=== PATIENT | male | born 1970 | race Caucasian/White ===

== ENCOUNTER 2020-10-26 06:16 | Inpatient (IN) ==
[2020-10-26] MEDS ORDERED: KETOROLAC TROMETHAMINE 15 MG/ML VIAL IV STA (06:50)
[2020-10-26] MEDS ORDERED: SODIUM CHLORIDE 0.9% 1000ML 1,000 ML IV ONE (07:10)
[2020-10-26] MEDS ORDERED: ACETAMINOPHEN 1,000 MG/100 ML VIAL IV STA (07:27)
[2020-10-26 07:29] LABS: INR 1.3 (0.9-1.1); Partial Thromboplastin Ratio 1.1; Partial Thromboplastin Time 27.9 Seconds (21.0-31.0); Prothrombin Time 13.1 Seconds (9.0-12.0)
[2020-10-26 07:31] LABS: Alanine Aminotransferase 28 U/L (12-78); Albumin Level 2.7 gm/dl (3.4-5.0); Aspartate Aminotransferase 78 U/L (15-37); BUN Creatinine Ratio 15.9 (10-20); Blood Urea Nitrogen 13 mg/dl (7-18); Carbon Dioxide 20 mmol/L (21-32); Chloride 101 mmol/L (98-107); Est GFR (African American) 119.3; Est GFR (Non-African American) 102.9; Glucose 103 mg/dl (70-99); Magnesium 2.2 mg/dl (1.8-2.4); Potassium 3.2 mmol/L (3.5-5.1); Sodium 131 mmol/L (136-145)
[2020-10-26 07:33] LABS: Albumin Globulin Ratio 0.6 (0.9-2); Alkaline Phosphatase 67 U/L (45-117); Bilirubin,Total 3.9 mg/dl (0.2-1); Globulin 4.4 gm/dl (2.5-4.0); Total Protein 7.1 gm/dl (6.4-8.2)
[2020-10-26 07:42] LABS: Procalcitonin 0.45 ng/ml (0-0.5)
--- NOTE | 2020-10-26 07:43 | Emergency Department Note ---
History of Present Illness General Chief complaint: Rash Stated complaint: KNEES AND ANKLES HURT,HANDS HURT,RASH ALL OVER Time Seen by Provider: 10/26/20 06:58 Source: patient and family (Spouse who is at the bedside) Mode of arrival: ambulatory Limitations: no limitations History of Present Illness Maximum Pain Intensity: 8 This patient comes in as described above. He is felt sick for about 4 days. He said he had a fever and just felt wiped out. He has had diffuse body aches particularly in his hands and feet. He had a rash starting yesterday morning. He was seen at the urgent care center and he said they ran some labs but they are all pending. He said initially his rash did itch but it just feels like it is burning now. Temperature up to 101.3 at 5 in the morning. No nausea or vomiting. Denies headache neck pain or stiffness. He has had severe joint aches started in the hips. No known tick bites. He does not feel weak. No abdominal pain or chest pain or shortness of breath no sore throat. His urine has been dark but he said no dysuria. No back pain. No diarrhea or blood or melena stool. No sick contacts. He did have Covid about a month and a half ago. Home Medications Medication Instructions Recorded Confirmed Type No Known Home Medications 08/27/19 10/26/20 History Allergies Allergy/AdvReac Type Severity Reaction Status Date / Time No Known Allergies Allergy Unverified 10/26/20 06:48 Past Med/Surg History Medical History (Updated 10/26/20 @ 15:04 by Oren Trujillo MD) Hypertension Family History Father Myocardial infarction Hypertension Grandfather Diabetes Social History Smoking Status: Former smoker Years Smoked: 41; Second Hand Exposure: Yes; Do You Dip or Chew Tobacco: Yes; Tobacco Cessation Education Requested by Patient: Yes Hx Alcohol Use: Yes (pt quit using alcohol in past 90 days) Alcohol type: hard liquor Preferred Language: Occitan Communication Ability: Effective Grinder Set Up Operator Required: No Beliefs That Will Affect Care: None Current Living Situation: Spouse Other Information That Helps Us Care for You: No Feels Safe at Home: Yes Assistive Devices: None Review of Systems A total of 10 systems reviewed and were otherwise negative Physical Exam Vital Signs Vital Signs - 24 hr 10/26/20 06:20 10/26/20 07:19 10/26/20 07:24 Temperature 37.3 C Temperature Source Temporal Artery Scan Pulse Rate 111 H 101 H Pulse Rate from SpO2 Sensor 101 H Respiratory Rate 20 20 Respiratory Effort / Characteristics Non-Labored Spontaneous Non-Labored Respiratory Depth Normal Respiratory Pattern Regular Blood Pressure 167/80 H 126/72 Blood Pressure Mean 109 90 Blood Pressure Position Sitting Pulse Oximetry 97 96 95 Oxygen Delivery Method Room Air Room Air Sepsis Recent Fever Within 48 Hours No Sepsis New/Unexplained Change in Mental Status No Sepsis Action Taken by Nursing No Action Required 10/26/20 07:30 10/26/20 08:00 Temperature Temperature Source Pulse Rate 106 H 101 H Pulse Rate from SpO2 Sensor 106 H 102 H Respiratory Rate 17 21 Respiratory Effort / Characteristics Respiratory Depth Respiratory Pattern Blood Pressure 117/78 124/65 Blood Pressure Mean 91 84 Blood Pressure Position Pulse Oximetry 97 96 Oxygen Delivery Method Sepsis Recent Fever Within 48 Hours Sepsis New/Unexplained Change in Mental Status Sepsis Action Taken by Nursing General: Well developed well nourished in no acute distress, breathing comfortably on room air. Normal speech HEENT: Normal cephalic atraumatic. Pupils are equal round and reactive to light. Extraocular movements are intact. Oropharynx is pink with moist mucous membranes. No swelling of the mouth lips or tongue. Neck: Supple with a midline trachea. No meningeal signs or stiffness, no JVD or bruits. No Stridor. Chest: Clear to auscultation bilaterally. No wheezes or rhonchi. No increased work of breathing. Heart: Regular rate and rhythm without murmurs or gallops. Abdomen: Soft nontender, nondistended without rebound guarding or rigidity. Extremities: No cyanosis clubbing or edema. No calf tenderness or assymetry Spine/Back. Non tender to palpation. No CVA tenderness Skin: Good turgor without rashes. Neurologic exam: Cranial nerves two through 12 are intact. Motor and sensation are intact and symmetrical throughout. Course Administered Medications Acetaminophen (Acetaminophen 325 Mg Tab) 650 mg PO Q4H PRN PRN Reason: Pain or Fever Stop: 11/25/20 10:15 Last Admin: 10/26/20 13:30 Dose: 650 mg Documented by: [id number] Sodium Chloride (Nss 1000ml) 1,000 mls @ 100 mls/hr IV .Q10H BLANCHE Stop: 11/25/20 10:15 Last Admin: 10/26/20 10:49 Dose: 100 mls/hr Documented by: [id number] Doxycycline Hyclate 100 mg/ (Dextrose) 110 mls @ 50 mls/hr IV Q12 BLANCHE Stop: 10/28/20 10:29 Last Infusion: 10/26/20 13:45 Dose: 0 mls/hr Documented by: [id number] Admin: 10/26/20 11:33 Dose: 50 mls/hr Documented by: [id number] Discontinued Medications Sodium Chloride (Nss 1000ml) 1,000 mls @ 999 mls/hr IV .Q1H1M ONE Stop: 10/26/20 08:10 Last Infusion: 10/26/20 08:20 Dose: 0 mls/hr Documented by: [id number] Admin: 10/26/20 07:19 Dose: 999 mls/hr Documented by: [id number] Acetaminophen (Ofirmev) 1,000 mg in 100 mls @ 400 mls/hr IV NOW STA Stop: 10/26/20 07:41 Last Admin: 10/26/20 07:31 Dose: Not Given Documented by: [id number] Ceftriaxone Sodium (Rocephin) 2,000 mg in 70 mls @ 140 mls/hr IV NOW STA Stop: 10/26/20 08:32 Last Infusion: 10/26/20 08:42 Dose: 0 mls/hr Documented by: [id number] Admin: 10/26/20 08:12 Dose: 140 mls/hr Documented by: [id number] Ketorolac Tromethamine (Ketorolac Tromethamine 15 Mg/Ml Vial) 10 mg IV NOW STA Stop: 10/26/20 06:51 Last Admin: 10/26/20 06:53 Dose: 10 mg Documented by: [id number] Medical Decision Making Differential Diagnosis Sepsis, tickborne illness, viral illness, Covid, thrombocytopenia, bone marrow process, liver disease, kidney disease, electrolyte or metabolic abnormality Laboratory Data Result diagrams: 10/26/20 06:54 10/26/20 06:54 Lab Results 10/26/20 10/26/20 10/26/20 Range/Units 06:54 06:54 06:54 WBC 5.52 (4.8-10.8) K/uL RBC 3.61 L (4.7-6.1) M/uL Hgb 11.8 L (14.0-18.0) g/dL Hct 34.0 L (42-52) % MCV 94.2 (80-100) fL MCH 32.7 (25-34) pg MCHC 34.7 (32-36) g/dL RDW Std Deviation 51.8 H (36.4-46.3) fL RDW Coeff of Mina 15.2 H (11.5-14.5) % Plt Count 77 L (130-400) K/uL MPV 10.5 H (7.4-10.4) fL Immature Gran % (Auto) 0.2 % Neut % (Auto) 73.6 % Lymph % (Auto) 17.0 % [place] % (Auto) 7.4 % Eos % (Auto) 1.1 % Baso % (Auto) 0.7 % Neut # (Auto) 4.06 (1.4-6.5) K/uL Lymph # (Auto) 0.94 L (1.2-3.4) K/uL [place] # (Auto) 0.41 (0.11-0.59) K/uL Eos # (Auto) 0.06 (0-0.5) K/uL Baso # (Auto) 0.04 (0-0.2) K/uL Immature Gran # (Auto) 0.01 (0.00-0.02) K/uL Platelet Estimate Decreased L (Normal) PT 13.1 H (9.0-12.0) Seconds INR 1.3 H (0.9-1.1) APTT 27.9 (21.0-31.0) Seconds PTT Ratio 1.1 Sodium 131 L (136-145) mmol/L Potassium 3.2 L (3.5-5.1) mmol/L Chloride 101 (98-107) mmol/L Carbon Dioxide 20 L (21-32) mmol/L Anion Gap 10.0 (3-11) BUN 13 (7-18) mg/dl Creatinine 0.81 (0.6-1.4) mg/dl Est Cr Clr Drug Dosing Not Reportable Est GFR ( Amer) 119.3 Est GFR (Non-Af Amer) 102.9 BUN/Creatinine Ratio 15.9 (10-20) Glucose 103 H (70-99) mg/dl Lactate (0.4-2.0) mmol/L Calcium 8.0 L (8.5-10.1) mg/dl Magnesium 2.2 (1.8-2.4) mg/dl Total Bilirubin 3.9 H (0.2-1) mg/dl AST 78 H (15-37) U/L ALT 28 (12-78) U/L Alkaline Phosphatase 67 (45-117) U/L Total Protein 7.1 (6.4-8.2) gm/dl Albumin 2.7 L (3.4-5.0) gm/dl Globulin 4.4 H (2.5-4.0) gm/dl Albumin/Globulin Ratio 0.6 L (0.9-2) Procalcitonin (0-0.5) ng/ml Anaplasma Smear See Comment Lyme Disease IgG Ab (Negative) Lyme Disease IgM Ab (Negative) COVID-19 Eval Order SARS-CoV-2, RNA, NAAT (NEGATIVE) 10/26/20 10/26/20 10/26/20 Range/Units 06:54 07:22 08:30 WBC (4.8-10.8) K/uL RBC (4.7-6.1) M/uL Hgb (14.0-18.0) g/dL Hct (42-52) % MCV (80-100) fL MCH (25-34) pg MCHC (32-36) g/dL RDW Std Deviation (36.4-46.3) fL RDW Coeff of Mina (11.5-14.5) % Plt Count (130-400) K/uL MPV (7.4-10.4) fL Immature Gran % (Auto) % Neut % (Auto) % Lymph % (Auto) % [place] % (Auto) % Eos % (Auto) % Baso % (Auto) % Neut # (Auto) (1.4-6.5) K/uL Lymph # (Auto) (1.2-3.4) K/uL [place] # (Auto) (0.11-0.59) K/uL Eos # (Auto) (0-0.5) K/uL Baso # (Auto) (0-0.2) K/uL Immature Gran # (Auto) (0.00-0.02) K/uL Platelet Estimate (Normal) PT (9.0-12.0) Seconds INR (0.9-1.1) APTT (21.0-31.0) Seconds PTT Ratio Sodium (136-145) mmol/L Potassium (3.5-5.1) mmol/L Chloride (98-107) mmol/L Carbon Dioxide (21-32) mmol/L Anion Gap (3-11) BUN (7-18) mg/dl Creatinine (0.6-1.4) mg/dl Est Cr Clr Drug Dosing Est GFR ( Amer) Est GFR (Non-Af Amer) BUN/Creatinine Ratio (10-20) Glucose (70-99) mg/dl Lactate 2.7 H* (0.4-2.0) mmol/L Calcium (8.5-10.1) mg/dl Magnesium (1.8-2.4) mg/dl Total Bilirubin (0.2-1) mg/dl AST (15-37) U/L ALT (12-78) U/L Alkaline Phosphatase (45-117) U/L Total Protein (6.4-8.2) gm/dl Albumin (3.4-5.0) gm/dl Globulin (2.5-4.0) gm/dl Albumin/Globulin Ratio (0.9-2) Procalcitonin 0.45 (0-0.5) ng/ml Anaplasma Smear Lyme Disease IgG Ab Negative (Negative) Lyme Disease IgM Ab Negative (Negative) COVID-19 Eval Order Covid19 IDNow atMWIC SARS-CoV-2, RNA, NAAT (NEGATIVE) 10/26/20 Range/Units 08:30 WBC (4.8-10.8) K/uL RBC (4.7-6.1) M/uL Hgb (14.0-18.0) g/dL Hct (42-52) % MCV (80-100) fL MCH (25-34) pg MCHC (32-36) g/dL RDW Std Deviation (36.4-46.3) fL RDW Coeff of Mina (11.5-14.5) % Plt Count (130-400) K/uL MPV (7.4-10.4) fL Immature Gran % (Auto) % Neut % (Auto) % Lymph % (Auto) % [place] % (Auto) % Eos % (Auto) % Baso % (Auto) % Neut # (Auto) (1.4-6.5) K/uL Lymph # (Auto) (1.2-3.4) K/uL [place] # (Auto) (0.11-0.59) K/uL Eos # (Auto) (0-0.5) K/uL Baso # (Auto) (0-0.2) K/uL Immature Gran # (Auto) (0.00-0.02) K/uL Platelet Estimate (Normal) PT (9.0-12.0) Seconds INR (0.9-1.1) APTT (21.0-31.0) Seconds PTT Ratio Sodium (136-145) mmol/L Potassium (3.5-5.1) mmol/L Chloride (98-107) mmol/L Carbon Dioxide (21-32) mmol/L Anion Gap (3-11) BUN (7-18) mg/dl Creatinine (0.6-1.4) mg/dl Est Cr Clr Drug Dosing Est GFR ( Amer) Est GFR (Non-Af Amer) BUN/Creatinine Ratio (10-20) Glucose (70-99) mg/dl Lactate (0.4-2.0) mmol/L Calcium (8.5-10.1) mg/dl Magnesium (1.8-2.4) mg/dl Total Bilirubin (0.2-1) mg/dl AST (15-37) U/L ALT (12-78) U/L Alkaline Phosphatase (45-117) U/L Total Protein (6.4-8.2) gm/dl Albumin (3.4-5.0) gm/dl Globulin (2.5-4.0) gm/dl Albumin/Globulin Ratio (0.9-2) Procalcitonin (0-0.5) ng/ml Anaplasma Smear Lyme Disease IgG Ab (Negative) Lyme Disease IgM Ab (Negative) COVID-19 Eval Order SARS-CoV-2, RNA, NAAT NEGATIVE (NEGATIVE) Imaging Data My Impression: Chest x-rayno acute infiltrate, failure, pneumothorax Radiologist's Impression: XR chest 1V portable HISTORY: SEPSIS COMPARISON: Chest 08/27/2019. FINDINGS: No pneumothorax. No pleural effusions. The cardiac silhouette remains borderline enlarged. No evidence for pulmonary edema. No new focal lung consolidations to suggest pneumonia. IMPRESSION: No significant change compared to the prior study. No acute process. ECG Data Attestation: I personally reviewed and interpreted this ECG as follows: Indication: + weakness Rate (beats per minute): 100 Rhythm: + normal sinus ECG Intervals/blocks: + Normal QRS, + Prolonged QT and + Normal KS ECG Eagle: + Normal ECG ST segments: + Normal ST segments ECG Findings: no PACs and no PVCs Comparison ECG Date: from (08/27/19) Change: no significant change MDM Narrative This patient comes in with body aches and a fever and rash. He looks well on exam is nontoxic he has no headache neck pain or stiffness. No known bug bites. His rash in the torso is more diffuse and does emily in the shins it does not emily although there is some chronic vascular insufficiency changes. IV asked established hydrated with normal saline boluses. His white count is not elevated. His platelets are low at 77. I did give him Rocephin 2 g IV to cover the possibility of a tickborne illness or bacterial illness. Cultures have been sent as well as lactic acid is mildly elevated in the 2 range. Chest x-ray is unremarkable. Lyme and anaplasmosis testing so far are negative but it could still be a tickborne illness. Additionally, it could be a viral illness. Covid testing was negative. His bilirubin is moderately elevated. I do think he needs to be admitted for further treatment and evaluation he has been covered with IV antibiotics and cultures are pending. I have consulted Dr. Maldonado who saw the patient for these measures. Continuous cardiac monitoring: Order was placed in the EMR for continuous cardiac monitoring. The patient was noted to be in normal sinus rhythm with a rate of 95 Impression & Plan Sepsis, Rash, Thrombocytopenia, Ache in joint, Lab test negative for COVID-19 virus Discharge Plan Visit Data Chief Complaint: Rash Stated Complaint: KNEES AND ANKLES HURT,HANDS HURT,RASH ALL OVER ED Provider: Oren Trujillo Discharge Problem: Sepsis, Rash, Thrombocytopenia, Ache in joint, Lab test negative for COVID-19 virus Patient Disposition: Admitted As Inpatient Discharge Instructions Interventions: ED Discharge Assessment Last Done: 10/26/20 09:41 Discharge Problem: Sepsis Qualifiers: Sepsis type: sepsis due to unspecified organism Sepsis acute organ dysfunction status: unspecified Qualified Code(s): A41.9 - Sepsis, unspecified organism Ache in joint Qualifiers: Joint pain location: unspecified Qualified Code(s): M25.50 - Pain in unspecified joint
--- NOTE | 2020-10-26 07:45 | XRay Report ---
XR chest 1V portable HISTORY: SEPSIS COMPARISON: Chest 08/27/2019. FINDINGS: No pneumothorax. No pleural effusions. The cardiac silhouette remains borderline enlarged. No evidence for pulmonary edema. No new focal lung consolidations to suggest pneumonia. IMPRESSION: No significant change compared to the prior study. No acute process. ACT 112: Negative or not required by law. Electronically signed by: Blair Willis M.D. 10/26/2020 7:43 AM
[2020-10-26 07:46] LABS: Hemoglobin 11.8 g/dL (14.0-18.0); Mean Corpuscular Hemoglobin 32.7 pg (25-34); Mean Corpuscular Hgb Conc 34.7 g/dL (32-36); Mean Corpuscular Volume 94.2 fL (80-100); Mean Platelet Volume 10.5 fL (7.4-10.4); Platelet Count 77 K/uL (130-400); RDW Coefficient of Variation 15.2 % (11.5-14.5); RDW Standard Deviation 51.8 fL (36.4-46.3); Red Blood Count 3.61 M/uL (4.7-6.1); White Blood Count 5.52 K/uL (4.8-10.8)
[2020-10-26 07:48] LABS: Basophils # (auto) 0.04 K/uL (0-0.2); Basophils % (auto) 0.7 %; Eosinophils # (auto) 0.06 K/uL (0-0.5); Eosinophils % (auto) 1.1 %; Immature Granulocytes # (auto) 0.01 K/uL (0.00-0.02); Immature Granulocytes % (auto) 0.2 %; Lyme Ab IgG w/WB Rflx Negative (Negative); Lyme Ab IgM w/WB Rflx Negative (Negative); Lymphocytes # (auto) 0.94 K/uL (1.2-3.4); Monocytes # (auto) 0.41 K/uL (0.11-0.59); Monocytes % (auto) 7.4 %; Neutrophils # (auto) 4.06 K/uL (1.4-6.5); Neutrophils % (auto) 73.6 %; Platelet Estimate Decreased (Normal)
[2020-10-26] MEDS ORDERED: cefTRIAXone SODIUM 2,000 MG/70 ML BAG IV STA (08:03)
[2020-10-26 10:04] LABS: Appearance Urine Clear (Clear); Bacteria Urine Automated Negative (Negative); Blood Urine Negative (Negative); Color Urine Orange; Glucose Urine UA Negative (Negative); Ketones Urine Trace (Negative); Leukocyte Esterase Urine 1+ (Negative); Nitrite Urine Positive (Negative); Protein Urine Trace (Negative); RBC Urine Automated 0-4 /hpf (0-4); Specific Gravity Urine 1.024 (1.000-1.030); Urobilinogen Urine Negative (Negative); pH Urine 5.5 (4.5-7.5)
[2020-10-26 10:10] LABS: Bilirubin Urine 1+ (Negative)
[2020-10-26] MEDS ORDERED: ONDANSETRON INJ 2 MG/ML 2 ML VIAL IV PRN (10:16)
[2020-10-26] MEDS: SODIUM CHLORIDE 0.9% 1000ML 1,000 ML IV SCH ×2 (10:49→20:43)
[2020-10-26] MEDS: DOXYCYCLINE HYCLATE 100 MG in DEXTROSE 5% 100 ML IV SCH ×2 (11:33→20:43)
--- NOTE | 2020-10-26 12:00 | Ultrasound Report ---
ULTRASOUND ABDOMEN COMPLETE CLINICAL HISTORY: Sepsis. Elevated bilirubin. COMPARISON STUDY: No priors. TECHNIQUE: Real-time, grayscale, and color flow sonography of the abdomen was performed. Images are r eviewed in the transverse and longitudinal planes. FINDINGS: Liver: The liver is enlarged, cirrhotic in morphology, and heterogeneous in echotexture. There is nod ularity of the hepatic surface contour. There is no intrahepatic biliary ductal dilatation. The main portal vein is patent. Gallbladder: The gallbladder is normal in appearance. No gallstones are identified. There is no gallb ladder wall thickening or pericholecystic fluid. A sonographic Baires's sign is reportedly absent. Th e common bile duct measures up to 0.7 cm in diameter. Pancreas: Not well visualized due to overlying bowel gas. Spleen: The spleen is enlarged and heterogeneous, measuring 20.3 cm in length. Kidneys: The kidneys are normal in size and echotexture. There is no hydronephrosis. The right kidney measures 15.3 cm in length and the left kidney measures 12.8 cm in length. No shadowing calculi are identified. Abdominal vasculature: Visualized portions of the abdominal aorta and IVC are normal as imaged. Ascites: None. IMPRESSION: 1. The liver is enlarged, cirrhotic in morphology, and heterogeneous in echotexture. 2. Marked splenomegaly. 3. No gallstones are identified. ACT 112: Negative or not required by law. Electronically signed by: Demetrius Whitman M.D. 10/26/2020 11:58 AM
[2020-10-26] MEDS: ACETAMINOPHEN 325 MG TAB PO PRN ×2 (13:30→19:38)
--- NOTE | 2020-10-26 15:08 | History & Physical Report ---
Date of Service October 26, 2020 Assessment & Plan (1) Sepsis: fever at home of 101.3, tachycardia unclear etiology, could be viral infection vs tick born illness no evidence of pneumonia, UTI or intra-abdominal infection continue NSS 100cc/hr for today Tylenol PRN, Toradol IV PRN for joint pain (2) Rash: suspect virus vs Lyme or anaplasmosis monitor for improvement (3) Thrombocytopenia: low at 77k, confirmed that there is no clumping could be multifactorial with splenomegaly suspected from hepatomegaly also, acute reaction to viral or bacterial infection monitor platelets closely hold on DVT prophylaxis (4) Arthralgia: severe joint pain, given clinical picture would fit with a reactive arthritis check ESR and CRP this afternoon his pain is already a lot better with just Tylenol (5) Cirrhosis: abdominal US with evidence of cirrhosis, suspect this is due to heavy alcohol abuse for 30 years bilirubin is 3.9, platelets 77k, INR 1.3 check hepatitis panel this afternoon discussed importance of continued abstinence from alcohol recommend follow up with gastroenterology in clinic, will need to follow LFT, platelets etc. (6) History of alcohol abuse: heavy abuse for 30 years, could drink up to a bottle a day sober for 90 days now encouraged him to remain sober as he cannot damage his liver further (7) Elevated bilirubin: 3.9, he says his urine has been dark for several weeks so might not be an acute rise in bilirubin no obstruction on abdominal US repeat this afternoon and tomorrow morning (8) Elevated INR: due to cirrhosis could be DIC? PTT is normal which argues against this will repeat INR, PTT, fibrin, degradation products, CBC (9) Hypokalemia: give 20mEq BID (10) Anemia: normocytic, 11.8, it was normal at the beginning of the year, large drop in a few months also has thrombocytopenia, rash that appears like purpura check peripheral smear to look for MAHA Admission and Anticipated Discharge Date Admission Date: October 26, 2020 History of Present Illness Chief Complaint: I hurt all over, could not walk Primary Care Provider: NO PCP 49 yo male with a history of alcohol abuse but no other history, presents to the ED this morning with complaint of diffuse rash and severe joint aches. He says that the rash started yesterday around noon, diffuse on feet, legs, arms, hands, chest and back but most intense on his legs and feet. He also noted some swelling in his legs bilaterally. As time went on he developed joint pains in his wrists, elbows, knees, ankles. The pain became very severe last night to the point that he could not even walk, he needed his sons to help him walk to the car. He has never experienced symptoms like this in the past. Two days ago he reports some mild flu like symptoms of malaise, low grade temperature, fatigue but these resolved after 24 hours. He says he normally does not get sick, never goes to the doctor. No one else around him is ill. He did not take Tylenol or ibuprofen because he did not want to harm his kidneys. He presented to the ED with tachycardia but BP preserved, RR normal, no fever and no hypoxia. WBC normal, Hb low at 11, platelets low at 77k. INR up slightly at 1.3, PTT normal. Na low at 131, K 3.2, Cr 0.8 and BUN 13. Lactic acid 2.0, total bili 3.9, AST 78, ALT and Alk phos normal. Urine very dark with no signs of UTI. CXR normal. Blood cultures obtained. COVID negative, Lyme screen negative, anaplasmosis smear normal. He was given NSS bolus and Rocephin IV and Tylenol. Currently he feels a lot better, the joint pains are significantly improved, still has the rash but more prominent in his legs. He is eating and drinking well, looking forward to dinner. He admits to heavy drinking for 30 years, says he stopped drinking 90 days ago. He said it was possible for him to drink a fifth of hard liquor a day. He has never been told he has cirrhosis. His is at the bedside, she confirms that he stopped drinking 90 days ago but was a very heavy drinker prior to that. Allergies Allergy/AdvReac Type Severity Reaction Status Date / Time No Known Allergies Allergy Unverified 10/26/20 06:48 Home Medications Medication Instructions Recorded Confirmed Type No Known Home Medications 08/27/19 10/26/20 History Past Med/Surg History Medical History (Updated 10/26/20 @ 15:19 by Lance Maldonado DO) Hypertension Family History Father Myocardial infarction Hypertension Grandfather Diabetes Social History Smoking Status: Former smoker Years Smoked: 41; Smoking End Date: Smoked for 41 years; Second Hand Exposure: Yes; Do You Dip or Chew Tobacco: Yes; Tobacco Cessation Education Requested by Patient: Yes Hx Alcohol Use: Yes (pt quit using alcohol in past 90 days) Alcohol type: hard liquor Preferred Language: Welsh Communication Ability: Effective Banquet Prep Cook Required: No Beliefs That Will Affect Care: None Current Living Situation: Spouse Other Information That Helps Us Care for You: No Feels Safe at Home: Yes Safety Concerns: Feels Safe At This Time Assistive Devices: None Review of Systems Review of Systems: All systems reviewed & are unremarkable except as noted in HPI & below Physical Exam Constitutional: WD/WN, vitals as above comfortable and + overweight; no acute distress Eyes: normal visual hamlin by confrontation, PERRL and EOM intact bilaterally; sclerae not anicteric ENMT: external ear and nose normal, oropharynx normal Neck: trachea midline, no thyromegaly Respiratory: normal respiratory effort, lungs clear to auscultation Cardiovascular: RRR, no murmur, no edema Gastrointestinal (Abdomen): normal bowel sounds, soft, nontender, no hepatosplenomegaly Musculoskeletal: no cyanosis or clubbing, extremities motor strength 5/5 Skin: + rash (diffuse, red, worst on legs/feet) Neurologic: patellar DTR's 2+ bilat, sensation intact and PERRL, EOMI, accommodation nl, no face palsy, no dysarthria Psychiatric: A+Ox3, euthymic affect Lymphatic: no cervical or axillary lymphadenopathy Results & Data Results & Data ([facility]) Vital Signs (Past 12 Hours) Vital Signs Temp Pulse Pulse Resp BP BP Pulse Ox 10/26/20 11:32 98 H 10/26/20 10:22 36.8 C 100 H 20 132/74 93 10/26/20 10:17 36.8 C 100 H 20 132/74 93 10/26/20 09:07 112 H 24 115/51 L 95 10/26/20 08:00 101 H 21 124/65 96 10/26/20 07:30 106 H 17 117/78 97 10/26/20 07:24 95 10/26/20 07:19 101 H 20 126/72 96 10/26/20 06:20 37.3 C 111 H 20 167/80 H 97 Laboratory Results Laboratory Results - last 24 hr 10/26/20 10/26/20 10/26/20 06:54 06:54 06:54 WBC 5.52 RBC 3.61 L Hgb 11.8 L Hct 34.0 L MCV 94.2 MCH 32.7 MCHC 34.7 RDW Std Deviation 51.8 H RDW Coeff of Mina 15.2 H Plt Count 77 L MPV 10.5 H Immature Gran % (Auto) 0.2 Neut % (Auto) 73.6 Lymph % (Auto) 17.0 Jay % (Auto) 7.4 Eos % (Auto) 1.1 Baso % (Auto) 0.7 Neut # (Auto) 4.06 Lymph # (Auto) 0.94 L Jay # (Auto) 0.41 Eos # (Auto) 0.06 Baso # (Auto) 0.04 Immature Gran # (Auto) 0.01 Platelet Estimate Decreased L PT 13.1 H INR 1.3 H APTT 27.9 PTT Ratio 1.1 Sodium 131 L Potassium 3.2 L Chloride 101 Carbon Dioxide 20 L Anion Gap 10.0 BUN 13 Creatinine 0.81 Est Cr Clr Drug Dosing Not Reportable Est GFR ( Amer) 119.3 Est GFR (Non-Af Amer) 102.9 BUN/Creatinine Ratio 15.9 Glucose 103 H Lactate Calcium 8.0 L Magnesium 2.2 Total Bilirubin 3.9 H AST 78 H ALT 28 Alkaline Phosphatase 67 Total Protein 7.1 Albumin 2.7 L Globulin 4.4 H Albumin/Globulin Ratio 0.6 L Procalcitonin Urine Color Urine Appearance Urine pH Ur Specific [place] Urine Protein Urine Glucose (UA) Urine Ketones Urine Blood Urine Nitrite Urine Bilirubin Urine Urobilinogen Ur Leukocyte Esterase Urine WBC (Auto) Urine RBC (Auto) U Hyaline Cast (Auto) U Epithel Cells (Auto) Urine Bacteria (Auto) Anaplasma Smear See Comment A. phagocytophilum DNA Lyme Disease IgG Ab Lyme Disease IgM Ab COVID-19 Eval Order SARS-CoV-2, RNA, NAAT 10/26/20 10/26/20 10/26/20 06:54 06:54 07:22 WBC RBC Hgb Hct MCV MCH MCHC RDW Std Deviation RDW Coeff of Mina Plt Count MPV Immature Gran % (Auto) Neut % (Auto) Lymph % (Auto) Jay % (Auto) Eos % (Auto) Baso % (Auto) Neut # (Auto) Lymph # (Auto) Jay # (Auto) Eos # (Auto) Baso # (Auto) Immature Gran # (Auto) Platelet Estimate PT INR APTT PTT Ratio Sodium Potassium Chloride Carbon Dioxide Anion Gap BUN Creatinine Est Cr Clr Drug Dosing Est GFR ( Amer) Est GFR (Non-Af Amer) BUN/Creatinine Ratio Glucose Lactate 2.7 H* Calcium Magnesium Total Bilirubin AST ALT Alkaline Phosphatase Total Protein Albumin Globulin Albumin/Globulin Ratio Procalcitonin 0.45 Urine Color Urine Appearance Urine pH Ur Specific [place] Urine Protein Urine Glucose (UA) Urine Ketones Urine Blood Urine Nitrite Urine Bilirubin Urine Urobilinogen Ur Leukocyte Esterase Urine WBC (Auto) Urine RBC (Auto) U Hyaline Cast (Auto) U Epithel Cells (Auto) Urine Bacteria (Auto) Anaplasma Smear A. phagocytophilum DNA Pending Lyme Disease IgG Ab Negative Lyme Disease IgM Ab Negative COVID-19 Eval Order SARS-CoV-2, RNA, NAAT 10/26/20 10/26/20 10/26/20 08:30 08:30 09:12 WBC RBC Hgb Hct MCV MCH MCHC RDW Std Deviation RDW Coeff of Mina Plt Count MPV Immature Gran % (Auto) Neut % (Auto) Lymph % (Auto) Jay % (Auto) Eos % (Auto) Baso % (Auto) Neut # (Auto) Lymph # (Auto) Jay # (Auto) Eos # (Auto) Baso # (Auto) Immature Gran # (Auto) Platelet Estimate PT INR APTT PTT Ratio Sodium Potassium Chloride Carbon Dioxide Anion Gap BUN Creatinine Est Cr Clr Drug Dosing Est GFR ( Amer) Est GFR (Non-Af Amer) BUN/Creatinine Ratio Glucose Lactate 2.0 Calcium Magnesium Total Bilirubin AST ALT Alkaline Phosphatase Total Protein Albumin Globulin Albumin/Globulin Ratio Procalcitonin Urine Color Urine Appearance Urine pH Ur Specific [place] Urine Protein Urine Glucose (UA) Urine Ketones Urine Blood Urine Nitrite Urine Bilirubin Urine Urobilinogen Ur Leukocyte Esterase Urine WBC (Auto) Urine RBC (Auto) U Hyaline Cast (Auto) U Epithel Cells (Auto) Urine Bacteria (Auto) Anaplasma Smear A. phagocytophilum DNA Lyme Disease IgG Ab Lyme Disease IgM Ab COVID-19 Eval [facility] SARS-CoV-2, RNA, NAAT NEGATIVE 10/26/20 09:40 WBC RBC Hgb Hct MCV MCH MCHC RDW Std Deviation RDW Coeff of Mina Plt Count MPV Immature Gran % (Auto) Neut % (Auto) Lymph % (Auto) Jay % (Auto) Eos % (Auto) Baso % (Auto) Neut # (Auto) Lymph # (Auto) Jay # (Auto) Eos # (Auto) Baso # (Auto) Immature Gran # (Auto) Platelet Estimate PT INR APTT PTT Ratio Sodium Potassium Chloride Carbon Dioxide Anion Gap BUN Creatinine Est Cr Clr Drug Dosing Est GFR ( Amer) Est GFR (Non-Af Amer) BUN/Creatinine Ratio Glucose Lactate Calcium Magnesium Total Bilirubin AST ALT Alkaline Phosphatase Total Protein Albumin Globulin Albumin/Globulin Ratio Procalcitonin Urine Color [place] Urine Appearance Clear Urine pH 5.5 Ur Specific [place] 1.024 Urine Protein Trace H Urine Glucose (UA) Negative Urine Ketones Trace H Urine Blood Negative Urine Nitrite Positive A Urine Bilirubin 1+ H Urine Urobilinogen Negative Ur Leukocyte Esterase 1+ H Urine WBC (Auto) 1-5 Urine RBC (Auto) 0-4 U Hyaline Cast (Auto) 5-10 H U Epithel Cells (Auto) 10-20 H Urine Bacteria (Auto) Negative Anaplasma Smear A. phagocytophilum DNA Lyme Disease IgG Ab Lyme Disease IgM Ab COVID-19 Eval Order SARS-CoV-2, RNA, NAAT Diagnostic Findings Abdominal ultrasound IMPRESSION: 1. The liver is enlarged, cirrhotic in morphology, and heterogeneous in ech otexture. 2. Marked splenomegaly. 3. No gallstones are identified. XR chest 1V portable FINDINGS: No pneumothorax. No pleural effusions. The cardiac silhouette remains borderline enlarged. No evidence for pulmonary edema. No new focal lung consolidations to suggest pneumonia. IMPRESSION: No significant change compared to the prior study. No acute process. Code Status & VTE Plan VTE Prophylaxis Plan VTE Prophylaxis will be ordered: Yes PG Care Time/CCT Total # of Minutes Spent Total Time Spent with Patient: Total time spent is greater than 50% in coordination of care (as documented) at patient's floor/unit and/or counseling patient: Coding Level of Care Code 75381 Initial Inpt Care Lvl 3 Diagnoses Sepsis A41.9 Sepsis acute organ dysfunction status: unspecified Sepsis type: sepsis due to unspecified organism Rash R21 Thrombocytopenia D69.6 Arthralgia M25.50 Cirrhosis K74.60 History of alcohol abuse F10.11 Elevated bilirubin R17 Elevated INR R79.1 Hypokalemia E87.6 Anemia D64.9 (1) Sepsis Sepsis acute organ dysfunction status: unspecified Sepsis type: sepsis due to unspecified organism Qualified Code(s): A41.9 - Sepsis, unspecified organism
[2020-10-26 16:28] LABS: Hematocrit (blood only) 32.8 % (42-52); Hemoglobin 11.4 g/dL (14.0-18.0); Mean Corpuscular Hemoglobin 32.8 pg (25-34); Mean Corpuscular Hgb Conc 34.8 g/dL (32-36); Mean Corpuscular Volume 94.3 fL (80-100); RDW Coefficient of Variation 15.4 % (11.5-14.5); RDW Standard Deviation 53.3 fL (36.4-46.3); Red Blood Count 3.48 M/uL (4.7-6.1); White Blood Count 3.92 K/uL (4.8-10.8)
[2020-10-26 16:48] LABS: Albumin Level 2.5 gm/dl (3.4-5.0); BUN Creatinine Ratio 18.5 (10-20); Calcium 7.5 mg/dl (8.5-10.1); Creatinine Clr Calc Pharmacy 198.8 ml/min; Est GFR (African American) 122.4; Est GFR (Non-African American) 105.6; Potassium 3.2 mmol/L (3.5-5.1)
[2020-10-26 16:54] LABS: Albumin Globulin Ratio 0.6 (0.9-2); Bilirubin,Total 2.8 mg/dl (0.2-1); C Reactive Protein 9.53 mg/dl (0-0.29); Ferritin 356.7 ng/ml (8-388); Globulin 4.3 gm/dl (2.5-4.0); Total Protein 6.8 gm/dl (6.4-8.2)
[2020-10-26 17:03] LABS: Fibrinogen 312 mg/dl (184-400); INR 1.3 (0.9-1.1); Partial Thromboplastin Ratio 1.1; Partial Thromboplastin Time 29.4 Seconds (21.0-31.0); Prothrombin Time 12.7 Seconds (9.0-12.0)
[2020-10-26 17:04] LABS: Mean Platelet Volume 10.3 fL (7.4-10.4); Platelet Count 67 K/uL (130-400)
[2020-10-26 17:10] LABS: Hepatitis B Surf Ag Rflx Conf Neg (Neg)
[2020-10-26 17:13] LABS: Folate (Folic Acid) 11.9 ng/ml (>5.38)
[2020-10-26 17:19] LABS: Basophils # (auto) 0.04 K/uL (0-0.2); Eosinophils # (auto) 0.09 K/uL (0-0.5); Eosinophils % (auto) 2.3 %; Immature Granulocytes # (auto) 0.01 K/uL (0.00-0.02); Immature Granulocytes % (auto) 0.3 %; Lymphocytes # (auto) 0.78 K/uL (1.2-3.4); Lymphocytes % (auto) 19.9 %; Monocytes % (auto) 7.7 %; Neutrophils % (auto) 68.8 %
[2020-10-26 17:39] LABS: Hepatitis C IgG 13Yrs+Old_Rflx Neg (Neg)
[2020-10-26] MEDS: POTASSIUM CHLORIDE CRTAB 20 MEQ TABCR PO SCH (20:48)
[2020-10-26] MEDS: KETOROLAC TROMETHAMINE 15 MG/ML VIAL IV PRN (22:56)
[2020-10-27] MEDS ORDERED: SODIUM CHLORIDE 0.9% 1000ML 1,000 ML IV ONE (03:01)
--- NOTE | 2020-10-27 05:59 | Electrocardiogram Report ---
Test Reason : Blood Pressure : / mmHG Vent. Rate : 100 BPM Atrial Rate : 100 BPM P-R Int : 174 ms QRS Dur : 100 ms QT Int : 388 ms P-R-T Axes : 027 006 000 degrees QTc Int : 500 ms Normal sinus rhythm Prolonged QT Abnormal ECG When compared with ECG of 27-AUG-2019 11:29, No significant change was found Confirmed by Collins Solano ([id number]) on 10/27/2020 5:59:26 AM Referred By: REFERRED SELF Confirmed By:Collins Solano
[2020-10-27 07:22] LABS: Hematocrit (blood only) 34.2 % (42-52); Hemoglobin 11.9 g/dL (14.0-18.0); Mean Corpuscular Hemoglobin 32.7 pg (25-34); Mean Corpuscular Hgb Conc 34.8 g/dL (32-36); RDW Coefficient of Variation 15.6 % (11.5-14.5); Red Blood Count 3.64 M/uL (4.7-6.1); White Blood Count 4.42 K/uL (4.8-10.8)
[2020-10-27 07:26] LABS: Mean Platelet Volume 10.6 fL (7.4-10.4); Platelet Count 80 K/uL (130-400)
[2020-10-27 07:42] LABS: ALC (manual) 0.39 K/uL (1.2-3.4); ANC (manual) 3.83 K/uL (1.4-6.5); Basophils # (manual) 0.04 K/uL (0-0.2); Basophils % (manual) 0.9 %; Eosinophils # (manual) 0.04 K/uL (0-0.5); Eosinophils % (manual) 0.9 %; Lymphocytes # (manual) 0.19 K/uL (1.2-3.4); Lymphocytes % (manual) 4.4 %; Monocytes # (manual) 0.08 K/uL (0.11-0.59); Monocytes % (manual) 1.8 %; Myelocytes # (manual) 0.04 K/uL (0-0); Myelocytes % (manual) 0.9 %; Neutrophils # (manual) 3.83 K/uL (1.4-6.5); Neutrophils % (manual) 86.7 %; Plasma Cells # (manual) 0.19 K/uL (0-0); Plasma Cells % (manual) 4.4 %; RBC Morphology Unremarkable
[2020-10-27 07:52] LABS: Albumin Level 2.4 gm/dl (3.4-5.0); BUN Creatinine Ratio 19.1 (10-20); Calcium 7.9 mg/dl (8.5-10.1); Creatinine Clr Calc Pharmacy 182.7 ml/min; Est GFR (African American) 118.7; Est GFR (Non-African American) 102.4; Potassium 3.5 mmol/L (3.5-5.1)
[2020-10-27 07:58] LABS: Albumin Globulin Ratio 0.6 (0.9-2); Bilirubin,Total 3.4 mg/dl (0.2-1); Globulin 4.3 gm/dl (2.5-4.0); Total Protein 6.7 gm/dl (6.4-8.2)
[2020-10-27] MEDS: CEFEPIME 2,000 MG in SYRINGE 0 ML IV SCH ×2 (08:41→21:11)
[2020-10-27] MEDS: DOXYCYCLINE HYCLATE 100 MG in DEXTROSE 5% 100 ML IV SCH ×2 (08:41→21:11)
[2020-10-27] MEDS: POTASSIUM CHLORIDE CRTAB 20 MEQ TABCR PO SCH (08:42)
[2020-10-27] MEDS: ACETAMINOPHEN 325 MG TAB PO PRN ×2 (08:50→19:34)
[2020-10-27] MEDS ORDERED: cefTRIAXone SODIUM 2,000 MG in DEXTROSE 5% 50 ML IV SCH (09:00)
[2020-10-27] MEDS ORDERED: OPTIRAY 320 100ml IV ONE (10:23)
--- NOTE | 2020-10-27 10:26 | Hospitalist Progress Note ---
Date of Service October 27, 2020 Assessment & Plan (1) Anaplasmosis: suspected, the peripheral smear did not show this but PCR testing is pending he has seen ticks recently, cannot remember getting a bite sudden onset of fever, arthralgias, weakness maculopapular rash with some petechiae leukopenia with left shift, new anemia, new thrombocytopenia mild transaminitis continue Doxycycline 100mg BID await confirmatory PCR testing plan for 10 days total treatment (2) Sepsis: fever at home of 101.3, tachycardia now with fever here of 38.9 most likely etiology seems to be anaplasmosis, see above CT chest shows no pneumonia CT abdomen/pelvis shows no infectious or inflammatory changes bland urinalysis Lyme screen negative COVID, influenza negative EBV, CMV, hepatitis panel ordered stop IV fluids, eating and drinking well Tylenol PRN, Toradol IV PRN for joint pain (3) Rash: suspect anaplasmosis as it is maculopapular, some petechiae, predominantly over extremities sudden onset day prior to admission (4) Thrombocytopenia: low at 77k, confirmed that there is no clumping could be multifactorial with splenomegaly suspected from hepatomegaly also, acute reaction to anaplasmosis platelets stable at 80k will start on Lovenox for DVT prophylaxis (5) Arthralgia: severe joint pain, given clinical picture would fit with a reactive arthritis ESR is 28, CRP is elevated could be anaplasmosis his pain is already a lot better with just Tylenol (6) Cirrhosis: abdominal US with evidence of cirrhosis, suspect this is due to heavy alcohol abuse for 30 years bilirubin is 3.9, platelets 77k, INR 1.3 on admission hepatitis C negative, hepatitis B Ab pending, hepatitis A Ab pending discussed importance of continued abstinence from alcohol recommend follow up with gastroenterology in clinic, will need to follow LFT, platelets etc. (7) History of alcohol abuse: heavy abuse for 30 years, could drink up to a bottle a day sober for 90 days now encouraged him to remain sober as he cannot damage his liver further (8) Elevated bilirubin: 3.9, he says his urine has been dark for several weeks so might not be an acute rise in bilirubin no obstruction on abdominal US no obstruction on CT abd/pelvis bili is still elevated at 3.4, not going up (9) Elevated INR: due to cirrhosis? could be DIC? PTT is normal which argues against this INR is 1.3, but PTT on repeat is normal, fibrin degradation products slightly high at 10-40 suspect this is due to acute infection (10) Hypokalemia: give 20mEq BID resolved today (11) Anemia: normocytic, 11.8, it was normal at the beginning of the year, large drop in a few months also has thrombocytopenia, rash that appears like purpura check peripheral smear to look for MAHA - no evidence of such of note, anaplasmosis can cause an acute anemia folate and B12 normal, normal ferritin (12) Tachycardia: sinus tachycardia, 110-130's no chest pain correlates with fever spikes reviewed CT chest, main pulmonary arteries are clear discussed checking CTA chest with patient, not interested in further scans right now start on Lovenox 60 q12 due to large body habitus and inflammation consider CTA chest tomorrow if still tachycardic Admission and Anticipated Discharge Date Admission Date: October 26, 2020 Subjective patient spiking fevers last night, HR up to 130-140's labs this morning show leukopenia, anemia, thrombocytopenia fibrin degradation products were up at 10-40 yesterday Cr 0.8, K 3.5, bili 3.4, AST 50, Alk phos normal appreciate peripheral smear review from pathology, plasma cells seen, sent for cytometry still has the rash, c/p some mild chest congestion, no chest pain no GI symptoms but appetite is worse than yesterday will send for CT chest and abd/pelvis -- no pneumonia on CT chest, no acute inflammatory or infectious changes on CT abdomen some hepatomegaly and splenomegaly that was already found on US mild adenopathy, non-specific patient with tachycardia all day today, 110-130's on monitor, no chest pain at all had some acute dyspnea in the afternoon but he said it happened when he drank some chocolate milk, coughed a lot discussed possible PE, reviewed CT chest with radiology, although not the test of choice (CTA) it was clear that he did not have any clot in large vessels discussed repeating CTA chest with the patient, he said no more scans still feel that he has low likelihood of PE, tachycardia is more likely due to fever and infectious process platelets stable at 80k, will start on Lovenox 60mg q12 given his large size Review of Systems Review of Systems: All systems reviewed & are unremarkable except as noted in Subjective Constitutional: + fever, + body aches, + fatigue and + weakness; no chills and no sweats Respiratory: + cough and + dyspnea (momentarily); no chest congestion, no pain with cough and no sputum production Cardiovascular: no chest pain, no palpitations, no syncope and no edema Gastrointestinal: no abdominal pain, no nausea, no vomiting, no constipation and no diarrhea/loose stools Integumentary: + rash (petechial, maculopapular rash over lower legs) Physical Exam Constitutional: WD/WN, vitals as above comfortable and + overweight; no acute distress Neck: trachea midline, no thyromegaly Respiratory: normal respiratory effort, lungs clear to auscultation Cardiovascular: Rate/Rhythm: regular rhythm and + tachycardic Heart Sounds: normal S1 and normal S2; no murmur Vessels: no JVD Extremities: normal capillary refill; no edema Gastrointestinal (Abdomen): normal bowel sounds, soft, nontender, no hepatosplenomegaly Musculoskeletal: no cyanosis or clubbing, extremities motor strength 5/5 Skin: + rash (maculopapular rash over legs/feet, not raised, some petechiae) Neurologic: patellar DTR's 2+ bilat, sensation intact and PERRL, EOMI, accommodation nl, no face palsy, no dysarthria Psychiatric: A+Ox3, euthymic affect Lymphatic: no cervical or axillary lymphadenopathy Results & Data Results & Data ([facility]) Vital Signs (Past 12 Hours) Vital Signs Temp Pulse Pulse Resp BP Pulse Ox 10/27/20 07:34 37.4 C 118 H 18 105/64 95 10/27/20 07:19 120 H 10/27/20 04:00 37.3 C 122 H 20 152/85 H 97 10/27/20 02:20 37.7 C H 117 H 18 10/26/20 23:59 120 H 10/26/20 23:25 38.1 C H 121 H 20 124/67 94 Laboratory Results Laboratory Results - last 24 hr 10/26/20 10/26/20 10/26/20 16:01 16:01 16:01 WBC 3.92 L RBC 3.48 L Hgb 11.4 L Hct 32.8 L MCV 94.3 MCH 32.8 MCHC 34.8 RDW Std Deviation 53.3 H RDW Coeff of Mina 15.4 H Plt Count 67 L MPV 10.3 Immature Gran % (Auto) 0.3 Neut % (Auto) 68.8 Lymph % (Auto) 19.9 [place] % (Auto) 7.7 Eos % (Auto) 2.3 Baso % (Auto) 1.0 Neut # (Auto) 2.70 Lymph # (Auto) 0.78 L [place] # (Auto) 0.30 Eos # (Auto) 0.09 Baso # (Auto) 0.04 Immature Gran # (Auto) 0.01 Neutrophils % (Manual) Lymphocytes % (Manual) Monocytes % (Manual) Eosinophils % (Manual) Basophils % (Manual) Myelocytes % (Man) Plasma Cell % (Manual) Neutrophils # (Manual) Total Absolute Neuts Lymphocytes # (Manual) Total Abs Lymphocytes Monocytes # (Manual) Eosinophils # (Manual) Basophils # (Manual) Myelocytes # (Manual) Plasma Cell # (Manual) RBC Morphology Peripher Smr Path Cons ESR 28 H PT 12.7 H INR 1.3 H APTT 29.4 PTT Ratio 1.1 Fibrinogen 312 Fibrin Degrad Products Sodium Potassium Chloride Carbon Dioxide Anion Gap BUN Creatinine Est Cr Clr Drug Dosing Est GFR ( Amer) Est GFR (Non-Af Amer) BUN/Creatinine Ratio Glucose Calcium Iron TIBC Ferritin Total Bilirubin AST ALT Alkaline Phosphatase C-Reactive Protein Total Protein Albumin Globulin Albumin/Globulin Ratio Vitamin B12 Folate Procalcitonin CMV IgM Ab CMV IgG Ab/TORCH EBV Capsid Ag IgG Ab EBV Capsid Ag IgM Ab EBV Nuclear Antigen Ab EBV Antibody Interp Hepatitis A IgM Ab Hep Bs Antigen Hep B Core IgM Ab Hepatitis C Antibody Flow Cytometry Comment Misc Genetic Test 10/26/20 10/26/20 10/26/20 16:01 16:01 16:01 WBC RBC Hgb Hct MCV MCH MCHC RDW Std Deviation RDW Coeff of Mina Plt Count MPV Immature Gran % (Auto) Neut % (Auto) Lymph % (Auto) [place] % (Auto) Eos % (Auto) Baso % (Auto) Neut # (Auto) Lymph # (Auto) [place] # (Auto) Eos # (Auto) Baso # (Auto) Immature Gran # (Auto) Neutrophils % (Manual) Lymphocytes % (Manual) Monocytes % (Manual) Eosinophils % (Manual) Basophils % (Manual) Myelocytes % (Man) Plasma Cell % (Manual) Neutrophils # (Manual) Total Absolute Neuts Lymphocytes # (Manual) Total Abs Lymphocytes Monocytes # (Manual) Eosinophils # (Manual) Basophils # (Manual) Myelocytes # (Manual) Plasma Cell # (Manual) RBC Morphology Peripher Smr Path Cons ESR PT INR APTT PTT Ratio Fibrinogen Fibrin Degrad Products Sodium 133 L Potassium 3.2 L Chloride 103 Carbon Dioxide 21 Anion Gap 9.0 BUN 14 Creatinine 0.76 Est Cr Clr Drug Dosing 198.8 Est GFR ( Amer) 122.4 Est GFR (Non-Af Amer) 105.6 BUN/Creatinine Ratio 18.5 Glucose 108 H Calcium 7.5 L Iron 62 TIBC 215 L Ferritin 356.7 Total Bilirubin 2.8 H AST 62 H ALT 25 Alkaline Phosphatase 66 C-Reactive Protein 9.53 H Total Protein 6.8 Albumin 2.5 L Globulin 4.3 H Albumin/Globulin Ratio 0.6 L Vitamin B12 Folate Procalcitonin 0.63 H CMV IgM Ab Pending CMV IgG Ab/TORCH Pending EBV Capsid Ag IgG Ab EBV Capsid Ag IgM Ab EBV Nuclear Antigen Ab EBV Antibody Interp Hepatitis A IgM Ab Hep Bs Antigen Hep B Core IgM Ab Hepatitis C Antibody Flow Cytometry Comment Misc Genetic Test 10/26/20 10/26/20 10/26/20 16:01 16:01 16:01 WBC RBC Hgb Hct MCV MCH MCHC RDW Std Deviation RDW Coeff of Mina Plt Count MPV Immature Gran % (Auto) Neut % (Auto) Lymph % (Auto) [place] % (Auto) Eos % (Auto) Baso % (Auto) Neut # (Auto) Lymph # (Auto) [place] # (Auto) Eos # (Auto) Baso # (Auto) Immature Gran # (Auto) Neutrophils % (Manual) Lymphocytes % (Manual) Monocytes % (Manual) Eosinophils % (Manual) Basophils % (Manual) Myelocytes % (Man) Plasma Cell % (Manual) Neutrophils # (Manual) Total Absolute Neuts Lymphocytes # (Manual) Total Abs Lymphocytes Monocytes # (Manual) Eosinophils # (Manual) Basophils # (Manual) Myelocytes # (Manual) Plasma Cell # (Manual) RBC Morphology Peripher Smr Path Cons ESR PT INR APTT PTT Ratio Fibrinogen Fibrin Degrad Products Sodium Potassium Chloride Carbon Dioxide Anion Gap BUN Creatinine Est Cr Clr Drug Dosing Est GFR ( Amer) Est GFR (Non-Af Amer) BUN/Creatinine Ratio Glucose Calcium Iron TIBC Ferritin Total Bilirubin AST ALT Alkaline Phosphatase C-Reactive Protein Total Protein Albumin Globulin Albumin/Globulin Ratio Vitamin B12 Folate Procalcitonin CMV IgM Ab CMV IgG Ab/TORCH EBV Capsid Ag IgG Ab Pending EBV Capsid Ag IgM Ab Pending EBV Nuclear Antigen Ab Pending EBV Antibody Interp Pending Hepatitis A IgM Ab Pending Hep Bs Antigen Neg Hep B Core IgM Ab Pending Hepatitis C Antibody Neg Flow Cytometry Comment [facility] Genetic Test 10/26/20 10/26/20 10/26/20 16:01 16:01 16:01 WBC RBC Hgb Hct MCV MCH MCHC RDW Std Deviation RDW Coeff of Mina Plt Count MPV Immature Gran % (Auto) Neut % (Auto) Lymph % (Auto) [place] % (Auto) Eos % (Auto) Baso % (Auto) Neut # (Auto) Lymph # (Auto) [place] # (Auto) Eos # (Auto) Baso # (Auto) Immature Gran # (Auto) Neutrophils % (Manual) Lymphocytes % (Manual) Monocytes % (Manual) Eosinophils % (Manual) Basophils % (Manual) Myelocytes % (Man) Plasma Cell % (Manual) Neutrophils # (Manual) Total Absolute Neuts Lymphocytes # (Manual) Total Abs Lymphocytes Monocytes # (Manual) Eosinophils # (Manual) Basophils # (Manual) Myelocytes # (Manual) Plasma Cell # (Manual) RBC Morphology Peripher Smr Path Cons ESR PT INR APTT PTT Ratio Fibrinogen Fibrin Degrad Products 10-40 H Sodium Potassium Chloride Carbon Dioxide Anion Gap BUN Creatinine Est Cr Clr Drug Dosing Est GFR ( Amer) Est GFR (Non-Af Amer) BUN/Creatinine Ratio Glucose Calcium Iron TIBC Ferritin Total Bilirubin AST ALT Alkaline Phosphatase C-Reactive Protein Total Protein Albumin Globulin Albumin/Globulin Ratio Vitamin B12 595 Folate 11.90 Procalcitonin CMV IgM Ab CMV IgG Ab/TORCH EBV Capsid Ag IgG Ab EBV Capsid Ag IgM Ab EBV Nuclear Antigen Ab EBV Antibody Interp Hepatitis A IgM Ab Hep Bs Antigen Hep B Core IgM Ab Hepatitis C Antibody Flow Cytometry Comment [facility] Genetic Test 10/27/20 10/27/20 10/27/20 07:00 07:00 07:00 WBC 4.42 L RBC 3.64 L Hgb 11.9 L Hct 34.2 L MCV 94.0 MCH 32.7 MCHC 34.8 RDW Std Deviation 54.0 H RDW Coeff of Mina 15.6 H Plt Count 80 L MPV 10.6 H Immature Gran % (Auto) Neut % (Auto) Lymph % (Auto) [place] % (Auto) Eos % (Auto) Baso % (Auto) Neut # (Auto) Lymph # (Auto) [place] # (Auto) Eos # (Auto) Baso # (Auto) Immature Gran # (Auto) Neutrophils % (Manual) 86.7 Lymphocytes % (Manual) 4.4 Monocytes % (Manual) 1.8 Eosinophils % (Manual) 0.9 Basophils % (Manual) 0.9 Myelocytes % (Man) 0.9 Plasma Cell % (Manual) 4.4 Neutrophils # (Manual) 3.83 Total Absolute Neuts 3.83 Lymphocytes # (Manual) 0.19 L Total Abs Lymphocytes 0.39 L Monocytes # (Manual) 0.08 L Eosinophils # (Manual) 0.04 Basophils # (Manual) 0.04 Myelocytes # (Manual) 0.04 H Plasma Cell # (Manual) 0.19 H RBC Morphology Unremarkable Peripher Smr Path Cons ESR PT INR APTT PTT Ratio Fibrinogen Fibrin Degrad Products Sodium 132 L Potassium 3.5 Chloride 103 Carbon Dioxide 20 L Anion Gap 9.0 BUN 16 Creatinine 0.82 Est Cr Clr Drug Dosing 182.7 Est GFR ( Amer) 118.7 Est GFR (Non-Af Amer) 102.4 BUN/Creatinine Ratio 19.1 Glucose 100 H Calcium 7.9 L Iron TIBC Ferritin Total Bilirubin 3.4 H AST 50 H ALT 21 Alkaline Phosphatase 61 C-Reactive Protein Total Protein 6.7 Albumin 2.4 L Globulin 4.3 H Albumin/Globulin Ratio 0.6 L Vitamin B12 Folate Procalcitonin CMV IgM Ab CMV IgG Ab/TORCH EBV Capsid Ag IgG Ab EBV Capsid Ag IgM Ab EBV Nuclear Antigen Ab EBV Antibody Interp Hepatitis A IgM Ab Hep Bs Antigen Hep B Core IgM Ab Hepatitis C Antibody Flow Cytometry Comment Pending [facility] Genetic Test Pending Diagnostic Findings CHEST CT WITH CONTRAST FINDINGS: The central airways are patent. No pneumothorax. No pleural effusions. Mild respiratory motion artifact. No focal lung consolidations to suggest pneumonia. A few bibasilar linear densities suggesting subsegmental atelectasis are scarring. No suspicious lytic or blastic osseous lesions. Please refer the same day abdomen and pelvis CT for further evaluation of the abdominal structures. The spleen appears enlarged and there is an enlarged gastrohepatic lymph node. The heart is borderline enlarged. No pericardial effusion. Normal esophagus. Multiple subcentimeter mediastinal and bilateral hilar lymph nodes do not meet CT criteria for pathologic involvement. There is normal caliber thoracic aorta with no evidence for dissection. The main pulmonary arteries are patent. IMPRESSION: 1. No acute process within the chest. Specifically, no focal lung consolidations to suggest pneumonia. CT abd pelvis IV con only FINDINGS: Lower chest: There are mild basilar atelectatic changes. Liver: The liver appears nodular suggesting underlying cirrhosis. There is rec annulization of the umbilical vein. There are perisplenic varices. Gallbladder: Cholelithiasis Spleen: The spleen is enlarged measuring 20 cm. Pancreas: Unremarkable. Adrenal glands: Unremarkable. Kidneys: There is a 2 mm nonobstructing upper pole right renal calculus. No solid renal masses are visualized. There is a 19 mm left renal cyst. There is no hydronephrosis Bowel: There are no transition zones indicate bowel obstruction. There is no evidence of acute diverticulitis. There are no findings to indicate acute appendicitis. Peritoneum: There is no significant ascites. There is mild thickening of the perirenal fascia. There is minimal mesenteric stranding.. There are small fat- containing umbilical hernias Vasculature: The abdominal aorta is normal in course and caliber. Adenopathy: There are borderline enlarged iliac and common femoral lymph nodes. There are mildly enlarged peripancreatic/portal lymph nodes possibly secondary to underlying hepatocellular disease. Pelvic viscera: The bladder, and pelvic viscera are unremarkable. Skeletal structures: No destructive osseous lesions are seen. IMPRESSION: 1. Hepatic cirrhosis with splenomegaly and varices 2. No evidence of bowel obstruction. No evidence of free air 3. No evidence of acute appendicitis. No evidence of acute diverticulitis 4. Cholelithiasis 5. Nonobstructing right renal calculus 6. Mild adenopathy, a nonspecific finding which could be secondary to hepatocellular disease Medications Administered Current Inpatient Medications Acetaminophen (Acetaminophen 325 Mg Tab) 650 mg PO Q4H PRN PRN Reason: Pain or Fever Stop: 11/25/20 10:15 Last Admin: 10/27/20 08:50 Dose: 650 mg Documented by: Sodium Chloride (Nss 1000ml) 1,000 mls @ 100 mls/hr IV .Q10H BLANCHE Stop: 11/25/20 10:15 Last Infusion: 10/27/20 05:18 Dose: 100 mls/hr Documented by: Doxycycline Hyclate 100 mg/ (Dextrose) 110 mls @ 50 mls/hr IV Q12 BLANCHE Stop: 10/28/20 10:29 Last Admin: 10/27/20 08:41 Dose: 100 mls/hr Documented by: Cefepime HCl 2,000 mg/ Syringe 20 mls @ 5 mls/min IV Q12 BLANCHE; Protocol Stop: 10/29/20 08:59 Last Admin: 10/27/20 08:41 Dose: 5 mls/min Documented by: Ketorolac Tromethamine (Ketorolac Tromethamine 15 Mg/Ml Vial) 15 mg IV Q6H PRN PRN Reason: Pain Stop: 10/31/20 21:06 Last Admin: 10/26/20 22:56 Dose: 15 mg Documented by: Ondansetron HCl (Ondansetron Inj 2 Mg/Ml 2 Ml Vial) 4 mg IV Q6H PRN PRN Reason: Nausea Stop: 11/25/20 10:15 Potassium Chloride (Potassium Chloride Crtab 20 Meq Tabcr) 20 meq PO BID BLANCHE Stop: 11/25/20 20:59 Last Admin: 10/27/20 08:42 Dose: 20 meq Documented by: PG Care Time/CCT Total # of Minutes Spent Total Time Spent: 66 Total Time Spent with Patient: Total time spent is greater than 50% in coordination of care (as documented) at patient's floor/unit and/or counseling patient: two visits with patient, first visit 15 minutes in the morning then 15 minutes with his present reviewed literature on anaplasmosis reviewed labs, imaging, discussed images with radiologist documentation, discussions with nurses Prolonged Care Time Prolonged Care Time: Yes Total Prolonged Care Time: 36 Coding Level of Care Code 99381 Subseq Hosp Care Lvl 3 Diagnoses Anaplasmosis A77.49 Sepsis A41.9 Sepsis acute organ dysfunction status: unspecified Sepsis type: sepsis due to unspecified organism Rash R21 Thrombocytopenia D69.6 Arthralgia M25.50 Cirrhosis K74.60 History of alcohol abuse F10.11 Elevated bilirubin R17 Elevated INR R79.1 Hypokalemia E87.6 Anemia D64.9 Tachycardia R00.0 Additional Codes Prolonged Care Time - Prolonged Care Time: Yes ([id number]) (1) Sepsis Sepsis acute organ dysfunction status: unspecified Sepsis type: sepsis due to unspecified organism Qualified Code(s): A41.9 - Sepsis, unspecified organism
--- NOTE | 2020-10-27 10:45 | CT Scan Report ---
CHEST CT WITH CONTRAST CT DOSE: 3013.33 mGy.cm HISTORY: Fever, sepsis, unclear etiology TECHNIQUE: Multiaxial CT images of the chest were performed following the intravenous administration of contrast. A dose lowering technique was utilized adhering to the principles of ALARA. COMPARISON: None. FINDINGS: The central airways are patent. No pneumothorax. No pleural effusions. Mild respiratory mot ion artifact. No focal lung consolidations to suggest pneumonia. A few bibasilar linear densities sug gesting subsegmental atelectasis are scarring. No suspicious lytic or blastic osseous lesions. Please refer the same day abdomen and pelvis CT for further evaluation of the abdominal structures. The spl een appears enlarged and there is an enlarged gastrohepatic lymph node. The heart is borderline enlar ged. No pericardial effusion. Normal esophagus. Multiple subcentimeter mediastinal and bilateral germán r lymph nodes do not meet CT criteria for pathologic involvement. There is normal caliber thoracic ao rta with no evidence for dissection. The main pulmonary arteries are patent. IMPRESSION: 1. No acute process within the chest. Specifically, no focal lung consolidations to suggest pneumonia . 2. Please refer to the same day abdomen and pelvis CT for further evaluation of the splenomegaly and gastrohepatic lymphadenopathy. ACT 112: Negative or not required by law. Electronically signed by: Blair Willis M.D. 10/27/2020 10:44 AM
--- NOTE | 2020-10-27 10:45 | CT Scan Report ---
CT abd pelvis IV con only CLINICAL HISTORY: Fever, sepsis, unclear etiology COMPARISON STUDY: None. TECHNIQUE: The patient was scanned in a dynamic helical fashion during intravenous administration of 94 cc of Optiray 320 A dose lowering technique was utilized adhering to the principles of ALARA. CT DOSE: FINDINGS: Lower chest: There are mild basilar atelectatic changes. Liver: The liver appears nodular suggesting underlying cirrhosis. There is recannulization of the umb ilical vein. There are perisplenic varices. Gallbladder: Cholelithiasis Spleen: The spleen is enlarged measuring 20 cm. Pancreas: Unremarkable. Adrenal glands: Unremarkable. Kidneys: There is a 2 mm nonobstructing upper pole right renal calculus. No solid renal masses are vi sualized. There is a 19 mm left renal cyst. There is no hydronephrosis Bowel: There are no transition zones indicate bowel obstruction. There is no evidence of acute divert iculitis. There are no findings to indicate acute appendicitis. Peritoneum: There is no significant ascites. There is mild thickening of the perirenal fascia. There is minimal mesenteric stranding.. There are small fat-containing umbilical hernias Vasculature: The abdominal aorta is normal in course and caliber. Adenopathy: There are borderline enlarged iliac and common femoral lymph nodes. There are mildly enla rged peripancreatic/portal lymph nodes possibly secondary to underlying hepatocellular disease. Pelvic viscera: The bladder, and pelvic viscera are unremarkable. Skeletal structures: No destructive osseous lesions are seen. IMPRESSION: 1. Hepatic cirrhosis with splenomegaly and varices 2. No evidence of bowel obstruction. No evidence of free air 3. No evidence of acute appendicitis. No evidence of acute diverticulitis 4. Cholelithiasis 5. Nonobstructing right renal calculus 6. Mild adenopathy, a nonspecific finding which could be secondary to hepatocellular disease ACT 112: Negative or not required by law. Electronically signed by: Claudio Turk M.D. 10/27/2020 10:43 AM
[2020-10-27] MEDS: SODIUM CHLORIDE 0.9% 1000ML 1,000 ML IV SCH ×2 (12:43→17:37)
[2020-10-27] MEDS: ENOXAPARIN INJ 60 MG/0.6 ML SYR SQ SCH (18:25)
[2020-10-27] MEDS: KETOROLAC TROMETHAMINE 15 MG/ML VIAL IV PRN (19:34)
[2020-10-28] MEDS: ENOXAPARIN INJ 60 MG/0.6 ML SYR SQ SCH (05:36)
[2020-10-28 06:28] LABS: Hematocrit (blood only) 33.6 % (42-52); Hemoglobin 11.8 g/dL (14.0-18.0); Mean Corpuscular Hgb Conc 35.1 g/dL (32-36); Mean Corpuscular Volume 93.9 fL (80-100); Mean Platelet Volume 10.3 fL (7.4-10.4); Platelet Count 104 K/uL (130-400); RDW Coefficient of Variation 16.1 % (11.5-14.5); RDW Standard Deviation 55.7 fL (36.4-46.3); Red Blood Count 3.58 M/uL (4.7-6.1); White Blood Count 3.51 K/uL (4.8-10.8)
[2020-10-28 06:58] LABS: Albumin Level 2.2 gm/dl (3.4-5.0); BUN Creatinine Ratio 27.7 (10-20); Calcium 7.7 mg/dl (8.5-10.1); Creatinine Clr Calc Pharmacy 150.6 ml/min; Est GFR (African American) 100.6; Est GFR (Non-African American) 86.8; Potassium 3.8 mmol/L (3.5-5.1)
[2020-10-28 07:01] LABS: Basophils # (auto) 0.02 K/uL (0-0.2); Basophils % (auto) 0.6 %; Dohle Bodies 3+; Eosinophils # (auto) 0.22 K/uL (0-0.5); Eosinophils % (auto) 6.3 %; Giant Platelets 1+; Immature Granulocytes # (auto) 0.01 K/uL (0.00-0.02); Immature Granulocytes % (auto) 0.3 %; Lymphocytes # (auto) 0.79 K/uL (1.2-3.4); Lymphocytes % (auto) 22.5 %; Monocytes # (auto) 0.24 K/uL (0.11-0.59); Monocytes % (auto) 6.8 %; Neutrophils # (auto) 2.23 K/uL (1.4-6.5); Neutrophils % (auto) 63.5 %
[2020-10-28 07:03] LABS: Albumin Globulin Ratio 0.5 (0.9-2); Globulin 4.6 gm/dl (2.5-4.0); Phosphorus 2.6 mg/dl (2.5-4.9); Total Protein 6.8 gm/dl (6.4-8.2)
[2020-10-28 07:04] LABS: INR 1.4 (0.9-1.1); Partial Thromboplastin Ratio 1.4; Partial Thromboplastin Time 35.9 Seconds (21.0-31.0); Prothrombin Time 13.6 Seconds (9.0-12.0)
[2020-10-28 07:19] LABS: D Dimer 23660 ug/L FEU (0-500)
[2020-10-28] MEDS ORDERED: HEPARIN SODIUM/DEXTROSE 25,000 UNITS/500 ML BAG IV SCH (07:30)
[2020-10-28] MEDS ORDERED: OPTIRAY 320 125ml IV ONE (08:15)
[2020-10-28 08:41] LABS: Hepatitis A Antibody IgM NON-REACTIVE (NON-REACTIVE); Hepatitis B Core Antibody IgM NON-REACTIVE (NON-REACTIVE)
--- NOTE | 2020-10-28 08:45 | CT Scan Report ---
CT ANGIOGRAM OF THE CHEST CLINICAL HISTORY: Atypical chest pain and shortness of breath COMPARISON STUDY: Chest CT dated 10/27/2020 TECHNIQUE: Following the IV administration of 120 mL of Optiray-320, CT angiogram of the thorax was p erformed from the thoracic inlet to the lung bases utilizing the pulmonary embolus protocol. Images a re reviewed in the axial, sagittal, and coronal planes. IV contrast was administered without complica tion. MIP imaging was performed. A dose lowering technique was utilized adhering to the principles o f ALARA. CT DOSE: 1148.52 mGy.cm FINDINGS: No pathologically enlarged axillary mediastinal or hilar lymph nodes were visualized. There was no evidence of thoracic aortic dilatation. There is suboptimal pulmonary to opacification and significant respiratory motion artifact. No centra l emboli are visualized. Evaluation of peripheral pulmonary artery branches is nondiagnostic. If ther e is a strong clinical concern over the presence of acute pulmonary embolism, correlation with serial leg ultrasonography would be recommended in follow-up No pleural effusions are visualized. There is marked respiratory motion artifact. There are areas of subsegmental atelectasis. There is no lobar consolidation. There is no pneumothorax. There is a cirrhotic morphology the liver. The spleen appears enlarged. IMPRESSION: 1. Significantly limited study from a technical standpoint 2. No central pulmonary emboli identified. Evaluation of peripheral pulmonary artery branches is nond iagnostic. If there is a strong clinical concern over the presence of acute pulmonary embolism, then correlation with serial leg ultrasonography would be recommended in follow-up 3. Cirrhotic liver morphology with splenomegaly. Mild gastric hepatic ligament lymph node enlargement ACT 112: Negative or not required by law. Electronically signed by: Claudio Turk M.D. 10/28/2020 8:43 AM
[2020-10-28] MEDS: CEFEPIME 2,000 MG in SYRINGE 0 ML IV SCH (08:47)
[2020-10-28] MEDS: DOXYCYCLINE HYCLATE 100 MG in DEXTROSE 5% 100 ML IV SCH (08:47)
[2020-10-28] MEDS: KETOROLAC TROMETHAMINE 15 MG/ML VIAL IV PRN ×2 (09:01→17:08)
--- NOTE | 2020-10-28 09:51 | Hospitalist Progress Note ---
Date of Service October 28, 2020 Assessment & Plan (1) Rash: initially thought it was maculopapular rash from anaplasmosis infection however, rash is getting worse, appears vasculitic, palpable purpura on legs, much worse on hands associated with generalized joint swelling and pain CT chest with no changes in lung parenchyma, no hemoptysis urinalysis on admission negative for blood and RBC, no hematuria will consult dermatology for their opinion on the rash, does he need biopsy? appears to be confined to skin with no other clinical manifestations order LAURA with 12 reference labs, ANCA etc. will repeat UA to check for blood and RBC again INR and PTT elevated, plts 100k, D dimer 19592 discussed with Dr. Carmichael, check UPEP, SPEP, Ig quantitative levels (2) Anaplasmosis: suspected, the peripheral smear did not show this but PCR testing is pen ding he has seen ticks recently, cannot remember getting a bite sudden onset of fever, arthralgias, weakness maculopapular rash with some petechiae leukopenia with left shift, new anemia, new thrombocytopenia mild transaminitis continue Doxycycline 100mg BID await confirmatory PCR testing stop Cefepime that was added two nights ago as it is not treating anything will consult Infectious Disease [facility] for their opinion starting to doubt that this is Anaplasmosis, getting worse despite Doxycycline (3) Tachycardia: sinus tachycardia, 110-130's no chest pain correlates with fever spikes reviewed CT chest, main pulmonary arteries [place] clear [place] [id number], CTA chest was poor quality, no central filling defects, cannot rule out peripheral PE doubt DVT and PE given how bad his rash appears, likely a lot of small vessel clotting will check echocardiogram given his history of alcohol abuse, rule out cardiomyopathy (4) Sepsis: fever at home of 101.3, tachycardia now with fever here of 38.9 most likely etiology seems to be anaplasmosis however, might be fever associated with vasculitis, autoimmune disease? CT chest shows no pneumonia CT abdomen/pelvis shows no infectious or inflammatory changes bland urinalysis Lyme screen negative COVID, influenza negative EBV, CMV, hepatitis panel ordered stop IV fluids, eating and drinking well Tylenol PRN, Toradol IV PRN for joint pain (5) Thrombocytopenia: low at 77k on admission, confirmed that there is no clumping could be multifactorial with splenomegaly suspected from hepatomegaly also, acute reaction to anaplasmosis or vasculitis picture platelets stable at 100k (6) Arthralgia: severe joint pain, given clinical picture would fit with a reactive arthritis ESR is 28, CRP is elevated at 9 could be anaplasmosis but now starting to consider vasculitis picture his pain is better but joints still swollen (7) Cirrhosis: abdominal US with evidence of cirrhosis, suspect this is due to heavy alcohol abuse for 30 years bilirubin is 4, platelets 100k, INR 1.4 hepatitis C negative, hepatitis B Ag negative, hepatitis B Ab pending, hepatitis A Ab pending discussed importance of continued abstinence from alcohol recommend follow up with gastroenterology in clinic, will need to follow LFT, platelets etc. (8) History of alcohol abuse: heavy abuse for 30 years, could drink up to a bottle a day sober for 90 days now encouraged him to remain sober as he cannot damage his liver further (9) Elevated bilirubin: 3.9, he says his urine has been dark for several weeks so might not be an acute rise in bilirubin no obstruction on abdominal US no obstruction on CT abd/pelvis bili is still elevated at 4.0, not improving, mild jaundice (10) Elevated INR: due to cirrhosis? could be DIC? PTT is up slightly but started Lovenox yesterday INR is 1.4, but PTT on repeat is normal, fibrin degradation products slightly high at 10-40 suspect this is due [place] [address] (11) Hypokalemia: resolved (12) Anemia: normocytic, 11.8, it was normal at the beginning of the year, large drop in a few months also has thrombocytopenia, rash that appears like purpura, vasculitis check peripheral smear to look for MAHA - no evidence of such of note, anaplasmosis can cause an acute anemia folate and B12 normal, normal ferritin Admission and Anticipated Discharge Date Admission Date: October 26, 2020 Subjective patient is feeling worse today, vasculitic rash is worse over hands, more tender joints more palpable purpura over lower extremities still with low grade fever, sinus tachycardia 120's at rest, poor appetite, no nausea no dyspnea, no cough, no chest pain, no GI symptoms such as diarrhea/vomiting reviewed labs, WBC 3.5, Hb 11.8, plts 104k, INR 1.4, PTT 35.9, D dimer [id number] obtained CTA chest, poor film, no clot in main vessels but could not accurately interpret peripheral vessels Cr 1.0, BUN up at 28, K 3.8, bili 4.0, albumin low at 2.2 getting worse on Doxycycline, starting to doubt Anaplasmosis, leaning more towa rd vasculitis, autoimmune, malignancy? discussed with Dr. Carmichael, oncology, will get UPEP, SPEP, quantitative immunoglobulins will consult infectious disease for their opinion on whether or not this is infectious, specifically anaplasmosis will consult dermatology for evaluation of rash, perhaps he needs biopsy? Review of Systems Review of Systems: All systems reviewed & are unremarkable except as noted in Subjective Constitutional: + fever, + chills, + sweats, + fatigue, + weakness and + anorexia Respiratory: no cough, no dyspnea and no hemoptysis Cardiovascular: no chest pain, no palpitations, no syncope and no edema Gastrointestinal: no abdominal pain, no nausea, no vomiting, no constipation and no diarrhea/loose stools Genitourinary: no dysuria and no hematuria Musculoskeletal: + joint pain, + stiffness, + myalgia and + muscle weakness Integumentary: + rash (worse in hands and feet today) Physical Exam Constitutional: WD/WN, vitals as above comfortable and + overweight; no acute distress Neck: trachea midline, no thyromegaly Respiratory: normal respiratory effort, lungs clear to auscultation Cardiovascular: Rate/Rhythm: regular rhythm and + tachycardic Heart Sounds: normal S1 and normal S2; no murmur Vessels: no JVD Extremities: normal capillary refill; no edema Gastrointestinal (Abdomen): normal bowel sounds, soft, nontender, no hepatospl enomegaly Musculoskeletal: no cyanosis or clubbing, extremities motor strength 5/5 Skin: + rash (maculopapular rash over legs/feet, hands, developing palpable purpura) and + jaundice (slight) Neurologic: patellar DTR's 2+ bilat, sensation intact and PERRL, EOMI, accommodation nl, no face palsy, no dysarthria Psychiatric: A+Ox3, euthymic affect Lymphatic: no cervical or axillary lymphadenopathy Results & Data Results & Data ([facility]) Vital Signs (Past 12 Hours) Vital Signs Temp Pulse Pulse Resp BP BP Pulse Ox 10/28/20 07:33 124 H 10/28/20 07:02 37 C 129 H 20 96/54 L 94 10/28/20 04:11 36.9 C 124 H 20 133/75 98 10/28/20 02:00 112 H 10/27/20 23:00 37.1 C 112 H 22 101/49 L 94 Laboratory Results Laboratory Results - last 24 hr 10/26/20 10/28/20 10/28/20 16:01 05:59 05:59 WBC 3.51 L RBC 3.58 L Hgb 11.8 L Hct 33.6 L MCV 93.9 MCH 33.0 MCHC 35.1 RDW Std Deviation 55.7 H RDW Coeff of Mina 16.1 H Plt Count 104 L MPV 10.3 Immature Gran % (Auto) 0.3 Neut % (Auto) 63.5 Lymph % (Auto) 22.5 Garfield % (Auto) 6.8 Eos % (Auto) 6.3 Baso % (Auto) 0.6 Neut # (Auto) 2.23 Lymph # (Auto) 0.79 L Garfield # (Auto) 0.24 Eos # (Auto) 0.22 Baso # (Auto) 0.02 Immature Gran # (Auto) 0.01 Dohle Bodies 3+ Giant Platelets 1+ PT 13.6 H INR 1.4 H APTT 35.9 H PTT Ratio 1.4 D-Dimer 36056 H* Sodium Potassium Chloride Carbon Dioxide Anion Gap BUN Creatinine Est Cr Clr Drug Dosing Est GFR ( Amer) Est GFR (Non-Af Amer) BUN/Creatinine Ratio Glucose Calcium Phosphorus Magnesium Total Bilirubin AST ALT Alkaline Phosphatase Total Protein Albumin Globulin Albumin/Globulin Ratio Hepatitis A IgM Ab NON-REACTIVE Hep B Core IgM Ab NON-REACTIVE 10/28/20 05:59 WBC RBC Hgb Hct MCV MCH MCHC RDW Std Deviation RDW Coeff of Mina Plt Count MPV Immature Gran % (Auto) Neut % (Auto) Lymph % (Auto) Garfield % (Auto) Eos % (Auto) Baso % (Auto) Neut # (Auto) Lymph # (Auto) Garfield # (Auto) Eos # (Auto) Baso # (Auto) Immature Gran # (Auto) Dohle Bodies Giant Platelets PT INR APTT PTT Ratio D-Dimer Sodium 131 L Potassium 3.8 Chloride 102 Carbon Dioxide 19 L Anion Gap 10.0 BUN 28 H D Creatinine 1.00 Est Cr Clr Drug Dosing 150.6 Est GFR ( Amer) 100.6 Est GFR (Non-Af Amer) 86.8 BUN/Creatinine Ratio 27.7 H Glucose 107 H Calcium 7.7 L Phosphorus 2.6 Magnesium 2.0 Total Bilirubin 4.0 H AST 43 H ALT 18 Alkaline Phosphatase 52 Total Protein 6.8 Albumin 2.2 L Globulin 4.6 H Albumin/Globulin Ratio 0.5 L Hepatitis A IgM Ab Hep B Core IgM Ab Diagnostic Findings CTA CHEST PE PROTOCOL IMPRESSION: 1. Significantly limited study from a technical standpoint 2. No central pulmonary emboli identified. Evaluation of peripheral pulmonary artery branches is nondiagnostic. If there is a strong clinical concern over the presence of acute pulmonary embolism, then correlation with serial leg ultrasonography would be recommended in follow-up 3. Cirrhotic liver morphology with splenomegaly. Mild gastric hepatic ligament lymph node enlargement Medications Administered Current Inpatient Medications Acetaminophen (Acetaminophen 325 Mg Tab) 650 mg PO Q4H PRN PRN Reason: Pain or Fever Stop: 11/25/20 10:15 Last Admin: 10/27/20 19:34 Dose: 650 mg Documented by: Doxycycline Hyclate 100 mg/ (Dextrose) 110 mls @ 50 mls/hr IV Q12 BLANCHE Stop: 10/28/20 10:29 Last Admin: 10/28/20 08:47 Dose: 50 mls/hr Documented by: Ketorolac Tromethamine (Ketorolac Tromethamine 15 Mg/Ml Vial) 15 mg IV Q6H PRN PRN Reason: Pain Stop: 10/31/20 21:06 Last Admin: 10/28/20 09:01 Dose: 15 mg Documented by: Ondansetron HCl (Ondansetron Inj 2 Mg/Ml 2 Ml Vial) 4 mg IV Q6H PRN PRN Reason: Nausea Stop: 11/25/20 10:15 PG Care Time/CCT Total # of Minutes Spent Total Time Spent: 62 Total Time Spent with Patient: Total time spent is greater than 50% in coordination of care (as documented) at patient's floor/unit and/or counseling patient: 25 minutes spent speaking with multiple specialists (dermatology, oncology, ID) 37 minutes spent combined with patient (two visits), reviewing chart, reviewing literature, developing plan, documentation, speaking with patient's family Prolonged Care Time Prolonged Care Time: Yes Total Prolonged Care Time: 32 Coding Level of Care Code 98655 Subseq Hosp Care Lvl 3 Diagnoses Rash R21 Anaplasmosis A77.49 Tachycardia R00.0 Sepsis A41.9 Sepsis acute organ dysfunction status: unspecified Sepsis type: sepsis due to unspecified organism Thrombocytopenia D69.6 Arthralgia M25.50 Cirrhosis K74.60 History of alcohol abuse F10.11 Elevated bilirubin R17 Elevated INR R79.1 Hypokalemia E87.6 Anemia D64.9 Additional Codes Prolonged Care Time - Prolonged Care Time: Yes ([id number]) (1) Sepsis Sepsis acute organ dysfunction status: unspecified Sepsis type: sepsis due to unspecified organism Qualified Code(s): A41.9 - Sepsis, unspecified organism
[2020-10-28] MEDS: Heparin IV Adult Wt-Based Standard *NO* Bolus Protocol IV SCH ×4 (10:20→15:32)
[2020-10-28 11:06] LABS: Immunoglobulin M 78.7 mg/dl (40-230)
[2020-10-28 12:11] LABS: EBV Nuclear Ag Antibody >600.00 U/mL
--- NOTE | 2020-10-28 12:51 | Dermatology Consultation ---
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 - s/p punch biopsies from the left mid medial thigh x 2 today for further evaluation. Specimen taken for both DIF and H&E. Patient tolerated well. Wash sites daily with mild soap and water, apply vaseline and a bandaid until appointment for suture removal in 10-14 days. - If his biopsies confirm deposition of IgA around vessels, clinical monitoring for development of renal disease in the future will be important. The fact that he has lesions above the waist, history of fever and an elevated ESR are associated with an increased risk of future renal disease development. - If/when infection has been appropriately ruled out, treatment with a taper of systemic steroids would be recommended. Systemic steroids should help immensely with his arthralgias as well as shortening the duration of his skin lesions. This would best be initiated with IV solumedrol while inpatient (dosing at the discretion of the primary MD). I would recommend transition to prednisone 40mg daily at the time of discharge. This can then be tapered by 10mg every 5 days. - Agree with his serologic workup thus far to rule-out any potential contributing factors. Many labs still pending. - I need to see him in follow-up as an outpatient 7 days post-discharge. - Call with questions/concerns. Thank you for the consult. Present on Admission?: Yes History of Present Illness Reason for Consultation: Rash Requesting Physician: Lance Maldonado DO Attending Physician: Lance Maldonado DO History of Present Illness Patient is a 49 y/o male admitted to [facility] on 10/26/2020 with fever, rash and arthralgias. Patient reports that he noticed some red areas on his arms and legs 4 days ago. They seemed to develop rather abruptly. They gradually spread over the past 2 days to involve more areas on the arms, legs and lower trunk. He denies any significant itching, burning or pain. He reports that around the time of onset he started to feel fatigued and felt like he had a fever at home (he did not take his temperature). He also started to notice significant joint aches involving his wrists, elbows, knees and ankles. He felt like his hands became somewhat swollen, and he did notice swelling in the legs, which he has not had in the past. He denies any recent infection or new medications prior to the onset of his symptoms. He does not take any OTC agents. He denies any history of similar symptoms in the past. No associated GI complaints. He was brought to the ER 2 days ago where he has undergone extensive evaluation and infectious workup. His workup to this point has been unremarkable for an infectious etiology. He had initially been started on empiric antibiotics with Cefepime and Doxycycline. There was initially concern for possible tick-borne related illness as an etiology for his symptoms. He denies noticing any recent tick bite, and testing thus far has not supported this. His antibiotic treatment was recently discontinued, and Infectious Disease consultation is pending. 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 He does have a history of alcohol abuse over the past 20+ years. He reports that he has been sober for about the past 60-90 days. Imaging performed upon admission is suggestive of cirrhotic changes of the liver with splenomegaly. No other complaints. Allergies Allergy/AdvReac Type Severity Reaction Status Date / Time No Known Allergies Allergy Unverified 10/26/20 06:48 Home Medications Medication Instructions Recorded Confirmed Type No Known Home Medications 08/27/19 10/26/20 History Patient History Medical History (Updated 10/28/20 @ 12:49 by Angel Vargas MD) Dermatitis, unspecified Hypertension Family History Father Myocardial infarction Hypertension Grandfather Diabetes Social History Smoking Status: Former smoker Years Smoked: 41; Smoking End Date: Smoked for 41 years; Second Hand Exposure: Yes; Do You Dip or Chew Tobacco: Yes; Tobacco Cessation Education Requested by Patient: Yes Hx Alcohol Use: Yes (pt quit using alcohol in past 90 days) Alcohol type: hard liquor Preferred Language: Japanese Communication Ability: Effective Undertaker Helper Required: No Beliefs That Will Affect Care: None Current Living Situation: Spouse Other Information That Helps Us Care for You: No Feels Safe at Home: Yes Safety Concerns: Feels Safe At This Time Assistive Devices: None Review of Systems Constitutional: + fever, + fatigue and + malaise; no chills Eyes: no eye pain and no worsening vision Ear, Nose, Mouth, Throat: no mouth lesions Respiratory: no cough and no dyspnea Cardiovascular: no chest pain Gastrointestinal: no abdominal pain, no nausea, no vomiting, no diarrhea/loose stools and no blood in stools Genitourinary: no dysuria and no hematuria Musculoskeletal: as per Subjective / HPI Integumentary: as per Subjective / HPI Neurologic: no dizziness and no headache(s) Physical Exam Physical Exam: General Appearance: Ill-appearing but in no acute distress Psych: Alert, Oriented and Appropriate Skin Type: 2 Scalp/Hair: No abnormalities noted. Face: No abnormalities noted. Eyelids/Ocular Mucosa: No abnormalities noted. Lips/Teeth/Gums: No abnormalities noted. Neck: No abnormalities noted. Right Lower Extremity: +scattered palpable purpuric macules coalescing into patches on the dorsal foot, magallanes, anterior/medial thigh; +2+ lower extremity edema Left Lower Extremity: +scattered palpable purpuric macules coalescing into patches on the dorsal foot, magallanes, anterior/medial thigh; +2+ lower extremity edema Back: No abnormalities noted. Buttocks/Groin/Genitalia: +scattered fading purpuric macules in bathing-suit distribution of the lateral buttocks/waist/hips Right Upper Extremity: +scattered palpable purpuric macules coalescing into patches on the dorsal hand, forearm Left Upper Extremity: +scattered palpable purpuric macules coalescing into patches on the dorsal hand, forearm Chest/Breast/Axillae: No abnormalities noted. Abdomen: +few scattered fading purpuric macules on the lower abdomen Nails: No abnormalities noted. Other exam notes: No head/neck/axillary lymphadenopathy. Results & Data ([facility]) Vital Signs (Past 12 Hours) Vital Signs Temp Pulse Pulse Resp BP Pulse Ox 10/28/20 11:57 37.3 C 117 H 20 105/82 96 10/28/20 07:33 124 H 10/28/20 07:02 37 C 129 H 20 96/54 L 94 10/28/20 04:11 36.9 C 124 H 20 133/75 98 10/28/20 02:00 112 H Laboratory Results Lab Results 10/26/20 10/26/20 10/26/20 Range/Units 06:54 06:54 06:54 WBC 5.52 (4.8-10.8) K/uL RBC 3.61 L (4.7-6.1) M/uL Hgb 11.8 L (14.0-18.0) g/dL Hct 34.0 L (42-52) % MCV 94.2 (80-100) fL MCH 32.7 (25-34) pg MCHC 34.7 (32-36) g/dL RDW Std Deviation 51.8 H (36.4-46.3) fL RDW Coeff of Mina 15.2 H (11.5-14.5) % Plt Count 77 L (130-400) K/uL MPV 10.5 H (7.4-10.4) fL Immature Gran % (Auto) 0.2 % Neut % (Auto) 73.6 % Lymph % (Auto) 17.0 % Tripp % (Auto) 7.4 % Eos % (Auto) 1.1 % Baso % (Auto) 0.7 % Neut # (Auto) 4.06 (1.4-6.5) K/uL Lymph # (Auto) 0.94 L (1.2-3.4) K/uL Tripp # (Auto) 0.41 (0.11-0.59) K/uL Eos # (Auto) 0.06 (0-0.5) K/uL Baso # (Auto) 0.04 (0-0.2) K/uL Immature Gran # (Auto) 0.01 (0.00-0.02) K/uL Neutrophils % (Manual) % Lymphocytes % (Manual) % Monocytes % (Manual) % Eosinophils % (Manual) % Basophils % (Manual) % Myelocytes % (Man) % Plasma Cell % (Manual) % Neutrophils # (Manual) (1.4-6.5) K/uL Total Absolute Neuts (1.4-6.5) K/uL Lymphocytes # (Manual) (1.2-3.4) K/uL Total Abs Lymphocytes (1.2-3.4) K/uL Monocytes # (Manual) (0.11-0.59) K/uL Eosinophils # (Manual) (0-0.5) K/uL Basophils # (Manual) (0-0.2) K/uL Myelocytes # (Manual) (0-0) K/uL Plasma Cell # (Manual) (0-0) K/uL Dohle Bodies Platelet Estimate Decreased L (Normal) Giant Platelets RBC Morphology Peripher Smr Path Cons ESR (0-14) mm/hr PT 13.1 H (9.0-12.0) Seconds INR 1.3 H (0.9-1.1) APTT 27.9 (21.0-31.0) Seconds PTT Ratio 1.1 Fibrinogen (184-400) mg/dl Fibrin Degrad Products (<10) mcg/ml D-Dimer (0-500) ug/L FEU Sodium 131 L (136-145) mmol/L Potassium 3.2 L (3.5-5.1) mmol/L Chloride 101 (98-107) mmol/L Carbon Dioxide 20 L (21-32) mmol/L Anion Gap 10.0 (3-11) BUN 13 (7-18) mg/dl Creatinine 0.81 (0.6-1.4) mg/dl Est Cr Clr Drug Dosing Not Reportable Est GFR ( Amer) 119.3 Est GFR (Non-Af Amer) 102.9 BUN/Creatinine Ratio 15.9 (10-20) Glucose 103 H (70-99) mg/dl Lactate (0.4-2.0) mmol/L Calcium 8.0 L (8.5-10.1) mg/dl Phosphorus (2.5-4.9) mg/dl Magnesium 2.2 (1.8-2.4) mg/dl Iron (35-175) mcg/dl TIBC (250-450) mcg/dl Ferritin (8-388) ng/ml Total Bilirubin 3.9 H (0.2-1) mg/dl AST 78 H (15-37) U/L ALT 28 (12-78) U/L Alkaline Phosphatase 67 (45-117) U/L C-Reactive Protein (0-0.29) mg/dl Total Protein 7.1 (6.4-8.2) gm/dl Albumin 2.7 L (3.4-5.0) gm/dl Globulin 4.4 H (2.5-4.0) gm/dl Albumin/Globulin Ratio 0.6 L (0.9-2) Vitamin B12 (193-986) pg/ml Folate (>5.38) ng/ml Procalcitonin (0-0.5) ng/ml Urine Color Urine Appearance (Clear) Urine pH (4.5-7.5) Ur Specific Kennard (1.000-1.030) Urine Protein (Negative) Urine Glucose (UA) (Negative) Urine Ketones (Negative) Urine Blood (Negative) Urine Nitrite (Negative) Urine Bilirubin (Negative) Urine Urobilinogen (Negative) Ur Leukocyte Esterase (Negative) Urine WBC (Auto) (0-5) /hpf Urine RBC (Auto) (0-4) /hpf U Hyaline Cast (Auto) (0-5) /lpf U Epithel Cells (Auto) (0-5) /lpf Urine Bacteria (Auto) (Negative) IgG (700-1600) mg/dl IgA (70-400) mg/dl IgM (40-230) mg/dl Anaplasma Smear See Comment Lyme Disease IgG Ab (Negative) Lyme Disease IgM Ab (Negative) COVID-19 Eval Order EBV Capsid Ag IgG Ab U/mL EBV Capsid Ag IgM Ab U/mL EBV Nuclear Antigen Ab U/mL EBV Antibody Interp Hepatitis A IgM Ab (NON-REACTIVE) Hep Bs Antigen (Neg) Hep B Core IgM Ab (NON-REACTIVE) Hepatitis C Antibody (Neg) SARS-CoV-2, RNA, NAAT (NEGATIVE) 10/26/20 10/26/20 10/26/20 Range/Units 06:54 07:22 08:30 WBC (4.8-10.8) K/uL RBC (4.7-6.1) M/uL Hgb (14.0-18.0) g/dL Hct (42-52) % MCV (80-100) fL MCH (25-34) pg MCHC (32-36) g/dL RDW Std Deviation (36.4-46.3) fL RDW Coeff of Mina (11.5-14.5) % Plt Count (130-400) K/uL MPV (7.4-10.4) fL Immature Gran % (Auto) % Neut % (Auto) % Lymph % (Auto) % Tripp % (Auto) % Eos % (Auto) % Baso % (Auto) % Neut # (Auto) (1.4-6.5) K/uL Lymph # (Auto) (1.2-3.4) K/uL Tripp # (Auto) (0.11-0.59) K/uL Eos # (Auto) (0-0.5) K/uL Baso # (Auto) (0-0.2) K/uL Immature Gran # (Auto) (0.00-0.02) K/uL Neutrophils % (Manual) % Lymphocytes % (Manual) % Monocytes % (Manual) % Eosinophils % (Manual) % Basophils % (Manual) % Myelocytes % (Man) % Plasma Cell % (Manual) % Neutrophils # (Manual) (1.4-6.5) K/uL Total Absolute Neuts (1.4-6.5) K/uL Lymphocytes # (Manual) (1.2-3.4) K/uL Total Abs Lymphocytes (1.2-3.4) K/uL Monocytes # (Manual) (0.11-0.59) K/uL Eosinophils # (Manual) (0-0.5) K/uL Basophils # (Manual) (0-0.2) K/uL Myelocytes # (Manual) (0-0) K/uL Plasma Cell # (Manual) (0-0) K/uL Dohle Bodies Platelet Estimate (Normal) Giant Platelets RBC Morphology Peripher Smr Path Cons ESR (0-14) mm/hr PT (9.0-12.0) Seconds INR (0.9-1.1) APTT (21.0-31.0) Seconds PTT Ratio Fibrinogen (184-400) mg/dl Fibrin Degrad Products (<10) mcg/ml D-Dimer (0-500) ug/L FEU Sodium (136-145) mmol/L Potassium (3.5-5.1) mmol/L Chloride (98-107) mmol/L Carbon Dioxide (21-32) mmol/L Anion Gap (3-11) BUN (7-18) mg/dl Creatinine (0.6-1.4) mg/dl Est Cr Clr Drug Dosing Est GFR ( Amer) Est GFR (Non-Af Amer) BUN/Creatinine Ratio (10-20) Glucose (70-99) mg/dl Lactate 2.7 H* (0.4-2.0) mmol/L Calcium (8.5-10.1) mg/dl Phosphorus (2.5-4.9) mg/dl Magnesium (1.8-2.4) mg/dl Iron (35-175) mcg/dl TIBC (250-450) mcg/dl Ferritin (8-388) ng/ml Total Bilirubin (0.2-1) mg/dl AST (15-37) U/L ALT (12-78) U/L Alkaline Phosphatase (45-117) U/L C-Reactive Protein (0-0.29) mg/dl Total Protein (6.4-8.2) gm/dl Albumin (3.4-5.0) gm/dl Globulin (2.5-4.0) gm/dl Albumin/Globulin Ratio (0.9-2) Vitamin B12 (193-986) pg/ml Folate (>5.38) ng/ml Procalcitonin 0.45 (0-0.5) ng/ml Urine Color Urine Appearance (Clear) Urine pH (4.5-7.5) Ur Specific Kennard (1.000-1.030) Urine Protein (Negative) Urine Glucose (UA) (Negative) Urine Ketones (Negative) Urine Blood (Negative) Urine Nitrite (Negative) Urine Bilirubin (Negative) Urine Urobilinogen (Negative) Ur Leukocyte Esterase (Negative) Urine WBC (Auto) (0-5) /hpf Urine RBC (Auto) (0-4) /hpf U Hyaline Cast (Auto) (0-5) /lpf U Epithel Cells (Auto) (0-5) /lpf Urine Bacteria (Auto) (Negative) IgG (700-1600) mg/dl IgA (70-400) mg/dl IgM (40-230) mg/dl Anaplasma Smear Lyme Disease IgG Ab Negative (Negative) Lyme Disease IgM Ab Negative (Negative) COVID[facility]19 [facility] Capsid Ag IgG Ab U/mL EBV Capsid Ag IgM Ab U/mL EBV Nuclear Antigen Ab U/mL EBV Antibody Interp Hepatitis A IgM Ab (NON-REACTIVE) Hep Bs Antigen (Neg) Hep B Core IgM Ab (NON-REACTIVE) Hepatitis C Antibody (Neg) SARS-CoV-2, RNA, NAAT (NEGATIVE) 10/26/20 10/26/20 10/26/20 Range/Units 08:30 09:12 09:40 WBC (4.8-10.8) K/uL RBC (4.7-6.1) M/uL Hgb (14.0-18.0) g/dL Hct (42-52) % MCV (80-100) fL MCH (25-34) pg MCHC (32-36) g/dL RDW Std Deviation (36.4-46.3) fL RDW Coeff of Mina (11.5-14.5) % Plt Count (130-400) K/uL MPV (7.4-10.4) fL Immature Gran % (Auto) % Neut % (Auto) % Lymph % (Auto) % Tripp % (Auto) % Eos % (Auto) % Baso % (Auto) % Neut # (Auto) (1.4-6.5) K/uL Lymph # (Auto) (1.2-3.4) K/uL Tripp # (Auto) (0.11-0.59) K/uL Eos # (Auto) (0-0.5) K/uL Baso # (Auto) (0-0.2) K/uL Immature Gran # (Auto) (0.00-0.02) K/uL Neutrophils % (Manual) % Lymphocytes % (Manual) % Monocytes % (Manual) % Eosinophils % (Manual) % Basophils % (Manual) % Myelocytes % (Man) % Plasma Cell % (Manual) % Neutrophils # (Manual) (1.4-6.5) K/uL Total Absolute Neuts (1.4-6.5) K/uL Lymphocytes # (Manual) (1.2-3.4) K/uL Total Abs Lymphocytes (1.2-3.4) K/uL Monocytes # (Manual) (0.11-0.59) K/uL Eosinophils # (Manual) (0-0.5) K/uL Basophils # (Manual) (0-0.2) K/uL Myelocytes # (Manual) (0-0) K/uL Plasma Cell # (Manual) (0-0) K/uL Dohle Bodies Platelet Estimate (Normal) Giant Platelets RBC Morphology Peripher Smr Path Cons ESR (0-14) mm/hr PT (9.0-12.0) Seconds INR (0.9-1.1) APTT (21.0-31.0) Seconds PTT Ratio Fibrinogen (184-400) mg/dl Fibrin Degrad Products (<10) mcg/ml D-Dimer (0-500) ug/L FEU Sodium (136-145) mmol/L Potassium (3.5-5.1) mmol/L Chloride (98-107) mmol/L Carbon Dioxide (21-32) mmol/L Anion Gap (3-11) BUN (7-18) mg/dl Creatinine (0.6-1.4) mg/dl Est Cr Clr Drug Dosing Est GFR ( Amer) Est GFR (Non-Af Amer) BUN/Creatinine Ratio (10-20) Glucose (70-99) mg/dl Lactate 2.0 (0.4-2.0) mmol/L Calcium (8.5-10.1) mg/dl Phosphorus (2.5-4.9) mg/dl Magnesium (1.8-2.4) mg/dl Iron (35-175) mcg/dl TIBC (250-450) mcg/dl Ferritin (8-388) ng/ml Total Bilirubin (0.2-1) mg/dl AST (15-37) U/L ALT (12-78) U/L Alkaline Phosphatase (45-117) U/L C-Reactive Protein (0-0.29) mg/dl Total Protein (6.4-8.2) gm/dl Albumin (3.4-5.0) gm/dl Globulin (2.5-4.0) gm/dl Albumin/Globulin Ratio (0.9-2) Vitamin B12 (193-986) pg/ml Folate (>5.38) ng/ml Procalcitonin (0-0.5) ng/ml Urine Color Traill Urine Appearance Clear (Clear) Urine pH 5.5 (4.5-7.5) Ur Specific Kennard 1.024 (1.000-1.030) Urine Protein Trace H (Negative) Urine Glucose (UA) Negative (Negative) Urine Ketones Trace H (Negative) Urine Blood Negative (Negative) Urine Nitrite Positive A (Negative) Urine Bilirubin 1+ H (Negative) Urine Urobilinogen Negative (Negative) Ur Leukocyte Esterase 1+ H (Negative) Urine WBC (Auto) 1-5 (0-5) /hpf Urine RBC (Auto) 0-4 (0-4) /hpf U Hyaline Cast (Auto) 5-10 H (0-5) /lpf U Epithel Cells (Auto) 10-20 H (0-5) /lpf Urine Bacteria (Auto) Negative (Negative) IgG (700-1600) mg/dl IgA (70-400) mg/dl IgM (40-230) mg/dl Anaplasma Smear Lyme Disease IgG Ab (Negative) Lyme Disease IgM Ab (Negative) COVID-19 Eval Order EBV Capsid Ag IgG Ab U/mL EBV Capsid Ag IgM Ab U/mL EBV Nuclear Antigen Ab U/mL EBV Antibody Interp Hepatitis A IgM Ab (NON-REACTIVE) Hep Bs Antigen (Neg) Hep B Core IgM Ab (NON-REACTIVE) Hepatitis C Antibody (Neg) SARS-CoV-2, RNA, NAAT NEGATIVE (NEGATIVE) 10/26/20 10/26/20 10/26/20 Range/Units 16:01 16:01 16:01 WBC 3.92 L (4.8-10.8) K/uL RBC 3.48 L (4.7-6.1) M/uL Hgb 11.4 L (14.0-18.0) g/dL Hct 32.8 L (42-52) % MCV 94.3 (80-100) fL MCH 32.8 (25-34) pg MCHC 34.8 (32-36) g/dL RDW Std Deviation 53.3 H (36.4-46.3) fL RDW Coeff of Mina 15.4 H (11.5-14.5) % Plt Count 67 L (130-400) K/uL MPV 10.3 (7.4-10.4) fL Immature Gran % (Auto) 0.3 % Neut % (Auto) 68.8 % Lymph % (Auto) 19.9 % Tripp % (Auto) 7.7 % Eos % (Auto) 2.3 % Baso % (Auto) 1.0 % Neut # (Auto) 2.70 (1.4-6.5) K/uL Lymph # (Auto) 0.78 L (1.2-3.4) K/uL Tripp # (Auto) 0.30 (0.11-0.59) K/uL Eos # (Auto) 0.09 (0-0.5) K/uL Baso # (Auto) 0.04 (0-0.2) K/uL Immature Gran # (Auto) 0.01 (0.00-0.02) K/uL Neutrophils % (Manual) % Lymphocytes % (Manual) % Monocytes % (Manual) % Eosinophils % (Manual) % Basophils % (Manual) % Myelocytes % (Man) % Plasma Cell % (Manual) % Neutrophils # (Manual) (1.4-6.5) K/uL Total Absolute Neuts (1.4-6.5) K/uL Lymphocytes # (Manual) (1.2-3.4) K/uL Total Abs Lymphocytes (1.2-3.4) K/uL Monocytes # (Manual) (0.11-0.59) K/uL Eosinophils # (Manual) (0-0.5) K/uL Basophils # (Manual) (0-0.2) K/uL Myelocytes # (Manual) (0-0) K/uL Plasma Cell # (Manual) (0-0) K/uL Dohle Bodies Platelet Estimate (Normal) Giant Platelets RBC Morphology Peripher Smr Path Cons ESR 28 H (0-14) mm/hr PT 12.7 H (9.0-12.0) Seconds INR 1.3 H (0.9-1.1) APTT 29.4 (21.0-31.0) Seconds PTT Ratio 1.1 Fibrinogen 312 (184-400) mg/dl Fibrin Degrad Products (<10) mcg/ml D-Dimer (0-500) ug/L FEU Sodium (136-145) mmol/L Potassium (3.5-5.1) mmol/L Chloride (98-107) mmol/L Carbon Dioxide (21-32) mmol/L Anion Gap (3-11) BUN (7-18) mg/dl Creatinine (0.6-1.4) mg/dl Est Cr Clr Drug Dosing Est GFR ( Amer) Est GFR (Non-Af Amer) BUN/Creatinine Ratio (10-20) Glucose (70-99) mg/dl Lactate (0.4-2.0) mmol/L Calcium (8.5-10.1) mg/dl Phosphorus (2.5-4.9) mg/dl Magnesium (1.8-2.4) mg/dl Iron (35-175) mcg/dl TIBC (250-450) mcg/dl Ferritin (8-388) ng/ml Total Bilirubin (0.2-1) mg/dl AST (15-37) U/L ALT (12-78) U/L Alkaline Phosphatase (45-117) U/L C-Reactive Protein (0-0.29) mg/dl Total Protein (6.4-8.2) gm/dl Albumin (3.4-5.0) gm/dl Globulin (2.5-4.0) gm/dl Albumin/Globulin Ratio (0.9-2) Vitamin B12 (193-986) pg/ml Folate (>5.38) ng/ml Procalcitonin (0-0.5) ng/ml Urine Color Urine Appearance (Clear) Urine pH (4.5-7.5) Ur Specific Kennard (1.000-1.030) Urine Protein (Negative) Urine Glucose (UA) (Negative) Urine Ketones (Negative) Urine Blood (Negative) Urine Nitrite (Negative) Urine Bilirubin (Negative) Urine Urobilinogen (Negative) Ur Leukocyte Esterase (Negative) Urine WBC (Auto) (0-5) /hpf Urine RBC (Auto) (0-4) /hpf U Hyaline Cast (Auto) (0-5) /lpf U Epithel Cells (Auto) (0-5) /lpf Urine Bacteria (Auto) (Negative) IgG (700-1600) mg/dl IgA (70-400) mg/dl IgM (40-230) mg/dl Anaplasma Smear Lyme Disease IgG Ab (Negative) Lyme Disease IgM Ab (Negative) COVID-19 Eval Order EBV Capsid Ag IgG Ab U/mL EBV Capsid Ag IgM Ab U/mL EBV Nuclear Antigen Ab U/mL EBV Antibody Interp Hepatitis A IgM Ab (NON-REACTIVE) Hep Bs Antigen (Neg) Hep B Core IgM Ab (NON-REACTIVE) Hepatitis C Antibody (Neg) SARS-CoV-2, RNA, NAAT (NEGATIVE) 10/26/20 10/26/20 10/26/20 Range/Units 16:01 16:01 16:01 WBC (4.8-10.8) K/uL RBC (4.7-6.1) M/uL Hgb (14.0-18.0) g/dL Hct (42-52) % MCV (80-100) fL MCH (25-34) pg MCHC (32-36) g/dL RDW Std Deviation (36.4-46.3) fL RDW Coeff of Mina (11.5-14.5) % Plt Count (130-400) K/uL MPV (7.4-10.4) fL Immature Gran % (Auto) % Neut % (Auto) % Lymph % (Auto) % Tripp % (Auto) % Eos % (Auto) % Baso % (Auto) % Neut # (Auto) (1.4-6.5) K/uL Lymph # (Auto) (1.2-3.4) K/uL Tripp # (Auto) (0.11-0.59) K/uL Eos # (Auto) (0-0.5) K/uL Baso # (Auto) (0-0.2) K/uL Immature Gran # (Auto) (0.00-0.02) K/uL Neutrophils % (Manual) % Lymphocytes % (Manual) % Monocytes % (Manual) % Eosinophils % (Manual) % Basophils % (Manual) % Myelocytes % (Man) % Plasma Cell % (Manual) % Neutrophils # (Manual) (1.4-6.5) K/uL Total Absolute Neuts (1.4-6.5) K/uL Lymphocytes # (Manual) (1.2-3.4) K/uL Total Abs Lymphocytes (1.2-3.4) K/uL Monocytes # (Manual) (0.11-0.59) K/uL Eosinophils # (Manual) (0-0.5) K/uL Basophils # (Manual) (0-0.2) K/uL Myelocytes # (Manual) (0-0) K/uL Plasma Cell # (Manual) (0-0) K/uL Dohle Bodies Platelet Estimate (Normal) Giant Platelets RBC Morphology Peripher Smr Path Cons ESR (0-14) mm/hr PT (9.0-12.0) Seconds INR (0.9-1.1) APTT (21.0-31.0) Seconds PTT Ratio Fibrinogen (184-400) mg/dl Fibrin Degrad Products (<10) mcg/ml D-Dimer (0-500) ug/L FEU Sodium 133 L (136-145) mmol/L Potassium 3.2 L (3.5-5.1) mmol/L Chloride 103 (98-107) mmol/L Carbon Dioxide 21 (21-32) mmol/L Anion Gap 9.0 (3-11) BUN 14 (7-18) mg/dl Creatinine 0.76 (0.6-1.4) mg/dl Est Cr Clr Drug Dosing 198.8 Est GFR ( Amer) 122.4 Est GFR (Non-Af Amer) 105.6 BUN/Creatinine Ratio 18.5 (10-20) Glucose 108 H (70-99) mg/dl Lactate (0.4-2.0) mmol/L Calcium 7.5 L (8.5-10.1) mg/dl Phosphorus (2.5-4.9) mg/dl Magnesium (1.8-2.4) mg/dl Iron 62 (35-175) mcg/dl TIBC 215 L (250-450) mcg/dl Ferritin 356.7 (8-388) ng/ml Total Bilirubin 2.8 H (0.2-1) mg/dl AST 62 H (15-37) U/L ALT 25 (12-78) U/L Alkaline Phosphatase 66 (45-117) U/L C-Reactive Protein 9.53 H (0-0.29) mg/dl Total Protein 6.8 (6.4-8.2) gm/dl Albumin 2.5 L (3.4-5.0) gm/dl Globulin 4.3 H (2.5-4.0) gm/dl Albumin/Globulin Ratio 0.6 L (0.9-2) Vitamin B12 (193-986) pg/ml Folate (>5.38) ng/ml Procalcitonin 0.63 H (0-0.5) ng/ml Urine Color Urine Appearance (Clear) Urine pH (4.5-7.5) Ur Specific Kennard (1.000-1.030) Urine Protein (Negative) Urine Glucose (UA) (Negative) Urine Ketones (Negative) Urine Blood (Negative) Urine Nitrite (Negative) Urine Bilirubin (Negative) Urine Urobilinogen (Negative) Ur Leukocyte Esterase (Negative) Urine WBC (Auto) (0-5) /hpf Urine RBC (Auto) (0-4) /hpf U Hyaline Cast (Auto) (0-5) /lpf U Epithel Cells (Auto) (0-5) /lpf Urine Bacteria (Auto) (Negative) IgG (700-1600) mg/dl IgA (70-400) mg/dl IgM (40-230) mg/dl Anaplasma Smear Lyme Disease IgG Ab (Negative) Lyme Disease IgM Ab (Negative) COVID-19 Eval Order EBV Capsid Ag IgG Ab U/mL EBV Capsid Ag IgM Ab U/mL EBV Nuclear Antigen Ab U/mL EBV Antibody Interp Hepatitis A IgM Ab (NON-REACTIVE) Hep Bs Antigen Neg (Neg) Hep B Core IgM Ab (NON-REACTIVE) Hepatitis C Antibody Neg (Neg) SARS-CoV-2, RNA, NAAT (NEGATIVE) 10/26/20 10/26/20 10/26/20 Range/Units 16:01 16:01 16:01 WBC (4.8-10.8) K/uL RBC (4.7-6.1) M/uL Hgb (14.0-18.0) g/dL Hct (42-52) % MCV (80-100) fL MCH (25-34) pg MCHC (32-36) g/dL RDW Std Deviation (36.4-46.3) fL RDW Coeff of Mina (11.5-14.5) % Plt Count (130-400) K/uL MPV (7.4-10.4) fL Immature Gran % (Auto) % Neut % (Auto) % Lymph % (Auto) % Tripp % (Auto) % Eos % (Auto) % Baso % (Auto) % Neut # (Auto) (1.4-6.5) K/uL Lymph # (Auto) (1.2-3.4) K/uL Tripp # (Auto) (0.11-0.59) K/uL Eos # (Auto) (0-0.5) K/uL Baso # (Auto) (0-0.2) K/uL Immature Gran # (Auto) (0.00-0.02) K/uL Neutrophils % (Manual) % Lymphocytes % (Manual) % Monocytes % (Manual) % Eosinophils % (Manual) % Basophils % (Manual) % Myelocytes % (Man) % Plasma Cell % (Manual) % Neutrophils # (Manual) (1.4-6.5) K/uL Total Absolute Neuts (1.4-6.5) K/uL Lymphocytes # (Manual) (1.2-3.4) K/uL Total Abs Lymphocytes (1.2-3.4) K/uL Monocytes # (Manual) (0.11-0.59) K/uL Eosinophils # (Manual) (0-0.5) K/uL Basophils # (Manual) (0-0.2) K/uL Myelocytes # (Manual) (0-0) K/uL Plasma Cell # (Manual) (0-0) K/uL Dohle Bodies Platelet Estimate (Normal) Giant Platelets RBC Morphology Peripher Smr Path Cons ESR (0-14) mm/hr PT (9.0-12.0) Seconds INR (0.9-1.1) APTT (21.0-31.0) Seconds PTT Ratio Fibrinogen (184-400) mg/dl Fibrin Degrad Products (<10) mcg/ml D-Dimer (0-500) ug/L FEU Sodium (136-145) mmol/L Potassium (3.5-5.1) mmol/L Chloride (98-107) mmol/L Carbon Dioxide (21-32) mmol/L Anion Gap (3-11) BUN (7-18) mg/dl Creatinine (0.6-1.4) mg/dl Est Cr Clr Drug Dosing Est GFR ( Amer) Est GFR (Non-Af Amer) BUN/Creatinine Ratio (10-20) Glucose (70-99) mg/dl Lactate (0.4-2.0) mmol/L Calcium (8.5-10.1) mg/dl Phosphorus (2.5-4.9) mg/dl Magnesium (1.8-2.4) mg/dl Iron (35-175) mcg/dl TIBC (250-450) mcg/dl Ferritin (8-388) ng/ml Total Bilirubin (0.2-1) mg/dl AST (15-37) U/L ALT (12-78) U/L Alkaline Phosphatase (45-117) U/L C-Reactive Protein (0-0.29) mg/dl Total Protein (6.4-8.2) gm/dl Albumin (3.4-5.0) gm/dl Globulin (2.5-4.0) gm/dl Albumin/Globulin Ratio (0.9-2) Vitamin B12 595 (193-986) pg/ml Folate 11.90 (>5.38) ng/ml Procalcitonin (0-0.5) ng/ml Urine Color Urine Appearance (Clear) Urine pH (4.5-7.5) Ur Specific Kennard (1.000-1.030) Urine Protein (Negative) Urine Glucose (UA) (Negative) Urine Ketones (Negative) Urine Blood (Negative) Urine Nitrite (Negative) Urine Bilirubin (Negative) Urine Urobilinogen (Negative) Ur Leukocyte Esterase (Negative) Urine WBC (Auto) (0-5) /hpf Urine RBC (Auto) (0-4) /hpf U Hyaline Cast (Auto) (0-5) /lpf U Epithel Cells (Auto) (0-5) /lpf Urine Bacteria (Auto) (Negative) IgG (700-1600) mg/dl IgA (70-400) mg/dl IgM (40-230) mg/dl Anaplasma Smear Lyme Disease IgG Ab (Negative) Lyme Disease IgM Ab (Negative) COVID-19 Eval Order EBV Capsid Ag IgG Ab 450.00 H U/mL EBV Capsid Ag IgM Ab <36.00 U/mL EBV Nuclear Antigen Ab >600.00 H U/mL EBV Antibody Interp SEE NOTE Hepatitis A IgM Ab NON-REACTIVE (NON-REACTIVE) Hep Bs Antigen (Neg) Hep B Core IgM Ab NON-REACTIVE (NON-REACTIVE) Hepatitis C Antibody (Neg) SARS-CoV-2, RNA, NAAT (NEGATIVE) 10/26/20 10/26/20 10/27/20 Range/Units 16:01 16:01 07:00 WBC 4.42 L (4.8-10.8) K/uL RBC 3.64 L (4.7-6.1) M/uL Hgb 11.9 L (14.0-18.0) g/dL Hct 34.2 L (42-52) % MCV 94.0 (80-100) fL MCH 32.7 (25-34) pg MCHC 34.8 (32-36) g/dL RDW Std Deviation 54.0 H (36.4-46.3) fL RDW Coeff of Mina 15.6 H (11.5-14.5) % Plt Count 80 L (130-400) K/uL MPV 10.6 H (7.4-10.4) fL Immature Gran % (Auto) % Neut % (Auto) % Lymph % (Auto) % Tripp % (Auto) % Eos % (Auto) % Baso % (Auto) % Neut # (Auto) (1.4-6.5) K/uL Lymph # (Auto) (1.2-3.4) K/uL Tripp # (Auto) (0.11-0.59) K/uL Eos # (Auto) (0-0.5) K/uL Baso # (Auto) (0-0.2) K/uL Immature Gran # (Auto) (0.00-0.02) K/uL Neutrophils % (Manual) 86.7 % Lymphocytes % (Manual) 4.4 % Monocytes % (Manual) 1.8 % Eosinophils % (Manual) 0.9 % Basophils % (Manual) 0.9 % Myelocytes % (Man) 0.9 % Plasma Cell % (Manual) 4.4 % Neutrophils # (Manual) 3.83 (1.4-6.5) K/uL Total Absolute Neuts 3.83 (1.4-6.5) K/uL Lymphocytes # (Manual) 0.19 L (1.2-3.4) K/uL Total Abs Lymphocytes 0.39 L (1.2-3.4) K/uL Monocytes # (Manual) 0.08 L (0.11-0.59) K/uL Eosinophils # (Manual) 0.04 (0-0.5) K/uL Basophils # (Manual) 0.04 (0-0.2) K/uL Myelocytes # (Manual) 0.04 H (0-0) K/uL Plasma Cell # (Manual) 0.19 H (0-0) K/uL Dohle Bodies Platelet Estimate (Normal) Giant Platelets RBC Morphology Unremarkable Peripher Smr Path Cons ESR (0-14) mm/hr PT (9.0-12.0) Seconds INR (0.9-1.1) APTT (21.0-31.0) Seconds PTT Ratio Fibrinogen (184-400) mg/dl Fibrin Degrad Products 10-40 H (<10) mcg/ml D-Dimer (0-500) ug/L FEU Sodium (136-145) mmol/L Potassium (3.5-5.1) mmol/L Chloride (98-107) mmol/L Carbon Dioxide (21-32) mmol/L Anion Gap (3-11) BUN (7-18) mg/dl Creatinine (0.6-1.4) mg/dl Est Cr Clr Drug Dosing Est GFR ( Amer) Est GFR (Non-Af Amer) BUN/Creatinine Ratio (10-20) Glucose (70-99) mg/dl Lactate (0.4-2.0) mmol/L Calcium (8.5-10.1) mg/dl Phosphorus (2.5-4.9) mg/dl Magnesium (1.8-2.4) mg/dl Iron (35-175) mcg/dl TIBC (250-450) mcg/dl Ferritin (8-388) ng/ml Total Bilirubin (0.2-1) mg/dl AST (15-37) U/L ALT (12-78) U/L Alkaline Phosphatase (45-117) U/L C-Reactive Protein (0-0.29) mg/dl Total Protein (6.4-8.2) gm/dl Albumin (3.4-5.0) gm/dl Globulin (2.5-4.0) gm/dl Albumin/Globulin Ratio (0.9-2) Vitamin B12 (193-986) pg/ml Folate (>5.38) ng/ml Procalcitonin (0-0.5) ng/ml Urine Color Urine Appearance (Clear) Urine pH (4.5-7.5) Ur Specific Kennard (1.000-1.030) Urine Protein (Negative) Urine Glucose (UA) (Negative) Urine Ketones (Negative) Urine Blood (Negative) Urine Nitrite (Negative) Urine Bilirubin (Negative) Urine Urobilinogen (Negative) Ur Leukocyte Esterase (Negative) Urine WBC (Auto) (0-5) /hpf Urine RBC (Auto) (0-4) /hpf U Hyaline Cast (Auto) (0-5) /lpf U Epithel Cells (Auto) (0-5) /lpf Urine Bacteria (Auto) (Negative) IgG (700-1600) mg/dl IgA (70-400) mg/dl IgM (40-230) mg/dl Anaplasma Smear Lyme Disease IgG Ab (Negative) Lyme Disease IgM Ab (Negative) COVID-19 Eval Order EBV Capsid Ag IgG Ab U/mL EBV Capsid Ag IgM Ab U/mL EBV Nuclear Antigen Ab U/mL EBV Antibody Interp Hepatitis A IgM Ab (NON-REACTIVE) Hep Bs Antigen (Neg) Hep B Core IgM Ab (NON-REACTIVE) Hepatitis C Antibody (Neg) SARS-CoV-2, RNA, NAAT (NEGATIVE) 10/27/20 10/28/20 10/28/20 Range/Units 07:00 05:59 05:59 WBC 3.51 L (4.8-10.8) K/uL RBC 3.58 L (4.7-6.1) M/uL Hgb 11.8 L (14.0-18.0) g/dL Hct 33.6 L (42-52) % MCV 93.9 (80-100) fL MCH 33.0 (25-34) pg MCHC 35.1 (32-36) g/dL RDW Std Deviation 55.7 H (36.4-46.3) fL RDW Coeff of Mina 16.1 H (11.5-14.5) % Plt Count 104 L (130-400) K/uL MPV 10.3 (7.4-10.4) fL Immature Gran % (Auto) 0.3 % Neut % (Auto) 63.5 % Lymph % (Auto) 22.5 % Tripp % (Auto) 6.8 % Eos % (Auto) 6.3 % Baso % (Auto) 0.6 % Neut # (Auto) 2.23 (1.4-6.5) K/uL Lymph # (Auto) 0.79 L (1.2-3.4) K/uL Tripp # (Auto) 0.24 (0.11-0.59) K/uL Eos # (Auto) 0.22 (0-0.5) K/uL Baso # (Auto) 0.02 (0-0.2) K/uL Immature Gran # (Auto) 0.01 (0.00-0.02) K/uL Neutrophils % (Manual) % Lymphocytes % (Manual) % Monocytes % (Manual) % Eosinophils % (Manual) % Basophils % (Manual) % Myelocytes % (Man) % Plasma Cell % (Manual) % Neutrophils # (Manual) (1.4-6.5) K/uL Total Absolute Neuts (1.4-6.5) K/uL Lymphocytes # (Manual) (1.2-3.4) K/uL Total Abs Lymphocytes (1.2-3.4) K/uL Monocytes # (Manual) (0.11-0.59) K/uL Eosinophils # (Manual) (0-0.5) K/uL Basophils # (Manual) (0-0.2) K/uL Myelocytes # (Manual) (0-0) K/uL Plasma Cell # (Manual) (0-0) K/uL Dohle Bodies 3+ Platelet Estimate (Normal) Giant Platelets 1+ RBC Morphology Peripher Smr Path Cons ESR (0-14) mm/hr PT 13.6 H (9.0-12.0) Seconds INR 1.4 H (0.9-1.1) APTT 35.9 H (21.0-31.0) Seconds PTT Ratio 1.4 Fibrinogen (184-400) mg/dl Fibrin Degrad Products (<10) mcg/ml D-Dimer 50314 H* (0-500) ug/L FEU Sodium 132 L (136-145) mmol/L Potassium 3.5 (3.5-5.1) mmol/L Chloride 103 (98-107) mmol/L Carbon Dioxide 20 L (21-32) mmol/L Anion Gap 9.0 (3-11) BUN 16 (7-18) mg/dl Creatinine 0.82 (0.6-1.4) mg/dl Est Cr Clr Drug Dosing 182.7 Est GFR ( Amer) 118.7 Est GFR (Non-Af Amer) 102.4 BUN/Creatinine Ratio 19.1 (10-20) Glucose 100 H (70-99) mg/dl Lactate (0.4-2.0) mmol/L Calcium 7.9 L (8.5-10.1) mg/dl Phosphorus (2.5-4.9) mg/dl Magnesium (1.8-2.4) mg/dl Iron (35-175) mcg/dl TIBC (250-450) mcg/dl Ferritin (8-388) ng/ml Total Bilirubin 3.4 H (0.2-1) mg/dl AST 50 H (15-37) U/L ALT 21 (12-78) U/L Alkaline Phosphatase 61 (45-117) U/L C-Reactive Protein (0-0.29) mg/dl Total Protein 6.7 (6.4-8.2) gm/dl Albumin 2.4 L (3.4-5.0) gm/dl Globulin 4.3 H (2.5-4.0) gm/dl Albumin/Globulin Ratio 0.6 L (0.9-2) Vitamin B12 (193-986) pg/ml Folate (>5.38) ng/ml Procalcitonin (0-0.5) ng/ml Urine Color Urine Appearance (Clear) Urine pH (4.5-7.5) Ur Specific Kennard (1.000-1.030) Urine Protein (Negative) Urine Glucose (UA) (Negative) Urine Ketones (Negative) Urine Blood (Negative) Urine Nitrite (Negative) Urine Bilirubin (Negative) Urine Urobilinogen (Negative) Ur Leukocyte Esterase (Negative) Urine WBC (Auto) (0-5) /hpf Urine RBC (Auto) (0-4) /hpf U Hyaline Cast (Auto) (0-5) /lpf U Epithel Cells (Auto) (0-5) /lpf Urine Bacteria (Auto) (Negative) IgG (700-1600) mg/dl IgA (70-400) mg/dl IgM (40-230) mg/dl Anaplasma Smear Lyme Disease IgG Ab (Negative) Lyme Disease IgM Ab (Negative) COVID-19 Eval Order EBV Capsid Ag IgG Ab U/mL EBV Capsid Ag IgM Ab U/mL EBV Nuclear Antigen Ab U/mL EBV Antibody Interp Hepatitis A IgM Ab (NON-REACTIVE) Hep Bs Antigen (Neg) Hep B Core IgM Ab (NON-REACTIVE) Hepatitis C Antibody (Neg) SARS-CoV-2, RNA, NAAT (NEGATIVE) 10/28/20 10/28/20 Range/Units 05:59 09:57 WBC (4.8-10.8) K/uL RBC (4.7-6.1) M/uL Hgb (14.0-18.0) g/dL Hct (42-52) % MCV (80-100) fL MCH (25-34) pg MCHC (32-36) g/dL RDW Std Deviation (36.4-46.3) fL RDW Coeff of Mina (11.5-14.5) % Plt Count (130-400) K/uL MPV (7.4-10.4) fL Immature Gran % (Auto) % Neut % (Auto) % Lymph % (Auto) % Tripp % (Auto) % Eos % (Auto) % Baso % (Auto) % Neut # (Auto) (1.4-6.5) K/uL Lymph # (Auto) (1.2-3.4) K/uL Tripp # (Auto) (0.11-0.59) K/uL Eos # (Auto) (0-0.5) K/uL Baso # (Auto) (0-0.2) K/uL Immature Gran # (Auto) (0.00-0.02) K/uL Neutrophils % (Manual) % Lymphocytes % (Manual) % Monocytes % (Manual) % Eosinophils % (Manual) % Basophils % (Manual) % Myelocytes % (Man) % Plasma Cell % (Manual) % Neutrophils # (Manual) (1.4-6.5) K/uL Total Absolute Neuts (1.4-6.5) K/uL Lymphocytes # (Manual) (1.2-3.4) K/uL Total Abs Lymphocytes (1.2-3.4) K/uL Monocytes # (Manual) (0.11-0.59) K/uL Eosinophils # (Manual) (0-0.5) K/uL Basophils # (Manual) (0-0.2) K/uL Myelocytes # (Manual) (0-0) K/uL Plasma Cell # (Manual) (0-0) K/uL Dohle Bodies Platelet Estimate (Normal) Giant Platelets RBC Morphology Peripher Smr Path Cons ESR (0-14) mm/hr PT (9.0-12.0) Seconds INR (0.9-1.1) APTT (21.0-31.0) Seconds PTT Ratio Fibrinogen (184-400) mg/dl Fibrin Degrad Products (<10) mcg/ml D-Dimer (0-500) ug/L FEU Sodium 131 L (136-145) mmol/L Potassium 3.8 (3.5-5.1) mmol/L Chloride 102 (98-107) mmol/L Carbon Dioxide 19 L (21-32) mmol/L Anion Gap 10.0 (3-11) BUN 28 H D (7-18) mg/dl Creatinine 1.00 (0.6-1.4) mg/dl Est Cr Clr Drug Dosing 150.6 Est GFR ( Amer) 100.6 Est GFR (Non-Af Amer) 86.8 BUN/Creatinine Ratio 27.7 H (10-20) Glucose 107 H (70-99) mg/dl Lactate (0.4-2.0) mmol/L Calcium 7.7 L (8.5-10.1) mg/dl Phosphorus 2.6 (2.5-4.9) mg/dl Magnesium 2.0 (1.8-2.4) mg/dl Iron (35-175) mcg/dl TIBC (250-450) mcg/dl Ferritin (8-388) ng/ml Total Bilirubin 4.0 H (0.2-1) mg/dl AST 43 H (15-37) U/L ALT 18 (12-78) U/L Alkaline Phosphatase 52 (45-117) U/L C-Reactive Protein (0-0.29) mg/dl Total Protein 6.8 (6.4-8.2) gm/dl Albumin 2.2 L (3.4-5.0) gm/dl Globulin 4.6 H (2.5-4.0) gm/dl Albumin/Globulin Ratio 0.5 L (0.9-2) Vitamin B12 (193-986) pg/ml Folate (>5.38) ng/ml Procalcitonin (0-0.5) ng/ml Urine Color Urine Appearance (Clear) Urine pH (4.5-7.5) Ur Specific Kennard (1.000-1.030) Urine Protein (Negative) Urine Glucose (UA) (Negative) Urine Ketones (Negative) Urine Blood (Negative) Urine Nitrite (Negative) Urine Bilirubin (Negative) Urine Urobilinogen (Negative) Ur Leukocyte Esterase (Negative) Urine WBC (Auto) (0-5) /hpf Urine RBC (Auto) (0-4) /hpf U Hyaline Cast (Auto) (0-5) /lpf U Epithel Cells (Auto) (0-5) /lpf Urine Bacteria (Auto) (Negative) IgG 2240.0 H (700-1600) mg/dl IgA 435.0 H (70-400) mg/dl IgM 78.7 (40-230) mg/dl Anaplasma Smear Lyme Disease IgG Ab (Negative) Lyme Disease IgM Ab (Negative) COVID-19 Eval Order EBV Capsid Ag IgG Ab U/mL EBV Capsid Ag IgM Ab U/mL EBV Nuclear Antigen Ab U/mL EBV Antibody Interp Hepatitis A IgM Ab (NON-REACTIVE) Hep Bs Antigen (Neg) Hep B Core IgM Ab (NON-REACTIVE) Hepatitis C Antibody (Neg) SARS-CoV-2, RNA, NAAT (NEGATIVE) PG Care Time/CCT Total # of Minutes Spent Total Time Spent with Patient: Total time spent is greater than 50% in coordination of care (as documented) at patient's floor/unit and/or counseling patient: Coding Level of Care Code 16693 Inpt Consult Level 3 Diagnoses Dermatitis, unspecified L30.9 CPT Codes Punch Biopsy of 1 Lesion - 14629 ([id number]) Punch Biopsy of Each Additional Lesion - 84946 ([id number]) Dermatology Procedure Derm Punch Biopsy Skin Lesion Number Lesion #1: Procedure performed by: Angel Vargas 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
--- NOTE | 2020-10-28 15:34 | XCELERA ---
[id number]
[2020-10-28] MEDS ORDERED: methylPREDNISolone 50 MG in SYRINGE 0 ML IV ONE (15:45)
[2020-10-28 19:18] LABS: Appearance Urine Clear (Clear); Bacteria Urine Automated Negative (Negative); Blood Urine Negative (Negative); Color Urine Orange; Glucose Urine UA Negative (Negative); Ketones Urine Trace (Negative); Leukocyte Esterase Urine Trace (Negative); Nitrite Urine Positive (Negative); Protein Urine Trace (Negative); RBC Urine Automated 0-4 /hpf (0-4); Specific Gravity Urine > 1.045 (1.000-1.030); Urobilinogen Urine Negative (Negative); pH Urine 5.5 (4.5-7.5)
[2020-10-28 19:28] LABS: Bilirubin Urine 1+ (Negative)
[2020-10-29] MEDS: KETOROLAC TROMETHAMINE 15 MG/ML VIAL IV PRN ×3 (01:24→15:19)
[2020-10-29] MEDS: ACETAMINOPHEN 325 MG TAB PO PRN ×2 (01:24→09:24)
[2020-10-29] MEDS ORDERED: predniSONE 20 MG TAB PO SCH (09:00)
[2020-10-29 10:12] LABS: CMV IgG Antibody >10.00 U/mL; CMV IgM Antibody <30.00 AU/mL
--- NOTE | 2020-10-29 10:36 | Consultation Report ---
DATE OF CONSULTATION: 10/29/2020 HEMATOLOGY CONSULTATION REASON FOR CONSULTATION: Vasculitic rash and possible coagulopathy. HISTORY OF PRESENT ILLNESS: Mr. Hanna is a morbidly obese 49-year-old gentleman who was admitted to [facility] on 10/26 for a subacute-onset maculopapular rash involving his feet, arms, legs, hands, chest and back with most intense rash involving his legs and feet. He also describes developing arthralgias, particularly in his wrists, elbows, knees and ankles. The arthralgias became so severe that he could not ambulate. He has never experienced any symptomatology like this in the past. He also reports low-grade temperature and fatigue, but those have improved as admission to the hospital has progressed. He was found to be tachycardic in the ER and laboratories, specifically peripheral blood counts, were all decreased. This gentleman has a lengthy history of alcohol abuse and underlying alcoholic hepatitis. His coagulation indices are a bit askew, but he has had no bleeding episodes. He has been abstinent for alcohol over the past couple of months. He readily admits his habit consisted of a fifth of hard liquor per day. Dr. Amy An, hematopathologist imparted that she had looked at his peripheral smear and noted circulating plasma cells, which did not appear to be atypical. That said, I have asked the hospitalist to begin a multiple myeloma workup including SPEP and a 24-hour urine UPEP both with immunofixation. PAST MEDICAL HISTORY: Significant for hypertension. MEDICATIONS: He was on no prescription medications. ALLERGIES: No allergies. FAMILY HISTORY: Father from coronary artery disease. Grandfather suffered from diabetes mellitus. SOCIAL HISTORY: The patient is and lives with his spouse. He smoked for 41 years. He also relates pretty significant alcohol history as described in the HPI. REVIEW OF SYSTEMS: CONSTITUTIONAL: Most notably for a disseminated maculopapular rash involving the areas described. HEENT: Negative for headaches, lightheadedness or dizziness. No acute visual or hearing deficits. No sinus symptoms, sore throat or dysphagia. LYMPHATICS: No history of lymphadenopathy or lymphoproliferative disease. CARDIAC: No current angina or palpitations. PULMONARY: Negative for shortness of breath, dyspnea or orthopnea. No cough or hemoptysis. GASTROINTESTINAL: Negative for abdominal pain, nausea, vomiting, diarrhea or constipation, no hematochezia or melena stools. GENITOURINARY: No hematuria, dysuria, or urinary incontinence. PSYCHIATRIC: Negative for anxiety, depression or psychoses. ENDOCRINE: Negative for diabetes or thyroid disease. NEUROLOGIC: Negative for seizure, stroke, or migraine headache. HEMATOLOGIC: Positive for pancytopenia. Positive for mildly abnormal coagulation parameters. PHYSICAL EXAMINATION: GENERAL: Morbidly obese 49-year-old gentleman, awake, alert and appropriate, in no acute distress. VITAL SIGNS: Temperature 36.4, pulse 91, respiratory rate 18, blood pressure 110/64. SKIN: Maculopapular rash again most prominent in his bilateral lower extremities, but encompassing his arms, hands, trunk and a little bit on his face. HEENT: Atraumatic, normocephalic. Eyes: PERRLA, EOMI. Nares patent without rhinorrhea or discharge. Throat is clear. Tongue midline. Mucous membranes are moist. NECK: Bull neck is noted. LYMPHATICS: No cervical or supraclavicular adenopathy. HEART: Regular rate and rhythm. No clicks, rubs, murmurs or gallops. LUNGS: Clear to auscultation bilaterally. ABDOMEN: Obese, soft, nontender, nondistended with no rigidity or guarding. EXTREMITIES: Prominent maculopapular rash. No clubbing, cyanosis or edema otherwise. NEUROLOGICAL: He is awake, alert and oriented. Cranial nerves are grossly intact. No focality noted. LABORATORY DATA: IgG 2240, IgA 435, IgM 78.7. Peripheral blood counts from yesterday; WBC is 3510, hemoglobin 10.8, platelet count 104. PT 13.6 seconds, INR 1.4, PTT 35.9. D-dimer is markedly elevated at 23,660. Sodium 131, potassium 3.8, chloride 102, carbon dioxide 19, BUN 28, creatinine 1, total bilirubin 4.0, albumin 2.2, globulin 4.6. SPEP and 24-hour UPEP with immunofixation pending. RADIOGRAPHIC DATA: CTA of the chest negative for pulmonary emboli. CT scan of the chest negative for active process within the chest, abdomen and pelvis, marked splenomegaly, 20 cm to be precise. Hepatic cirrhosis with varices noted as well. Cholelithiasis. IMPRESSION: 1. 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 2. Mild coagulopathy. 3. Pancytopenia attributable to chronic liver disease/splenomegaly. 4. Suspected anaplasmosis. 5. Arthralgias. 6. Alcoholism. 7. Hypoalbuminemia. PLAN: Jose Hanna is a very pleasant, morbidly obese 49-year-old gentleman who was admitted a couple of days ago with a vasculitic-appearing rash encompassing his entire body. The rash worsened during admission. 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 I have been asked to see Mr. Hanna for several reasons. #1, mildly abnormal coagulation parameters as well as pancytopenia and circulating plasma cells as noted by Dr. An. I have asked the hospitalist to obtain a serum protein electrophoresis and urine protein electrophoresis both with immunofixation to rule out an emerging plasma cell dyscrasia. Very difficult to discern looking at this gentleman's peripheral counts as there are down across the board not surprisingly attributable to moderate splenomegaly/sequestration. His mild coagulopathy may be attributable to vitamin K deficiency and should be administered 10 mg either intravenously or subQ with repeated parameters 24 hours thereafter. I would not mind seeing this gentleman once he is discharged. I suspect the serum protein and urine protein electrophoresis will not be available for review for several days. That said, I agree with current medical management, corticosteroids were restarted by the hospitalist and hopefully, this will result in improvement in this gentleman's rash. I have nothing further to add at this time, but will be production quality analyst over the weekend and available by phone if there are any questions or concerns. Thank you for allowing me to participate in this gentleman's care.
--- NOTE | 2020-10-29 14:51 | Discharge Summary ---
Date of Service October 29, 2020 Admission HPI Per Admitting Provider 49 yo male with a history of alcohol abuse but no other history, presents to the ED this morning with complaint of diffuse rash and severe joint aches. He says that the rash started yesterday around noon, diffuse on feet, legs, arms, hands, chest and back but most intense on his legs and feet. He also noted some swelling in his legs bilaterally. As time went on he developed joint pains in his wrists, elbows, knees, ankles. The pain became very severe last night to the point that he could not even walk, he needed his sons to help him walk to the car. He has never experienced symptoms like this in the past. Two days ago he reports some mild flu like symptoms of malaise, low grade temperature, fatigue but these resolved after 24 hours. He says he normally does not get sick, never goes to the doctor. No one else around him is ill. He did not take Tylenol or ibuprofen because he did not want to harm his kidneys. He presented to the ED with tachycardia but BP preserved, RR normal, no fever and no hypoxia. WBC normal, Hb low at 11, platelets low at 77k. INR up slightly at 1.3, PTT normal. Na low at 131, K 3.2, Cr 0.8 and BUN 13. Lactic acid 2.0, total bili 3.9, AST 78, ALT and Alk phos normal. Urine very dark with no signs of UTI. CXR normal. Blood cultures obtained. COVID negative, Lyme screen negative, anaplasmosis smear normal. He was given NSS bolus and Rocephin IV and Tylenol. Currently he feels a lot better, the joint pains are significantly improved, still has the rash but more prominent in his legs. He is eating and drinking well, looking forward to dinner. He admits to heavy drinking for 30 years, says he stopped drinking 90 days ago. He said it was possible for him to drink a fifth of hard liquor a day. He has never been told he has cirrhosis. His is at the bedside, she confirms that he stopped drinking 90 days ago but was a very heavy drinker prior to that. 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 Discharge Exam Constitutional WD/WN, vitals as above comfortable and + overweight; no acute distress Neck trachea midline, no thyromegaly Respiratory normal respiratory effort, lungs clear to auscultation Cardiovascular RRR, no murmur, no edema Gastrointestinal (Abdomen) normal bowel sounds, soft, nontender, no hepatosplenomegaly Musculoskeletal no cyanosis or clubbing, extremities motor strength 5/5 Skin + rash (maculopapular rash over legs/feet, hands, developing palpable purpura) and + jaundice (slight) Neurologic patellar DTR's 2+ bilat, sensation intact and PERRL, EOMI, accommodation nl, no face palsy, no dysarthria Psychiatric A+Ox3, euthymic affect Lymphatic no cervical or axillary lymphadenopathy Discharge Data Allergies Allergy/AdvReac Type Severity Reaction Status Date / Time No Known Allergies Allergy Unverified 10/26/20 06:48 Consultations 10/26/20 08:20 ED Decision to Admit Stat 10/28/20 09:22 Consult Hematology Routine 10/28/20 09:26 Consult Infectious Diseases Routine 10/28/20 09:31 Consult Dermatology Routine Ordered Studies 10/26/20 11:00 US abdomen complete Stat 10/27/20 09:43 CT abd pelvis IV con only Urgent CT chest diagnostic w con Urgent 10/28/20 07:24 CT angio chest PE protocol Stat Hospital Course (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 - See comment. Comment: Sections show skin with a dermal leukocytoclastic vasculitis characterized by a perivascular infiltrate of neutrophils with leukocytoclasis, hemorrhage and fibrin deposition in the blood vessel church. The histologic findings could be compatible with Henoch-Schoenlein purpura/IgA-related vasculitis in the appropriate clinical context. A portion of this specimen was sent for direct immunofluorescence. Correlation with that pending study is recommended. see below under Rash follow up with Dr. Vargas (2) Rash: initially thought it was maculopapular rash from anaplasmosis infection but anaplasmosis ruled out now confirmed to be HSP on biopsy, see above rash appears vasculitic, palpable purpura on legs, much worse on hands associated with generalized joint swelling and pain CT chest with no changes in lung parenchyma, no hemoptysis urinalysis on admission negative for blood and RBC, no hematuria, does have trace protein BUN and Cr consistently stable appreciate consult from Dr. 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 Vargas would like to see him in the office in 7-10 days of note, EBV came back acutely positive, suggesting new infection, unsure if this could be trigger for IgA deposition (3) EBV infection: sent hepatitis and CMV, EBV testing as part of work up for increased LFT, hepatomegaly EBV antibodies came back very high suggesting acute infection unsure if this could trigger HSP? might explain some of the coagulopathy (4) Tachycardia: sinus tachycardia, 110-130's no chest pain reviewed CT chest, main pulmonary arteries are clear [place] [address], CTA chest was poor quality, no central fi lling defects, cannot rule out peripheral PE doubt DVT and PE given how bad his rash appears, likely a lot of small vessel clotting echocardiogram with EF 65%, strong heart, normal valves HR dropped to 90's after first dose of Solu Medrol, has remained stable ever since (5) Thrombocytopenia: low at 77k on admission, confirmed that there is no clumping could be multifactorial with splenomegaly suspected from hepatomegaly also, acute reaction to vasculitis, EBV infection? platelets stable at 100k will follow up with Dr. Carmichael (6) Arthralgia: severe joint pain, given clinical picture would fit with a reactive arthritis or vasculitis ESR is 28, CRP is elevated at 9 anaplasmosis ruled out joint pain immediately better after Solu Medrol 40mg IV continue on Prednisone and can take ibuprofen as needed likely fits with vasculitis could consider rheumatology referral as outpatient (7) Cirrhosis: abdominal US with evidence of cirrhosis, suspect this is due to heavy alcohol abuse for 30 years bilirubin is 4, platelets 100k, INR 1.4 hepatitis C negative, hepatitis B Ag negative discussed importance of continued abstinence from alcohol recommend follow up with gastroenterology in clinic, will need to follow LFT, platelets etc. (8) Plasma cell disorder: increased number of plasma cells in circulation sent for flow cytometry, SPEP and UPEP sent correlate with EBV infection? will follow up with Dr. Carmichael (9) History of alcohol abuse: heavy abuse for 30 years, could drink up to a bottle a day sober for 90 days now encouraged him to remain sober as he cannot damage his liver further (10) Elevated bilirubin: 3.9, he says his urine has been dark for several weeks so might not be an acute rise in bilirubin no obstruction on abdominal US no obstruction on CT abd/pelvis bili is still elevated at 4.0, not improving, mild jaundice (11) Elevated INR: due to cirrhosis? could be DIC? PTT is up slightly but started Lovenox yesterday INR is 1.4, but PTT on repeat is normal, fibrin degradation products slightly high at 10-40 suspect this is due [place] [address] (12) Anemia: normocytic, 11.8, it was normal at the beginning of the year, large drop in a few months also has thrombocytopenia, rash that appears like purpura, vasculitis check peripheral smear to look for MAHA - no evidence of such of note, anaplasmosis can cause an acute anemia folate and B12 normal, normal ferritin Total Time Total Time Spent Total Time Spent (In Minutes): 45 Total Time Includes: Examination of the Patient, Discharge Planning, Medication Reconciliation, Communication With Other Providers and Other (discussed with his family) Discharge Plan Discharge Items Patient Disposition: Home - Self-Care Reason For Visit: Rash and joint aches Discharge Diagnosis: 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 Condition on Discharge: Good Goals: complete Prednisone taper follow up with dermatology and hematology and new PCP Activity: Resume your previous activity Driving/Machine Use: No limitations Weightbearing: Full weightbearing Non-emergency contact: Primary Care Provider Call non-emergency contact if: you have any medication questions, your symptoms worsen and you have a fever Follow-up/Referrals: Chandan Yoon DO [Physician] - (1-2 months, for cirrhosis, new patient) Lonnie Carmichael DO [Physician] - (DR CARMICHAEL'S OFFICE WILL CALL YOU TO SCHEDULE AN APPOINTMENT IN 2 WEEKS.) Angel Vargas MD [Physician] - 11/30/20 8:00 am (YOUR NAME WAS ALSO ADDED TO THE WAIT LIST FOR ANY CANCELLATIONS.) PCP,NO [Primary Care Provider] - (please refer for new PCP, he is not established, can be seen in 3 weeks) Diet: Regular Addtl Attending Provider Instructions: Medications: - PREDNISONE: take 40mg (4 tablets) daily for 5 days, then drop to 30mg daily for 5 days, then 20mg for 5 days then 10mg for 5 days then stop - IBUPROFEN: can take 600mg every 6 hours for joint pain/aches - TYLENOL: can take 650mg every 6 hours as needed for pain 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 Vargas in 7-10 days is important, he will have skin biopsy results as well as results from serology studies on follow up it says 11/30/20 but please call his office, you are on wait list for any cancellations, Dr. Vargas wants to see you in 7-10 days coagulopathy, low platelets, low red blood cells likely related to vasculitis, however you tested positive for Jeff [place] virus suggesting active infection EBV is the virus that causes mononucleosis, most people get infected by teen age years, no specific treatment for EBV recommend follow up with Dr. Carmichael in 2 weeks to go over results of flow cytometry as well as serum and urine electropheresis platelets are coming up, red blood cells are stable cirrhosis, enlarged liver and spleen evidence of damage from years of heavy drinking you need to remain sober, any further drinking will cause further damage to the liver will make a referral to be seen by gastroenterology but this can wait for 1-2 months, you should be seen anyway for routine screening colonoscopy since you are over 50 Pending Studies at Discharge: Yes Studies:: skin biopsy numerous serology studies for vasculitis work up Stand-Alone Forms: My [employer], Smoking Cessation Medications and DC Order Prescriptions: New prednisone 10 mg tablet 40 mg PO UD 20 Days Qty: 50 RF: 0 No Action No Known Home Medications RF: 0 Discharge Orders: Discharge Order (Routine); Ordered 10/29/20 Ordered By: Lance Maldonado Admission Data Admit Date/Time: 10/26/20 08:51 Attending Provider: Lance Maldonado Admit Provider: Lance Maldonado Primary Care Provider: PCP,NO Other Providers: Lance Maldonado ; Lonnie Carmichael V. ; Arturo Beckman ; Susana Pringle ; Manpreet Greco I. ; Zay King II ; Trista Jaquez ; Emile Louis ; Angel Vargas Other Interventions: Discharge Summary Assessment (RN) Last Done: 10/29/20 15:34 Coding Level of Care Code D/C Day Management >30 mins Diagnoses Henoch-Schonlein purpura D69.0 Rash R21 EBV infection B27.90 Tachycardia R00.0 Thrombocytopenia D69.6 Arthralgia M25.50 Cirrhosis K74.60 Plasma cell disorder D72.9 History of alcohol abuse F10.11 Elevated bilirubin R17 Elevated INR R79.1 Anemia D64.9
[2020-11-01 14:47] LABS: Albumin 2.5 g/dL (3.8-4.8); Alpha 1 Globulin 0.4 g/dL (0.2-0.3); Alpha 2 Globulin 0.5 g/dL (0.5-0.9); Beta-1-Globulin 0.3 g/dL (0.4-0.6); Beta-2-Globulin 0.4 g/dL (0.2-0.5); Gamma Globulin 2.5 g/dL (0.8-1.7); Monoclonal Protein Band 1 DNR g/dL (NONE DETECTED); Monoclonal Protein Band 2 DNR g/dL (NONE DETECTED); Monoclonal Protein Band 3 DNR g/dL (NONE DETECTED); Total Protein 6.6 g/dL (6.1-8.1)
--- NOTE | 2020-11-04 09:13 | Coding Query ---
SEPSIS To promote full compliance with coding requirements relating to patient care, physician participation is requested in all cases of bilingual student tutor uncertainty. Please assist us with the question(s) below: In responding to this query, please exercise your independent professional judgement. The fact that a question is asked does not imply that any particular answer is desired or expected. We appreciate your clarification on this issue. Throughout the medical record, you have clearly documented a localized infection and your patient has clinical evidence of a generalized sepsis or severe sepsis. The term urosepsis is a nonspecific entity and is coded as an UTI. If the patient has sepsis, severe sepsis, from an urinary source or some other source, please clarify in your response below. The medical record reflects the following clinical findings: Patient admitted with rash-dx'd skin biopsy HS vasculitis. Progress notes mention Sepsis. Seeking to clarify if patient was treated for Sepsis during this IP stay. Thanks for your help. [facility] ____ ( )Bacteremia (Nonspecific laboratory finding of bacteria in the blood) Specify Organism ( ) Present on Admission ( ) Not present on admission ( ) Unable to clinically determine ( ) Septicemia (Systemic disease associated with the presence of pathogenic microorganisms in the blood): Specify Organism ( ) Present on Admission ( ) Not present on admission ( ) Unable to clinically determine ( ) Sepsis Specify Organism Specify Associated Condition/Diagnosis ( ) Present on Admission ( ) Not present on admission ( ) Unable to clinically determine ( ) Severe Sepsis (Sepsis associated with acute organ dysfunction) Specify Organism Specify Associated Condition/Diagnosis ( ) Present on Admission ( ) Not present on admission ( ) Unable to clinically determine ( ) Septic Shock (Severe sepsis with acute circulatory failure, unexplained by other causes) ( ) Present on Admission ( ) Not present on admission ( ) Unable to clinically determine ( x) Other, patient has: HS vasculitis, initially thought to have sepsis but SEPSIS RULED OUT MTDD
[2020-11-04 13:42] LABS: ANCA Screen Negative (Negative); Anti Cardiolipin Ab IgG <14 GPL; Anti Cardiolipin Ab IgM <12 MPL; Anti Nuclear Antibody Screen NEGATIVE (NEGATIVE); Anti-Cardiolipin Ab IgA <11 APL; Anti-Centromere Ab <1.0 NEG AI (<1.0 NEG); Anti-SS-A <1.0 NEG AI (<1.0 NEG); Anti-SS-B <1.0 NEG AI (<1.0 NEG); Chromatin Antibody <1.0 NEG AI (<1.0 NEG); Complement C3 20 mg/dL (82-185); DNA ds Crithidia NEGATIVE (NEGATIVE); Microsomal Ab 2 IU/mL (<9); Myeloperoxidase Ab <1.0 AI (<1.0); Proteinase-3 AB 3.7 AI (<1.0); RNP Antibody <1.0 NEG AI (<1.0 NEG); Scleroderma Anti Scl-70 Ab <1.0 NEG AI (<1.0 NEG); Sm Antibody <1.0 NEG AI (<1.0 NEG)
== END 2020-10-29 17:12 | disposition home or self-care (01) | DRG 813 ==
LOC: ED 06:16 → 2N 08:51

== ENCOUNTER 2021-11-25 11:39 | Inpatient (IN) ==
--- NOTE | 2021-11-25 12:29 | Emergency Department Note ---
Impression & Plan MARISCAL (dyspnea on exertion), History of alcohol abuse, Elevated bilirubin, Elevated INR, Cirrhosis ED Provider Note Provider: See Rosas MD DATE OF SERVICE: 11/25/2021 CHIEF COMPLAINT: Swelling, shortness of breath HISTORY OF PRESENT ILLNESS: Patient is a 51-year-old gentleman history of HSP and regular alcohol use presenting today stating that over the past month he has been able to quit drinking alcohol. Over the past week or 2 has been developing some shortness of breath particular with exertion. Not having much shortness of breath at rest. Little bit of a cough but nothing is coming up. No fevers reported. Increased swelling the right greater than left leg as well as some abdominal firmness/swelling reported as well. No abdominal pain reported or chest pain. No fainting reported. Denies hallucinations or significant tremors. Seen at [facility] and referred here. 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 His states that maybe he is a little more yellow than normal. REVIEW OF SYSTEMS: A total of 10 review of systems was obtained and negative except as stated above in the HPI. 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 NECK: Trachea midline. Supple. ENT: Mucous membranes pink and moist. Pharynx without erythema or exudate. LUNGS: Airway patent. No retractions. Breath sounds clear with good air entry bilaterally with slightly diminished bases HEART: Regular rate and rhythm. No chest wall tenderness ABDOMEN: Soft and non-tender, without guarding or rebound some moderate abdomin al distention nontense. SKIN: Acyanotic, warm, dry, without rashes EXTREMITIES: 3+ lower extremity edema right greater than left without significant tenderness. Some mild chronic stasis changes of the right lower extremity. No open wound significantly noted. NEUROLOGICAL: No focal deficits. No aphasia. No facial droop or slurred speech. Normal strength and tone in the extremities. Sensation to gross touch normal. Ambulatory. EK bpm normal sinus rhythm. No PVC or PAC. Normal axis. QTC 501. No ST segment elevation or depression. CONTINUOUS CARDIAC MONITORING: was ordered and showed a heart rate of bpm in Patient's laboratory studies and imaging reviewed. Differential includes Reactive airway disease, pneumonia, pneumothorax, COPD, CHF, infections, cardiac ischemia, pulmonary embolism, musculoskeletal, gastrointestinal, as well as other pathologies. IMPRESSION/MEDICAL DECISION MAKING: Patient with leg swelling regular to the left. No no recent travel and the patient does report some chronicity as he states is worse. Question possible central process such as CHF or hypoalbuminemia from liver dysfunction but will complete venous Dopplers to exclude DVTs here as he is often cramped in a car. Basic blood work and LFTs were sent. D-dimer sent to help lower risk for PE. Chest x-ray and basic labs ordered as well as Covid test. 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 Patient denies active hallucinations or tremors consistent or concerning for alcohol withdrawal. Patient is hypertensive upon arrival here. Chest x-ray radiology with small bilateral pleural effusions faint bilateral airspace opacities. Not having infectious symptoms lower suspicion for infectious etiology. Blood work here with thrombocytopenia, leukopenia, and mild anemia. MCV is elevated. Covid negative. High-sensitivity troponin not elevated. Normal renal function. Borderline hypokalemia 3.4. Albumin low at 2.6 likely partially contributing. Low calcium at 7.8 with an elevated bilirubin of 7. AST 81 ALT 22. D-dimer just over 12,000 we will proceed with CT of the chest as well as CT abdomen pelvis given the elevated bilirubin. This may all be secondary to liver dysfunction from his history of alcohol abuse. The calculated meld score to be 21. BNP not elevated. Ultrasound lower extremities without conclusive evidence of DVT per radiology report. CT reports per radiology as detailed. No PE. Pleural effusions. Cirrhotic findings with some ascites. No concerning findings this time her symptoms that consistent with pancreatitis although lipase pending. Discussed with him the mortality rate associated with this meld score. Feel that initiating some diuresis would be beneficial and we will give some Lasix. Discussed with him further observation here at the hospital with GI consultation. Discussed with him I believe this would be prudent to facilitate good follow-up given his liver dysfunction noted here. He was in agreement with this plan. DIAGNOSIS: Dyspnea on exertion, fluid overload, hypoalbuminemia, elevated INR, elevated bilirubin, liver cirrhosis DISPOSITION: Hospitalist will evaluate Patient was agreeable with this plan. Past Med/Surg History Medical History (Updated 11/25/21 @ 15:51 by See Rosas M.D.) Dermatitis, unspecified Hypertension Sepsis Family History Father Myocardial infarction Hypertension Grandfather Diabetes Social History Smoking Status: Never smoker Years Smoked: 41; Second Hand Exposure: Yes; Hx Alcohol Use: Yes (pt quit using alcohol in past 90 days) Alcohol type: hard liquor Preferred Language: Bolivian Communication Ability: Effective Stewarding Supervisor Required: No Beliefs That Will Affect Care: None Current Living Situation: Spouse Feels Safe at Home: Yes Assistive Devices: Glasses Allergies Allergies Allergy/AdvReac Type Severity Reaction Status Date / Time No Known Allergies Allergy Verified 11/25/21 13:28 Home Meds Home Medications Medication Instructions Recorded Confirmed ascorbic acid (vitamin C) 500 mg 0 mg PO DAILY 11/25/21 11/25/21 tablet (Vitamin C) cholecalciferol (vitamin D3) 25 0 mcg PO DAILY 11/25/21 11/25/21 mcg (1,000 unit) capsule (Vitamin D3) cyanocobalamin (vitamin B-12) 0 mcg PO DAILY 11/25/21 11/25/21 1,000 mcg tablet (Vitamin B-12) multivitamin 1 tab PO DAILY 11/25/21 11/25/21 zinc 50 mg tablet 0 mg PO DAILY 11/25/21 11/25/21 Results & Data (ED) Vital Signs Vital Signs - 24 hr 11/25/21 11:45 11/25/21 12:18 11/25/21 13:33 Temperature 36.3 C L Temperature Source Temporal Artery Scan Pulse Rate 100 H Pulse Rate [Apical] 85 Respiratory Rate 22 21 Respiratory Effort / Characteristics Non-Labored Spontaneous Non-Labored Spontaneous Respiratory Depth Normal Normal Respiratory Pattern Regular Regular Blood Pressure 208/115 H Blood Pressure [Right Arm] 182/88 H Blood Pressure Mean 146 Blood Pressure Mean [Right Arm] 119 Blood Pressure Position Sitting Pulse Oximetry 93 95 Oxygen Delivery Method Room Air Room Air Sepsis Recent Fever Within 48 Hours No Sepsis New/Unexplained Change in Mental Status No Sepsis Action Taken by Nursing No Action Required 11/25/21 13:36 11/25/21 15:04 Temperature Temperature Source Pulse Rate Pulse Rate [Apical] 92 H Respiratory Rate 24 Respiratory Effort / Characteristics Respiratory Depth Respiratory Pattern Blood Pressure Blood Pressure [Right Arm] 188/97 H Blood Pressure Mean Blood Pressure Mean [Right Arm] 127 Blood Pressure Position Pulse Oximetry 96 Oxygen Delivery Method Room Air Room Air Sepsis Recent Fever Within 48 Hours Sepsis New/Unexplained Change in Mental Status Sepsis Action Taken by Nursing Laboratory Data Result diagrams: 11/25/21 13:03 11/25/21 13:03 Lab Results 11/25/21 11/25/21 11/25/21 Range/Units 13:03 13:03 13:03 WBC 3.49 L (4.8-10.8) K/uL RBC 3.41 L (4.7-6.1) M/uL Hgb 11.9 L (14.0-18.0) g/dL Hct 35.5 L (42-52) % MCV 104.1 H (80-100) fL MCH 34.9 H (25-34) pg MCHC 33.5 (32-36) g/dL RDW Std Deviation 62.2 H (36.4-46.3) fL RDW Coeff of Mina 16.5 H (11.5-14.5) % Plt Count 73 L (130-400) K/uL MPV 10.8 H (7.4-10.4) fL Immature Gran % (Auto) 0.3 % Neut % (Auto) 70.5 % Lymph % (Auto) 16.6 % Burt % (Auto) 9.7 % Eos % (Auto) 2.3 % Baso % (Auto) 0.6 % Neut # (Auto) 2.46 (1.4-6.5) K/uL Lymph # (Auto) 0.58 L (1.2-3.4) K/uL Burt # (Auto) 0.34 (0.11-0.59) K/uL Eos # (Auto) 0.08 (0-0.5) K/uL Baso # (Auto) 0.02 (0-0.2) K/uL Immature Gran # (Auto) 0.01 (0.00-0.02) K/uL Absolute Nucleated RBC 0.03 H (0-0) K/uL Nucleated RBC % (auto) 0.8 % Platelet Estimate Decreased L (Normal) PT 18.9 H (9.0-12.0) Seconds INR 1.8 H (0.9-1.1) APTT 32.5 H (21.0-31.0) Seconds PTT Ratio 1.2 D-Dimer 95227 H* (0-500) ug/L FEU Sodium (136-145) mmol/L Potassium (3.5-5.1) mmol/L Chloride (98-107) mmol/L Carbon Dioxide (21-32) mmol/L Anion Gap (3-11) BUN (6-23) mg/dl Creatinine (0.6-1.4) mg/dl Est Cr Clr Drug Dosing ml/min Est GFR ( Amer) ml/min Est GFR (Non-Af Amer) ml/min BUN/Creatinine Ratio (10-20) Glucose (70-99(Fasting)) mg/dl Calcium (8.5-10.1) mg/dl Magnesium (1.7-2.4) mg/dl Total Bilirubin (0.2-1.0) mg/dl AST (13-39) U/L ALT (7-52) U/L Alkaline Phosphatase (34-104) U/L Troponin I High Sens 9.1 (0-20) pg/ml B-Natriuretic Peptide (0-100) pg/ml Total Protein (6.0-8.3) gm/dl Albumin (3.4-5.0) gm/dl Globulin (2.5-4.0) gm/dl Albumin/Globulin Ratio (0.9-2) Urine Color Urine Appearance (Clear) Urine pH (4.5-7.5) Ur Specific [place] (1.000-1.030) Urine Protein (Negative) Urine Glucose (UA) (Negative) Urine Ketones (Negative) Urine Blood (Negative) Urine Nitrite (Negative) Urine Bilirubin (Negative) Urine Urobilinogen (Negative) Ur Leukocyte Esterase (Negative) Urine WBC (Auto) (0-5) /hpf Urine RBC (Auto) (0-4) /hpf U Hyaline Cast (Auto) (0-5) /lpf U Epithel Cells (Auto) (0-5) /lpf Urine Bacteria (Auto) (Negative) SARS-CoV-2, RNA, NAAT (NEGATIVE) 04/15/22 04/15/22 04/15/22 Range/Units 13:03 13:18 13:19 WBC (4.8-10.8) K/uL RBC (4.7-6.1) M/uL Hgb (14.0-18.0) g/dL Hct (42-52) % MCV (80-100) fL MCH (25-34) pg MCHC (32-36) g/dL RDW Std Deviation (36.4-46.3) fL RDW Coeff of Mina (11.5-14.5) % Plt Count (130-400) K/uL MPV (7.4-10.4) fL Immature Gran % (Auto) % Neut % (Auto) % Lymph % (Auto) % Burt % (Auto) % Eos % (Auto) % Baso % (Auto) % Neut # (Auto) (1.4-6.5) K/uL Lymph # (Auto) (1.2-3.4) K/uL Burt # (Auto) (0.11-0.59) K/uL Eos # (Auto) (0-0.5) K/uL Baso # (Auto) (0-0.2) K/uL Immature Gran # (Auto) (0.00-0.02) K/uL Absolute Nucleated RBC (0-0) K/uL Nucleated RBC % (auto) % Platelet Estimate (Normal) PT (9.0-12.0) Seconds INR (0.9-1.1) APTT (21.0-31.0) Seconds PTT Ratio D-Dimer (0-500) ug/L FEU Sodium 136 (136-145) mmol/L Potassium 3.4 L (3.5-5.1) mmol/L Chloride 105 (98-107) mmol/L Carbon Dioxide 26 (21-32) mmol/L Anion Gap 5 (3-11) BUN 9 (6-23) mg/dl Creatinine 0.56 L (0.6-1.4) mg/dl Est Cr Clr Drug Dosing 245.9 ml/min Est GFR ( Amer) 136.9 ml/min Est GFR (Non-Af Amer) 118.1 ml/min BUN/Creatinine Ratio 16.1 (10-20) Glucose 103 H (70-99(Fasting)) mg/dl Calcium 7.8 L (8.5-10.1) mg/dl Magnesium 1.8 (1.7-2.4) mg/dl Total Bilirubin 7.0 H (0.2-1.0) mg/dl AST 81 H (13-39) U/L ALT 22 (7-52) U/L Alkaline Phosphatase 99 (34-104) U/L Troponin I High Sens (0-20) pg/ml B-Natriuretic Peptide 25 (0-100) pg/ml Total Protein 7.4 (6.0-8.3) gm/dl Albumin 2.6 L (3.4-5.0) gm/dl Globulin 4.8 H (2.5-4.0) gm/dl Albumin/Globulin Ratio 0.5 L (0.9-2) Urine Color Urine Appearance (Clear) Urine pH (4.5-7.5) Ur Specific [place] (1.000-1.030) Urine Protein (Negative) Urine Glucose (UA) (Negative) Urine Ketones (Negative) Urine Blood (Negative) Urine Nitrite (Negative) Urine Bilirubin (Negative) Urine Urobilinogen (Negative) Ur Leukocyte Esterase (Negative) Urine WBC (Auto) (0-5) /hpf Urine RBC (Auto) (0-4) /hpf U Hyaline Cast (Auto) (0-5) /lpf U Epithel Cells (Auto) (0-5) /lpf Urine Bacteria (Auto) (Negative) SARS-CoV-2, RNA, NAAT NEGATIVE (NEGATIVE) 11/25/21 Range/Units 15:13 WBC (4.8-10.8) K/uL RBC (4.7-6.1) M/uL Hgb (14.0-18.0) g/dL Hct (42-52) % MCV (80-100) fL MCH (25-34) pg MCHC (32-36) g/dL RDW Std Deviation (36.4-46.3) fL RDW Coeff of Mina (11.5-14.5) % Plt Count (130-400) K/uL MPV (7.4-10.4) fL Immature Gran % (Auto) % Neut % (Auto) % Lymph % (Auto) % Burt % (Auto) % Eos % (Auto) % Baso % (Auto) % Neut # (Auto) (1.4-6.5) K/uL Lymph # (Auto) (1.2-3.4) K/uL Burt # (Auto) (0.11-0.59) K/uL Eos # (Auto) (0-0.5) K/uL Baso # (Auto) (0-0.2) K/uL Immature Gran # (Auto) (0.00-0.02) K/uL Absolute Nucleated RBC (0-0) K/uL Nucleated RBC % (auto) % Platelet Estimate (Normal) PT (9.0-12.0) Seconds INR (0.9-1.1) APTT (21.0-31.0) Seconds PTT Ratio D-Dimer (0-500) ug/L FEU Sodium (136-145) mmol/L Potassium (3.5-5.1) mmol/L Chloride (98-107) mmol/L Carbon Dioxide (21-32) mmol/L Anion Gap (3-11) BUN (6-23) mg/dl Creatinine (0.6-1.4) mg/dl Est Cr Clr Drug Dosing ml/min Est GFR ( Amer) ml/min Est GFR (Non-Af Amer) ml/min BUN/Creatinine Ratio (10-20) Glucose (70-99(Fasting)) mg/dl Calcium (8.5-10.1) mg/dl Magnesium (1.7-2.4) mg/dl Total Bilirubin (0.2-1.0) mg/dl AST (13-39) U/L ALT (7-52) U/L Alkaline Phosphatase (34-104) U/L Troponin I High Sens (0-20) pg/ml B-Natriuretic Peptide (0-100) pg/ml Total Protein (6.0-8.3) gm/dl Albumin (3.4-5.0) gm/dl Globulin (2.5-4.0) gm/dl Albumin/Globulin Ratio (0.9-2) Urine Color Dark Yellow Urine Appearance Clear (Clear) Urine pH 6.5 (4.5-7.5) Ur Specific [place] > 1.045 H (1.000-1.030) Urine Protein Negative (Negative) Urine Glucose (UA) Negative (Negative) Urine Ketones Negative (Negative) Urine Blood Negative (Negative) Urine Nitrite Positive A (Negative) Urine Bilirubin 1+ H (Negative) Urine Urobilinogen Positive H (Negative) Ur Leukocyte Esterase Trace H (Negative) Urine WBC (Auto) 1-5 (0-5) /hpf Urine RBC (Auto) 0-4 (0-4) /hpf U Hyaline Cast (Auto) 1-5 (0-5) /lpf U Epithel Cells (Auto) 5-10 H (0-5) /lpf Urine Bacteria (Auto) Negative (Negative) SARS-CoV-2, RNA, NAAT (NEGATIVE) Administered Medications Discontinued Medications Ioversol (Optiray 320 125ml) 240 ml IV ONCE ONE Stop: 11/25/21 15:02 Last Admin: 11/25/21 15:01 Dose: 240 ml Documented by: [id number] Imaging Data Radiologist's Impression: Chest X-Ray 11/25/21 12:15 XR chest 1V portable CLINICAL HISTORY: Dyspnea TECHNIQUE: Single frontal radiograph of the chest was obtained. Comparison: Comparison is made to chest one view 10/26/2020 FINDINGS: No lines and tubes are seen. The cardiomediastinal silhouette is normal. Bilateral lower lung predominant airspace opacities are seen. Small bilateral pleural effusions are seen. IMPRESSION: 1. Small bilateral pleural effusions, new from prior exam. 2. Faint bilateral airspace opacities may represent atelectasis, pneumonia, and/or aspiration. These are new from prior exam. ACT 112: Negative or not required by law. Electronically signed by: Lance Whiltey M.D. 11/25/2021 1:31 PM Venous Doppler Study 11/25/21 12:24 ULTRASOUND BILATERAL LOWER EXTREMITY VENOUS CLINICAL HISTORY: Lower extremity edema. COMPARISON STUDY: No priors. TECHNIQUE: Real-time, grayscale, and color Doppler sonography of the deep veins of the right and left lower extremity was performed from the inguinal crease to the calf. Compression and augmentation were utilized. FINDINGS: There is no sonographic evidence of deep venous thrombosis identified in the right or left lower extremity. The common femoral, superficial femoral, and popliteal veins are patent and normally compressible bilaterally. The greater saphenous vein and the profunda femoris vein at the junction with the common femoral vein are clear in both legs. The visualized calf veins are patent bilaterally. IMPRESSION: There is no sonographic evidence of deep venous thrombosis identified in the right or left lower extremity. ACT 112: Negative or not required by law. Electronically signed by: Demetrius Whitman M.D. 11/25/2021 2:24 PM Abdomen/Pelvis CT 11/25/21 14:[address] WITH IV CONTRAST HISTORY: Acute shortness of breath with elevated bilirubin swelling, hx etoh, sob, elev bili TECHNIQUE: Multiaxial CT images of the abdomen and pelvis were performed following the IV administration of 240 cc of Optiray, A dose lowering technique was utilized adhering to the principles of ALARA. COMPARISON STUDY: CTA chest of same day, CT abdomen and pelvis 10/27/2020 FINDINGS: Moderate layering pleural effusions with bibasilar consolidation suggestive of compressive atelectasis. Cardiomegaly. No pneumatosis or pneumoperitoneum. The spleen is enlarged measuring up to 21 cm in length. Unremarkable adrenal glands. Mild peripancreatic free fluid. Cholelithiasis without CT evidence of acute cholecystitis or biliary ductal dilation. Cirrhotic morphology of the liver. No hepatic mass identified. 3 mm nonobstructing calculus of the superior pole right kidney. 2.1 cm cyst of the inferior pole left kidney. There is no hydronephrosis or ureteral calculi identified. Urinary bladder wall thickening with partial distention. Pelvic basin phlebolith. No abdominal aortic aneurysm. Abdominal varices. Prominent and mildly enlarged periportal and retroperitoneal lymph nodes redemonstrated with a 1.4 cm periportal lymph node. Left external iliac chain lymph node measures 1.1 cm on image 445. Findings may be secondary to chronic liver disease and appear stable from prior. Periesophageal varices with mild distal esophageal wall thickening. There is no bowel obstruction or bowel wall thickening. Colonic diverticulosis. Small to moderate abdominal pelvic ascites. Mild generalized body wall edema. Degenerative changes of the spine, pelvis and hips. No destructive bone lesions or acute fracture. IMPRESSION: 1. Cirrhotic liver disease with stigmata of portal venous hypertension including splenomegaly with abdominal varices and abdominal pelvic ascites. Moderate pleural effusions with anasarca also noted. 2. Interstitial and peripancreatic edema with trace free fluid is likely secondary to the aforementioned ascites. Correlate with lipase level to exclude superimposed acute pancreatitis. 3. Cholelithiasis without CT evidence of acute cholecystitis. No biliary ductal dilation. 4. Colonic diverticulosis. 5. 3 mm nonobstructing right renal calculus. 6. Additional findings as above. ACT 112: Negative or not required by law. The above report was generated using voice recognition software. It may contain grammatical, syntax or spelling errors. Electronically signed by: Chandler James M.D. 11/25/2021 3:18 PM Chest CTA 11/25/21 14:10 CT angio chest PE protocol CLINICAL HISTORY: PE, elev d dimer, swelling, sob TECHNIQUE: Multidetector row helical CT of the chest was performed with angiographic protocol. Coronal and sagittal reformations were obtained. Coronal and sagittal MIPS were obtained from the axial data set and were submitted for review. Automated dose lowering techniques and/or adjustment according to patient size were utilized for this exam. CT DOSE: 3847.91 mGy.cm Comparison: Comparison is made to CTA chest 10/28/2020 FINDINGS: Lungs and pleura: Bilateral pleural effusions are seen with associated atelectasis. Heart and pericardium: Cardiomegaly is seen with biatrial enlargement. Vessels: Mild atherosclerotic changes in the aorta and coronary arteries. Suboptimal evaluation for pulmonary embolus, however no central, lobar, or segmental embolus is seen. Mediastinum and germán: The 13 mm subcarinal node is unchanged. Additional subcentimeter nodes are noted. There is a 16 mm distal paraesophageal node, more prominent than the prior exam. Chest wall and lower neck: Unremarkable. Abdomen: For findings below the diaphragm, please refer to CT of the abdomen dated the same. Bones: Degenerative changes in the thoracic spine. IMPRESSION: 1. Limited evaluation, no evidence of pulmonary embolism. 2. Bilateral pleural effusions with associated atelectasis. 3. Distal paraesophageal lymph node is increased from prior exam, attention on follow-up is recommended. ACT 112: Negative or not required by law. Electronically signed by: Lance Whitley M.D. 11/25/2021 3:16 PM Discharge Plan Visit Data Chief Complaint: Shortness of Breath/Dyspnea Stated Complaint: SOB,REF BY DOC ED Provider: See Rosas Discharge Problem: MARISCAL (dyspnea on exertion), History of alcohol abuse, Elevated bilirubin, Elevated INR, Cirrhosis Patient Disposition: Being Evaluated by Hospitalist Forms Stand Alone Forms: [place] Prescriptions Prescriptions: No Action multivitamin Tablet 1 tab PO DAILY RF: 0 cyanocobalamin (vitamin B-12) [Vitamin B-12] 1,000 mcg Tablet 0 mcg PO DAILY RF: 0 ascorbic acid (vitamin C) [Vitamin C] 500 mg Tablet 0 mg PO DAILY RF: 0 zinc 50 mg Tablet 0 mg PO DAILY RF: 0 cholecalciferol (vitamin D3) [Vitamin D3] 25 mcg (1,000 unit) Capsule 0 mcg PO DAILY RF: 0 Referrals Referrals: PCP,NO [Physician] -
--- NOTE | 2021-11-25 13:33 | XRay Report ---
XR chest 1V portable CLINICAL HISTORY: Dyspnea TECHNIQUE: Single frontal radiograph of the chest was obtained. Comparison: Comparison is made to chest one view 10/26/2020 FINDINGS: No lines and tubes are seen. The cardiomediastinal silhouette is normal. Bilateral lower lung predomi nant airspace opacities are seen. Small bilateral pleural effusions are seen. IMPRESSION: 1. Small bilateral pleural effusions, new from prior exam. 2. Faint bilateral airspace opacities may represent atelectasis, pneumonia, and/or aspiration. These are new from prior exam. ACT 112: Negative or not required by law. Electronically signed by: Lance Whitley M.D. 11/25/2021 1:31 PM
[2021-11-25 13:42] LABS: Basophils # (auto) 0.02 K/uL (0-0.2); Basophils % (auto) 0.6 %; Eosinophils # (auto) 0.08 K/uL (0-0.5); Eosinophils % (auto) 2.3 %; Hematocrit (blood only) 35.5 % (42-52); Hemoglobin 11.9 g/dL (14.0-18.0); Immature Granulocytes # (auto) 0.01 K/uL (0.00-0.02); Immature Granulocytes % (auto) 0.3 %; Lymphocytes # (auto) 0.58 K/uL (1.2-3.4); Lymphocytes % (auto) 16.6 %; Mean Corpuscular Hemoglobin 34.9 pg (25-34); Mean Corpuscular Hgb Conc 33.5 g/dL (32-36); Mean Corpuscular Volume 104.1 fL (80-100); Mean Platelet Volume 10.8 fL (7.4-10.4); Monocytes # (auto) 0.34 K/uL (0.11-0.59); Monocytes % (auto) 9.7 %; Neutrophils # (auto) 2.46 K/uL (1.4-6.5); Neutrophils % (auto) 70.5 %; Nucleated RBC # (auto) 0.03 K/uL (0-0); Nucleated RBC % (auto) 0.8 %; Platelet Count 73 K/uL (130-400); Platelet Estimate Decreased (Normal); RDW Coefficient of Variation 16.5 % (11.5-14.5); RDW Standard Deviation 62.2 fL (36.4-46.3); Red Blood Count 3.41 M/uL (4.7-6.1); White Blood Count 3.49 K/uL (4.8-10.8)
[2021-11-25 13:51] LABS: INR 1.8 (0.9-1.1); Partial Thromboplastin Ratio 1.2; Partial Thromboplastin Time 32.5 Seconds (21.0-31.0); Prothrombin Time 18.9 Seconds (9.0-12.0)
[2021-11-25 13:54] LABS: Albumin Globulin Ratio 0.5 (0.9-2); Albumin Level 2.6 gm/dl (3.4-5.0); BUN Creatinine Ratio 16.1 (10-20); Calcium 7.8 mg/dl (8.5-10.1); Creatinine Clr Calc Pharmacy 245.9 ml/min; Est GFR (African American) 136.9 ml/min; Est GFR (Non-African American) 118.1 ml/min; Globulin 4.8 gm/dl (2.5-4.0); Magnesium 1.8 mg/dl (1.7-2.4); Potassium 3.4 mmol/L (3.5-5.1); Total Protein 7.4 gm/dl (6.0-8.3)
[2021-11-25 14:03] LABS: D Dimer 12590 ug/L FEU (0-500)
--- NOTE | 2021-11-25 14:26 | Ultrasound Report ---
ULTRASOUND BILATERAL LOWER EXTREMITY VENOUS CLINICAL HISTORY: Lower extremity edema. COMPARISON STUDY: No priors. TECHNIQUE: Real-time, grayscale, and color Doppler sonography of the deep veins of the right and left lower extremity was performed from the inguinal crease to the calf. Compression and augmentation wer e utilized. FINDINGS: There is no sonographic evidence of deep venous thrombosis identified in the right or left lower extremity. The common femoral, superficial femoral, and popliteal veins are patent and normally compressible bilaterally. The greater saphenous vein and the profunda femoris vein at the junction w ith the common femoral vein are clear in both legs. The visualized calf veins are patent bilaterally. IMPRESSION: There is no sonographic evidence of deep venous thrombosis identified in the right or lef t lower extremity. ACT 112: Negative or not required by law. Electronically signed by: Demetrius Whitman M.D. 11/25/2021 2:24 PM
[2021-11-25] MEDS ORDERED: OPTIRAY 320 125ml IV ONE (15:01)
--- NOTE | 2021-11-25 15:19 | CT Scan Report ---
CT angio chest PE protocol CLINICAL HISTORY: PE, elev d dimer, swelling, sob TECHNIQUE: Multidetector row helical CT of the chest was performed with angiographic protocol. Paez l and sagittal reformations were obtained. Coronal and sagittal MIPS were obtained from the axial adam a set and were submitted for review. Automated dose lowering techniques and/or adjustment according to patient size were utilized for this exam. CT DOSE: 3847.91 mGy.cm Comparison: Comparison is made to CTA chest 10/28/2020 FINDINGS: Lungs and pleura: Bilateral pleural effusions are seen with associated atelectasis. Heart and pericardium: Cardiomegaly is seen with biatrial enlargement. Vessels: Mild atherosclerotic changes in the aorta and coronary arteries. Suboptimal evaluation for p ulmonary embolus, however no central, lobar, or segmental embolus is seen. Mediastinum and germán: The 13 mm subcarinal node is unchanged. Additional subcentimeter nodes are note d. There is a 16 mm distal paraesophageal node, more prominent than the prior exam. Chest wall and lower neck: Unremarkable. Abdomen: For findings below the diaphragm, please refer to CT of the abdomen dated the same. Bones: Degenerative changes in the thoracic spine. IMPRESSION: 1. Limited evaluation, no evidence of pulmonary embolism. 2. Bilateral pleural effusions with associated atelectasis. 3. Distal paraesophageal lymph node is increased from prior exam, attention on follow-up is recommen ded. ACT 112: Negative or not required by law. Electronically signed by: Lance Whitley M.D. 11/25/2021 3:16 PM
--- NOTE | 2021-11-25 15:19 | CT Scan Report ---
ABDOMEN AND PELVIS CT WITH IV CONTRAST HISTORY: Acute shortness of breath with elevated bilirubin swelling, hx etoh, sob, elev bili TECHNIQUE: Multiaxial CT images of the abdomen and pelvis were performed following the IV administrat ion of 240 cc of Optiray, A dose lowering technique was utilized adhering to the principles of ALARA . COMPARISON STUDY: CTA chest of same day, CT abdomen and pelvis 10/27/2020 FINDINGS: Moderate layering pleural effusions with bibasilar consolidation suggestive of compressive atelectasis. Cardiomegaly. No pneumatosis or pneumoperitoneum. The spleen is enlarged measuring up to 21 cm in length. Unremarkable adrenal glands. Mild peripancreatic free fluid. Cholelithiasis without CT evidence of acute cholecystitis or biliary ductal dilation. Cirrhotic morphology of the liver. No hepatic mass identified. 3 mm nonobstructing calculus of the superior pole right kidney. 2.1 cm cyst of the inferior pole left kidney. There is no hydronephrosis or ureteral calculi identified. Urinary bladder wall thickening with partial distention. Pelvic basin phlebolith. No abdominal aortic aneury sm. Abdominal varices. Prominent and mildly enlarged periportal and retroperitoneal lymph nodes redem onstrated with a 1.4 cm periportal lymph node. Left external iliac chain lymph node measures 1.1 cm o n image 445. Findings may be secondary to chronic liver disease and appear stable from prior. Periesophageal varices with mild distal esophageal wall thickening. There is no bowel obstruction or bowel wall thickening. Colonic diverticulosis. Small to moderate abdominal pelvic ascites. Mild gener alized body wall edema. Degenerative changes of the spine, pelvis and hips. No destructive bone lesio ns or acute fracture. IMPRESSION: 1. Cirrhotic liver disease with stigmata of portal venous hypertension including splenomegaly with ab dominal varices and abdominal pelvic ascites. Moderate pleural effusions with anasarca also noted. 2. Interstitial and peripancreatic edema with trace free fluid is likely secondary to the aforementio hernando ascites. Correlate with lipase level to exclude superimposed acute pancreatitis. 3. Cholelithiasis without CT evidence of acute cholecystitis. No biliary ductal dilation. 4. Colonic diverticulosis. 5. 3 mm nonobstructing right renal calculus. 6. Additional findings as above. ACT 112: Negative or not required by law. The above report was generated using voice recognition software. It may contain grammatical, syntax o r spelling errors. Electronically signed by: Chandler James M.D. 11/25/2021 3:18 PM
[2021-11-25 15:34] LABS: Appearance Urine Clear (Clear); Bacteria Urine Automated Negative (Negative); Blood Urine Negative (Negative); Color Urine Dark Yellow; Glucose Urine UA Negative (Negative); Ketones Urine Negative (Negative); Leukocyte Esterase Urine Trace (Negative); Nitrite Urine Positive (Negative); Protein Urine Negative (Negative); RBC Urine Automated 0-4 /hpf (0-4); Specific Gravity Urine > 1.045 (1.000-1.030); Urobilinogen Urine Positive (Negative); pH Urine 6.5 (4.5-7.5)
[2021-11-25 15:35] LABS: Bilirubin Urine 1+ (Negative)
--- NOTE | 2021-11-25 15:45 | History & Physical Report ---
Date of Service November 25, 2021 Assessment & Plan (1) MARISCAL (dyspnea on exertion): Plan: Shortness of Breath 2/2 Pleural effusions 2/2 alcoholic cirrhosis - CTA: Limited evaluation, no evidence of pulmonary embolism. Bilateral pleural effusions with associated atelectasis. Distal paraesophageal lymph node is increased from prior exam, attention on follow-up is recommended. CXR: Small bilateral pleural effusions, new. Faint bilateral airspace opacities. -D-dimer 12.5K, previously 23.6K 10/28/20 Venous Dopplers without sonographic evidence of DVT in right or left lower extremity High-sensitivity troponin normal BNP normal Covid RNA negative Last echo 10/28/2020: EF 65-70%. Normal LV SF in size, no regional wall motion abnormalities. Severe concentric LVH. Diuresis as below -EKG pending, nsr on monitor (2) Cirrhosis: Plan: Alcoholic cirrhosis History of severe alcohol abuse, last drink 1 month ago. Did not experience withdrawal symptoms. No history of seizures. On admission bilirubin 7.0, AST 81, ALT 22 -CT-A/P: Cirrhotic liver disease with stigmata of portal venous hypertension including splenomegaly with abdominal varices and abdominal pelvic ascites. Moderate pleural effusions with anasarca also noted. Interstitial and peripancreatic edema with trace free fluid is likely secondary to the aforementioned ascites. Correlate with lipase level to exclude superimposed acute pancreatitis. Cholelithiasis without CT evidence of acute cholecystitis. No biliary ductal dilation. Colonic diverticulosis. 3 mm nonobstructing right renal calculus. Troponin high-sensitivity normal, BNP normal -Lipase pending Creatinine 0.56, potassium 3.4 Meld 21 (19.6%), Madey discriminant function 38.7, child Krishnamurthy class C Albumin 2.6 WBC 3.49, hemoglobin 11.9, platelet 73. INR 1.89 No evidence of GI bleeding, no prior episodes of SBP. Nontender abdomen. - Lasix 40mg in ER, continue - +[place] 50mg daily, can increase to 100 if well tolerated Will require close GI follow-up. Patient with discriminant function over 32, and is a candidate for prednisolone but will need close follow-up within 1 week for efficacy. GI consulted. +para --> fluid analysis. SBP ppx not indicated at this time but may be indicated based on fluid analysis. (3) History of alcohol abuse: Plan: As above (4) Henoch-Schonlein purpura: Plan: No recurrence of rash following treatment last year Plan: Disposition: Med/surg Diet: Sodium restricted VTE PPx: Pt with thrombocytopenia. No active bleeding. Pradau score 1/IMPROVE 0 points, will use SCDs. CODE STATUS: Full code, surrogate decision maker would be his History of Present Illness Primary Care Provider: Cheryl Ortega PA-C Jose is a 51-year-old male with a past medical history of alcohol abuse with cirrhosis, and neck Schoenlein purpura, and EBV who presents to the hospital with shortness of breath and dyspnea and who was found to have worsened cirrhosis, anasarca, pleural effusions, and evidence of progressive cirrhosis with meld 21, child Krishnamurthy class C, Madrey discriminant function 38.7 on admission. +shortness of breath, worsened to the point of not being able to go up a full flight of stairs Having a hard time sleeping in bed, lays on belly or R side but can no longer lay on L side or back No SOB when sitting up at rest Shortness of breath started 2-3 weeks ago, and graudally worsening especially in the last week no fevers, chills, sweats no chest pain, chest pressure, palpitation +swelling in legs bilaterally and in belly, R periodically since admit last year but both in the last few weeks No rash. Skin and eyes have been a little more yellow per . No itching/pruritis No AH/VH, no confusion Greater than 20 years history of alcohol use, up to 1/5 a day at [facility]. Last drink was 1 month ago, no history of seizures or withdrawal symptoms and has not experienced withdrawal with recent cessation of alcohol. Medical History: Reviewed. Denies other the HSP. Denies heart problems. Medications: Reviewed. Vitamins only. Surgical History: Reviewed Allergies: Reviewed Social History: Regular chew tobacco, one tin per 5 days. no cigarettes. EtoH quit 1 month ago. Prior >20years EtoH, up to a fifth per day at [facility]. Did not experience any withdrawal symptoms after stopping alcohol last month. Code Status: Full Code. Surrogate is Eduardo Hanna () #[phone] Allergies Allergy/AdvReac Type Severity Reaction Status Date / Time No Known Allergies Allergy Verified 11/25/21 13:28 Home Medications Medication Instructions Recorded Confirmed Type ascorbic acid (vitamin C) 500 mg 0 mg PO DAILY 11/25/21 11/25/21 History tablet (Vitamin C) cholecalciferol (vitamin D3) 25 0 mcg PO DAILY 11/25/21 11/25/21 History mcg (1,000 unit) capsule (Vitamin D3) cyanocobalamin (vitamin B-12) 0 mcg PO DAILY 11/25/21 11/25/21 History 1,000 mcg tablet (Vitamin B-12) multivitamin 1 tab PO DAILY 11/25/21 11/25/21 History zinc 50 mg tablet 0 mg PO DAILY 11/25/21 11/25/21 History Past Med/Surg History Medical History (Updated 11/25/21 @ 16:34 by Primitivo Gooden MD) Dermatitis, unspecified EBV infection Hypertension Sepsis Family History Father Myocardial infarction Hypertension Grandfather Diabetes Social History Smoking Status: Never smoker Years Smoked: 41; Second Hand Exposure: Yes; Hx Alcohol Use: Yes (pt quit using alcohol in past 90 days) Alcohol type: hard liquor Preferred Language: Sammarinese Communication Ability: Effective [employer] Supervisor Required: No Beliefs That Will Affect Care: None Current Living Situation: Spouse Feels Safe at Home: Yes Assistive Devices: Glasses Review of Systems Review of Systems: All systems reviewed & are unremarkable except as noted in Subjective Physical Exam Physical Exam: General: A&Ox3. NAD. Cooperative. Jaundice is present HEENT: Atraumatic, normocephalic. Mild icterus is present. Extraocular movements intact, no nystagmus, vision and hearing grossly intact Pulm: Diminished in the bases with reduced breath sounds, no wheezes. Symmetrical chest rise. No increase in work of breathing. No respiratory distress on room air. Cardiac: RRR, -mrg. Radial pulses intact and symmetrical. Abdominal: Distended. Fluid wave present. Nontender to palpation. Extremities: Pitting edema through the lower extremities bilaterally, mild pitting edema of the hands bilaterally. Results & Data Results & Data ([facility]) Vital Signs (Past 12 Hours) Vital Signs Temp Pulse Pulse Resp BP BP Pulse Ox 11/25/21 15:04 92 H 24 188/97 H 96 11/25/21 13:33 85 21 182/88 H 95 11/25/21 11:45 36.3 C L 100 H 22 208/115 H 93 PG Care Time/CCT Total # of Minutes Spent Total Time Spent with Patient: Total time spent is greater than 50% in coordination of care (as documented) at patient's floor/unit and/or counseling patient: Coding Level of Care Code 41316 Initial Inpt Care Lvl 2 Diagnoses Cirrhosis K74.60; R18.8 Ascites presence: with ascites Hepatic cirrhosis type: unspecified hepatic cirrhosis History of alcohol abuse F10.11 Henoch-Schonlein purpura D69.0 MARISCAL (dyspnea on exertion) R06.00 (1) Cirrhosis Ascites presence: with ascites Hepatic cirrhosis type: unspecified hepatic cirrhosis Qualified Code(s): K74.60 - Unspecified cirrhosis of liver; R18.8 - Other ascites
[2021-11-25] MEDS ORDERED: FUROSEMIDE 40 MG/4 ML VIAL IV ONE (15:49)
[2021-11-25] MEDS ORDERED: POTASSIUM CHLORIDE CRTAB 20 MEQ TABCR PO STA (18:01)
[2021-11-25] MEDS ORDERED: SPIRONOLACTONE 25 MG TAB PO ONE (20:38)
[2021-11-25] MEDS ORDERED: POLYETHYLENE (MIRALAX) 17 GM PACK PO PRN (20:38)
[2021-11-25] MEDS ORDERED: ONDANSETRON INJ 2 MG/ML 2 ML VIAL IV PRN (20:38)
[2021-11-26 06:45] LABS: Hematocrit (blood only) 32.3 % (42-52); Hemoglobin 10.7 g/dL (14.0-18.0); Mean Corpuscular Hemoglobin 35.3 pg (25-34); Mean Corpuscular Hgb Conc 33.1 g/dL (32-36); Mean Corpuscular Volume 106.6 fL (80-100); RDW Coefficient of Variation 16.7 % (11.5-14.5); Red Blood Count 3.03 M/uL (4.7-6.1); White Blood Count 3.37 K/uL (4.8-10.8)
--- NOTE | 2021-11-26 06:54 | Electrocardiogram Report ---
Test Reason : Blood Pressure : / mmHG Vent. Rate : 089 BPM Atrial Rate : 089 BPM P-R Int : 164 ms QRS Dur : 098 ms QT Int : 412 ms P-R-T Axes : 000 000 025 degrees QTc Int : 501 ms Normal sinus rhythm Prolonged QT Abnormal ECG When compared with ECG of 26-OCT-2020 07:15, Nonspecific T wave abnormality now evident in Anterior leads Confirmed by Collins Solano ([id number]) on 11/26/2021 6:53:55 AM Referred By: Cheryl Ortega Confirmed By:Collins Solano
[2021-11-26 07:04] LABS: Albumin Globulin Ratio 0.5 (0.9-2); Albumin Level 2.3 gm/dl (3.4-5.0); BUN Creatinine Ratio 16.7 (10-20); Bilirubin,Total 6.5 mg/dl (0.2-1.0); Calcium 7.8 mg/dl (8.5-10.1); Creatinine Clr Calc Pharmacy 282.7 ml/min; Est GFR (African American) 138.9 ml/min; Est GFR (Non-African American) 119.9 ml/min; Globulin 4.2 gm/dl (2.5-4.0); Potassium 3.6 mmol/L (3.5-5.1); Total Protein 6.5 gm/dl (6.0-8.3)
[2021-11-26 07:05] LABS: Mean Platelet Volume 9.6 fL (7.4-10.4); Platelet Count 63 K/uL (130-400)
[2021-11-26 07:18] LABS: Basophils # (auto) 0.02 K/uL (0-0.2); Basophils % (auto) 0.6 %; Eosinophils # (auto) 0.12 K/uL (0-0.5); Eosinophils % (auto) 3.6 %; Immature Granulocytes # (auto) 0.01 K/uL (0.00-0.02); Immature Granulocytes % (auto) 0.3 %; Lymphocytes # (auto) 0.72 K/uL (1.2-3.4); Lymphocytes % (auto) 21.4 %; Monocytes # (auto) 0.34 K/uL (0.11-0.59); Monocytes % (auto) 10.1 %; Neutrophils # (auto) 2.16 K/uL (1.4-6.5)
[2021-11-26] MEDS ORDERED: SPIRONOLACTONE 25 MG TAB PO SCH (09:00)
[2021-11-26] MEDS ORDERED: FUROSEMIDE 40 MG/4 ML VIAL IV SCH (09:00)
--- NOTE | 2021-11-26 11:41 | Hospitalist Progress Note ---
Date of Service November 26, 2021 Assessment & Plan (1) MARISCAL (dyspnea on exertion): Plan: Most likely due to a combination of pleural effusion and respiratory embarrassment from worsening ascites as seen on CT CTA did not show any evidence of PE 2 D ECHO last month showed preserved EF 65-70%, no regional wall abnormality. BNP is ok Will continue diuresis, if no improvement, will consider paracentesis and thoracentesis (2) Cirrhosis: Plan: Alcoholic cirrhosis History of severe alcohol abuse, last drink 1 month ago. Has promised to stop drinking for good On admission bilirubin 7.0, AST 81, ALT 22 -CT-A/P: Cirrhotic liver disease with stigmata of portal venous hypertension including splenomegaly with abdominal varices and abdominal pelvic ascites. Moderate pleural effusions with anasarca also noted. Interstitial and peripancreatic edema with trace free fluid is likely secondary to the aforementioned ascites. Correlate with lipase level to exclude superimposed acute pancreatitis. Cholelithiasis without CT evidence of acute cholecystitis. No biliary ductal dilation. Colonic diverticulosis. 3 mm nonobstructing right renal calculus. Meld 21 (19.6%), Maddrey discriminant function 38.7, child Krishnamurthy class C Albumin 2.6 WBC 3.49, hemoglobin 11.9, platelet 73. INR 1.89 No evidence of GI bleeding, low suspicion for SBP continue Lasix, Spironolactone 50mg daily Patient with discriminant function over 32 -Await GI input (3) History of alcohol abuse: Plan: As above Patient has promised to remain sober (4) Henoch-Schonlein purpura: Plan: No recurrence of rash following treatment last year Plan: Disposition: Med/surg Diet: Sodium restricted VTE PPx: Pt with thrombocytopenia. No active bleeding. Pradau score 1/IMPROVE 0 points, will use SCDs. CODE STATUS: Full code, surrogate decision maker would be his Admission and Anticipated Discharge Date Admission Date: November 25, 2021 Subjective patient seen and examined, says shortness of breath is better Review of Systems Review of Systems: All systems reviewed are negative, apart from the ones contained in the history. Physical Exam Physical Exam: The patient is awake, alert and oriented 3, well developed and well nourished, normocephalic and atraumatic, lying in bed and in no acute distress. HEENT--PERRL, EOMI, mucous membranes and oropharynx mildly dry Neck--supple. No JVD. No bruits. Thyroid normal, trachea midline, no adenopathy. Heart--normal S1 and S2. No murmurs, rubs or gallops. Lungs--Reduced air entry Abdomen--distended Extremities--no cyanosis or clubbing. No edema. Dermatologic--normal skin turgor, normal color, no abnormal lymph nodes, no rash. Neurologic--cranial nerves II through XII grossly intact. Rheumatologic--normal range of motion. Psychiatric--normal affect. Results & Data Results & Data ([facility]) Vital Signs (Past 12 Hours) Vital Signs Temp Pulse Resp BP Pulse Ox 11/26/21 07:43 98.2 F 97 H 18 132/74 91 Laboratory Results Laboratory Results - last 24 hr 11/25/21 11/25/21 11/25/21 13:03 13:03 13:03 WBC 3.49 L RBC 3.41 L Hgb 11.9 L Hct 35.5 L MCV 104.1 H MCH 34.9 H MCHC 33.5 RDW Std Deviation 62.2 H RDW Coeff of Mina 16.5 H Plt Count 73 L MPV 10.8 H Immature Gran % (Auto) 0.3 Neut % (Auto) 70.5 Lymph % (Auto) 16.6 [place] % (Auto) 9.7 Eos % (Auto) 2.3 Baso % (Auto) 0.6 Neut # (Auto) 2.46 Lymph # (Auto) 0.58 L [place] # (Auto) 0.34 Eos # (Auto) 0.08 Baso # (Auto) 0.02 Immature Gran # (Auto) 0.01 Absolute Nucleated RBC 0.03 H Nucleated RBC % (auto) 0.8 Platelet Estimate Decreased L PT 18.9 H INR 1.8 H APTT 32.5 H PTT Ratio 1.2 D-Dimer 28064 H* Sodium Potassium Chloride Carbon Dioxide Anion Gap BUN Creatinine Est Cr Clr Drug Dosing Est GFR ( Amer) Est GFR (Non-Af Amer) BUN/Creatinine Ratio Glucose Calcium Magnesium Total Bilirubin AST ALT Alkaline Phosphatase Troponin I High Sens 9.1 B-Natriuretic Peptide Total Protein Albumin Globulin Albumin/Globulin Ratio Lipase Urine Color Urine Appearance Urine pH Ur Specific [place] Urine Protein Urine Glucose (UA) Urine Ketones Urine Blood Urine Nitrite Urine Bilirubin Urine Urobilinogen Ur Leukocyte Esterase Urine WBC (Auto) Urine RBC (Auto) U Hyaline Cast (Auto) U Epithel Cells (Auto) Urine Bacteria (Auto) SARS-CoV-2, RNA, NAAT 11/25/21 11/25/21 11/25/21 13:03 13:03 13:18 WBC RBC Hgb Hct MCV MCH MCHC RDW Std Deviation RDW Coeff of Mina Plt Count MPV Immature Gran % (Auto) Neut % (Auto) Lymph % (Auto) [place] % (Auto) Eos % (Auto) Baso % (Auto) Neut # (Auto) Lymph # (Auto) [place] # (Auto) Eos # (Auto) Baso # (Auto) Immature Gran # (Auto) Absolute Nucleated RBC Nucleated RBC % (auto) Platelet Estimate PT INR APTT PTT Ratio D-Dimer Sodium 136 Potassium 3.4 L Chloride 105 Carbon Dioxide 26 Anion Gap 5 BUN 9 Creatinine 0.56 L Est Cr Clr Drug Dosing 245.9 Est GFR ( Amer) 136.9 Est GFR (Non-Af Amer) 118.1 BUN/Creatinine Ratio 16.1 Glucose 103 H Calcium 7.8 L Magnesium 1.8 Total Bilirubin 7.0 H AST 81 H ALT 22 Alkaline Phosphatase 99 Troponin I High Sens B-Natriuretic Peptide 25 Total Protein 7.4 Albumin 2.6 L Globulin 4.8 H Albumin/Globulin Ratio 0.5 L Lipase 88 H Urine Color Urine Appearance Urine pH Ur Specific [place] Urine Protein Urine Glucose (UA) Urine Ketones Urine Blood Urine Nitrite Urine Bilirubin Urine Urobilinogen Ur Leukocyte Esterase Urine WBC (Auto) Urine RBC (Auto) U Hyaline Cast (Auto) U Epithel Cells (Auto) Urine Bacteria (Auto) SARS-CoV-2, RNA, NAAT 11/25/21 11/25/21 11/26/21 13:19 15:13 05:32 WBC 3.37 L RBC 3.03 L Hgb 10.7 L Hct 32.3 L MCV 106.6 H MCH 35.3 H MCHC 33.1 RDW Std Deviation 64.0 H RDW Coeff of Mina 16.7 H Plt Count 63 L MPV 9.6 Immature Gran % (Auto) 0.3 Neut % (Auto) 64.0 Lymph % (Auto) 21.4 [place] % (Auto) 10.1 Eos % (Auto) 3.6 Baso % (Auto) 0.6 Neut # (Auto) 2.16 Lymph # (Auto) 0.72 L [place] # (Auto) 0.34 Eos # (Auto) 0.12 Baso # (Auto) 0.02 Immature Gran # (Auto) 0.01 Absolute Nucleated RBC Nucleated RBC % (auto) Platelet Estimate PT INR APTT PTT Ratio D-Dimer Sodium Potassium Chloride Carbon Dioxide Anion Gap BUN Creatinine Est Cr Clr Drug Dosing Est GFR ( Amer) Est GFR (Non-Af Amer) BUN/Creatinine Ratio Glucose Calcium Magnesium Total Bilirubin AST ALT Alkaline Phosphatase Troponin I High Sens B-Natriuretic Peptide Total Protein Albumin Globulin Albumin/Globulin Ratio Lipase Urine Color Dark Yellow Urine Appearance Clear Urine pH 6.5 Ur Specific [place] > 1.045 H Urine Protein Negative Urine Glucose (UA) Negative Urine Ketones Negative Urine Blood Negative Urine Nitrite Positive A Urine Bilirubin 1+ H Urine Urobilinogen Positive H Ur Leukocyte Esterase Trace H Urine WBC (Auto) 1-5 Urine RBC (Auto) 0-4 U Hyaline Cast (Auto) 1-5 U Epithel Cells (Auto) 5-10 H Urine Bacteria (Auto) Negative SARS-CoV-2, RNA, NAAT NEGATIVE 11/26/21 05:32 WBC RBC Hgb Hct MCV MCH MCHC RDW Std Deviation RDW Coeff of Mina Plt Count MPV Immature Gran % (Auto) Neut % (Auto) Lymph % (Auto) [place] % (Auto) Eos % (Auto) Baso % (Auto) Neut # (Auto) Lymph # (Auto) [place] # (Auto) Eos # (Auto) Baso # (Auto) Immature Gran # (Auto) Absolute Nucleated RBC Nucleated RBC % (auto) Platelet Estimate PT INR APTT PTT Ratio D-Dimer Sodium 138 Potassium 3.6 Chloride 107 Carbon Dioxide 27 Anion Gap 4 BUN 9 Creatinine 0.54 L Est Cr Clr Drug Dosing 282.7 Est GFR ( Amer) 138.9 Est GFR (Non-Af Amer) 119.9 BUN/Creatinine Ratio 16.7 Glucose 86 Calcium 7.8 L Magnesium Total Bilirubin 6.5 H AST 68 H ALT 19 Alkaline Phosphatase 81 Troponin I High Sens B-Natriuretic Peptide Total Protein 6.5 Albumin 2.3 L Globulin 4.2 H Albumin/Globulin Ratio 0.5 L Lipase Urine Color Urine Appearance Urine pH Ur Specific [place] Urine Protein Urine Glucose (UA) Urine Ketones Urine Blood Urine Nitrite Urine Bilirubin Urine Urobilinogen Ur Leukocyte Esterase Urine WBC (Auto) Urine RBC (Auto) U Hyaline Cast (Auto) U Epithel Cells (Auto) Urine Bacteria (Auto) SARS-CoV-2, RNA, NAAT PG Care Time/CCT Total # of Minutes Spent Total Time Spent with Patient: Total time spent is greater than 50% in coordination of care (as documented) at patient's floor/unit and/or counseling patient: Coding Level of Care Code 48121 Subseq Hosp Care Lvl 2 Diagnoses MARISCAL (dyspnea on exertion) R06.00 Cirrhosis K74.60; R18.8 Ascites presence: with ascites Hepatic cirrhosis type: unspecified hepatic cirrhosis History of alcohol abuse F10.11 Henoch-Schonlein purpura D69.0 Time Spent (min) 35 (1) Cirrhosis Ascites presence: with ascites Hepatic cirrhosis type: unspecified hepatic cirrhosis Qualified Code(s): K74.60 - Unspecified cirrhosis of liver; R18.8 - Other ascites
--- NOTE | 2021-11-26 11:50 | Electrocardiogram Report ---
Test Reason : Blood Pressure : / mmHG Vent. Rate : 091 BPM Atrial Rate : 091 BPM P-R Int : 174 ms QRS Dur : 102 ms QT Int : 404 ms P-R-T Axes : 004 004 012 degrees QTc Int : 496 ms Normal sinus rhythm Prolonged QT Abnormal ECG When compared with ECG of 25-NOV-2021 12:49, (unconfirmed) No significant change was found Confirmed by Ferdinand Osborne ([id number]) on 11/26/2021 11:50:11 AM Referred By: Cheryl Ortega Confirmed By:Burton Osborne
--- NOTE | 2021-11-26 11:51 | Electrocardiogram Report ---
Test Reason : Blood Pressure : / mmHG Vent. Rate : 092 BPM Atrial Rate : 092 BPM P-R Int : 158 ms QRS Dur : 104 ms QT Int : 390 ms P-R-T Axes : -04 005 017 degrees QTc Int : 483 ms Normal sinus rhythm Prolonged QT Abnormal ECG When compared with ECG of 25-NOV-2021 21:56, (unconfirmed) No significant change was found Confirmed by Ferdinand Osborne ([id number]) on 11/26/2021 11:50:47 AM Referred By: Cheryl Ortega Confirmed By:Burton Osborne
--- NOTE | 2021-11-26 16:31 | Discharge Summary ---
Date of Service November 26, 2021 Admission HPI Per Admitting Provider Jose is a 51-year-old male with a past medical history of alcohol abuse with cirrhosis, and neck Schoenlein purpura, and EBV who presents to the hospital with shortness of breath and dyspnea and who was found to have worsened cirrhosis, anasarca, pleural effusions, and evidence of progressive cirrhosis with meld 21, child Krishnamurthy class C, Madrey discriminant function 38.7 on admission. +shortness of breath, worsened to the point of not being able to go up a full flight of stairs Having a hard time sleeping in bed, lays on belly or R side but can no longer lay on L side or back No SOB when sitting up at rest Shortness of breath started 2-3 weeks ago, and graudally worsening especially in the last week no fevers, chills, sweats no chest pain, chest pressure, palpitation +swelling in legs bilaterally and in belly, R periodically since admit last year but both in the last few weeks No rash. Skin and eyes have been a little more yellow per . No itching/pruritis No AH/VH, no confusion Greater than 20 years history of alcohol use, up to 1/5 a day at peak. Last drink was 1 month ago, no history of seizures or withdrawal symptoms and has not experienced withdrawal with recent cessation of alcohol. Medical History: Reviewed. Denies other the HSP. Denies heart problems. Medications: Reviewed. Vitamins only. Surgical History: Reviewed Allergies: Reviewed Social History: Regular chew tobacco, one tin per 5 days. no cigarettes. EtoH quit 1 month ago. Prior >20years EtoH, up to a fifth per day at peak. Did not experience any withdrawal symptoms after stopping alcohol last month. Code Status: Full Code. Surrogate is Eduardo Hanna () #[phone] Principal Diagnosis alcoholic liver cirrhosis Discharge Exam The patient is awake, alert and oriented 3, well developed and well nourished, normocephalic and atraumatic, lying in bed and in no acute distress. HEENT--PERRL, EOMI, mucous membranes and oropharynx mildly dry Neck--supple. No JVD. No bruits. Thyroid normal, trachea midline, no adenopathy. Heart--normal S1 and S2. No murmurs, rubs or gallops. Lungs--Reduced air entry Abdomen--distended Extremities--no cyanosis or clubbing. No edema. Dermatologic--normal skin turgor, normal color, no abnormal lymph nodes, no rash. Neurologic--cranial nerves II through XII grossly intact. Rheumatologic--normal range of motion. Psychiatric--normal affect. Discharge Data Allergies Allergy/AdvReac Type Severity Reaction Status Date / Time No Known Allergies Allergy Verified 11/25/21 13:28 Consultations 11/25/21 15:42 ED Decision to Admit Stat 11/25/21 20:38 Consult Gastroenterology Routine Ordered Studies 11/25/21 12:24 US venous doppler LE BI Stat 11/25/21 14:10 CT abd pelvis IV con only Stat CT angio chest PE protocol Stat Hospital Course (1) MARISCAL (dyspnea on exertion): Most likely due to a combination of pleural effusion and respiratory embarrassment from worsening ascites as seen on CT CTA did not show any evidence of PE 2 D ECHO last month showed preserved EF 65-70%, no regional wall abnormality. BNP is ok Will continue diuresis, if no improvement, will consider paracentesis and thoracentesis (2) Cirrhosis: Alcoholic cirrhosis History of severe alcohol abuse, last drink 1 month ago. Has promised to stop drinking for good On admission bilirubin 7.0, AST 81, ALT 22 -CT-A/P: Cirrhotic liver disease with stigmata of portal venous hypertension including splenomegaly with abdominal varices and abdominal pelvic ascites. Moderate pleural effusions with anasarca also noted. Interstitial and peripancreatic edema with trace free fluid is likely secondary to the aforementioned ascites. Correlate with lipase level to exclude superimposed acute pancreatitis. Cholelithiasis without CT evidence of acute cholecystitis. N o biliary ductal dilation. Colonic diverticulosis. 3 mm nonobstructing right renal calculus. Meld 21 (19.6%), Tammie discriminant function 38.7, child Krishnamurthy class C Albumin 2.6 WBC 3.49, hemoglobin 11.9, platelet 73. INR 1.89 No evidence of GI bleeding, low suspicion for SBP continue Lasix, Spironolactone 50mg daily Patient with discriminant function over 32 -Await GI input (3) History of alcohol abuse: As above Patient has promised to remain sober (4) Henoch-Schonlein purpura: No recurrence of rash following treatment last year patient expressed a willingness to be discharged. he said he would follow up with GI and continue to be abstinent of alcohol Total Time Total Time Spent Total Time Spent (In Minutes): 35 Discharge Plan Discharge Items Patient Disposition: Home - Self-Care Reason For Visit: CIRRHOSIS, ASCITIES Discharge Diagnosis: alcoholic liver cirrhosis Activity: Resume your previous activity Non-emergency contact: Primary Care Provider and Practice Performance Manager Call non-emergency contact if: you have any medication questions and your symptoms worsen Follow-up/Referrals: Cheryl Ortega PA-C [Primary Care Provider] - Diet: Regular Addtl Attending Provider Instructions: please make appointment to follow up with your GI doctor Pending Studies at Discharge: No Stand-Alone Forms: My WebEvents, Smoking Cessation Medications and DC Order Prescriptions: New spironolactone 25 mg Tablet 50 mg PO QAM 30 Days Qty: 60 RF: 0 furosemide [Lasix] 40 mg tablet 40 mg PO DAILY Qty: 30 RF: 0 furosemide [Lasix] 40 mg tablet 40 mg PO DAILY Qty: 30 RF: 0 spironolactone 50 mg tablet 50 mg PO DAILY Qty: 30 RF: 0 furosemide [Lasix] 40 mg tablet 40 mg PO DAILY 30 Days Qty: 30 RF: 0 Continued multivitamin Tablet 1 tab PO DAILY RF: 0 cyanocobalamin (vitamin B-12) [Vitamin B-12] 1,000 mcg Tablet 0 mcg PO DAILY RF: 0 ascorbic acid (vitamin C) [Vitamin C] 500 mg Tablet 0 mg PO DAILY RF: 0 zinc 50 mg Tablet 0 mg PO DAILY RF: 0 cholecalciferol (vitamin D3) [Vitamin D3] 25 mcg (1,000 unit) Capsule 0 mcg PO DAILY RF: 0 Discharge Orders: Discharge Order (Routine); Ordered 11/26/21 Ordered By: Efren Verduzco Admission Data Admit Date/Time: 11/25/21 16:32 Attending Provider: Efren Verduzco Admit Provider: Primitivo Gooden Primary Care Provider: Cheryl Ortega Other Providers: Primitivo Gooden ; Armando Clay Coding Level of Care Code D/C DAY MANAGEMENT >30 MINS Diagnoses MARISCAL (dyspnea on exertion) R06.00 Cirrhosis K74.60; R18.8 Ascites presence: with ascites Hepatic cirrhosis type: unspecified hepatic cirrhosis History of alcohol abuse F10.11 Henoch-Schonlein purpura D69.0 Time Spent (min) 35
== END 2021-11-26 17:55 | disposition home or self-care (01) | DRG 433 ==
LOC: ED 11:39 → SUATTDRO 16:32 → 3N 16:32

== ENCOUNTER 2021-12-02 20:38 | Inpatient (IN) ==
--- NOTE | 2021-12-02 21:07 | Emergency Department Note ---
History of Present Illness General Chief complaint: Fever Stated complaint: 102.9 FEVER, HX CIRRHOSIS OF LIVER Time Seen by Provider: 12/02/21 20:53 Source: patient, family ( who is at the bedside), RN notes reviewed and old records reviewed Mode of arrival: ambulatory Limitations: no limitations History of Present Illness Maximum Pain Intensity: 4 This patient is a 51-year-old male who was recently diagnosed with cirrhosis, comes in for having a fever. He was shopping around 1:00 had pain in his right upper abdomen into the back. He had a temperature up to 102.8 is now going down he has had a little bit of a clear cough as well. He feels much better now. No dysuria hematuria no rash no trauma or injury no headache neck pain or stiffness. No tick bites. Occasional joint ache but nothing new or different. He has had no sick contacts. He has not had the COVID-vaccine. When he was in the hospital he had dyspnea on exertion and was fluid overloaded due to his liver that is gotten better. He says his right leg is chronically more swollen than the left and is unchanged. Home Medications Medication Instructions Recorded Confirmed Type ascorbic acid (vitamin C) 500 mg 0 mg PO DAILY 11/25/21 12/02/21 History tablet (Vitamin C) cholecalciferol (vitamin D3) 25 0 mcg PO DAILY 11/25/21 12/02/21 History mcg (1,000 unit) capsule (Vitamin D3) cyanocobalamin (vitamin B-12) 0 mcg PO DAILY 11/25/21 12/02/21 History 1,000 mcg tablet (Vitamin B-12) multivitamin 1 tab PO DAILY 11/25/21 12/02/21 History zinc 50 mg tablet 0 mg PO DAILY 11/25/21 12/02/21 History furosemide 40 mg tablet (Lasix) 40 mg PO DAILY #30 tab 11/26/21 12/02/21 Rx spironolactone 50 mg tablet 50 mg PO DAILY #30 tab 11/26/21 12/02/21 Rx Allergies Allergy/AdvReac Type Severity Reaction Status Date / Time No Known Allergies Allergy Verified 12/02/21 20:49 Past Med/Surg History Medical History (Updated 12/03/21 @ 02:34 by Oren Trujillo MD) Cirrhosis EBV infection Hypertension 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 Surgical History (Updated 12/03/21 @ 00:43 by Leticia Greco DO) History of tonsillectomy Family History Father Myocardial infarction Hypertension Grandfather Diabetes Social History Smoking Status: Never smoker Years Smoked: 41; Second Hand Exposure: Yes; Do You Dip or Chew Tobacco: Yes; Tobacco Cessation Education Requested by Patient: No Hx Alcohol Use: Yes Alcohol type: hard liquor Hx Substance Use: No Preferred Language: Burmese Communication Ability: Effective Assessment Consultant Required: No Beliefs That Will Affect Care: None Current Living Situation: Spouse Other Information That Helps Us Care for You: No Feels Safe at Home: Yes Safety Concerns: Feels Safe At This Time Assistive Devices: Glasses Review of Systems A total of 10 systems reviewed and were otherwise negative Physical Exam Vital Signs Vital Signs - 24 hr 12/02/21 20:40 12/02/21 20:41 12/02/21 21:02 Temperature 38.1 C H Temperature Source Oral Pulse Rate 129 H 120 H Pulse Rate [Left Radial] 120 H 120 H Pulse Rhythm Regular Regular Pulse Rhythm [Left Radial] Regular Regular Pulse Strength Normal Respiratory Rate 22 22 20 Respiratory Effort / Characteristics Non-Labored Spontaneous Labored Non-Labored Respiratory Depth Normal Normal Normal Respiratory Pattern Regular Regular Regular Blood Pressure 108/69 Blood Pressure [Left Arm] Blood Pressure Mean 82 Blood Pressure Mean [Left Arm] Blood Pressure Position Sitting Blood Pressure Position [Left Arm] Pulse Oximetry 95 92 95 Oxygen Delivery Method Room Air Room Air Room Air Sepsis Recent Fever Within 48 Hours Yes Sepsis New/Unexplained Change in Mental Status N/A Sepsis Action Taken by Nursing No Action Required 12/02/21 21:17 12/02/21 21:32 12/02/21 22:02 Temperature Temperature Source Pulse Rate Pulse Rate [Left Radial] 110 H 120 H Pulse Rhythm Pulse Rhythm [Left Radial] Regular Pulse Strength Respiratory Rate 20 20 20 Respiratory Effort / Characteristics Non-Labored Non-Labored Non-Labored Respiratory Depth Normal Normal Normal Respiratory Pattern Blood Pressure Blood Pressure [Left Arm] 164/92 H Blood Pressure Mean Blood Pressure Mean [Left Arm] 116 Blood Pressure Position Blood Pressure Position [Left Arm] Lying Pulse Oximetry 95 95 Oxygen Delivery Method Room Air Room Air Sepsis Recent Fever Within 48 Hours Sepsis New/Unexplained Change in Mental Status Sepsis Action Taken by Nursing 12/02/21 22:30 12/02/21 22:40 12/02/21 22:45 Temperature Temperature Source Pulse Rate Pulse Rate [Left Radial] 112 H 120 H 110 H Pulse Rhythm Pulse Rhythm [Left Radial] Regular Regular Regular Pulse Strength Respiratory Rate 20 20 20 Respiratory Effort / Characteristics Non-Labored Spontaneous Non-Labored Respiratory Depth Normal Normal Normal Respiratory Pattern Blood Pressure Blood Pressure [Left Arm] 152/78 H Blood Pressure Mean Blood Pressure Mean [Left Arm] 102 Blood Pressure Position Blood Pressure Position [Left Arm] Lying Pulse Oximetry 95 95 97 Oxygen Delivery Method Room Air Room Air Room Air Sepsis Recent Fever Within 48 Hours Sepsis New/Unexplained Change in Mental Status Sepsis Action Taken by Nursing General: Well developed well nourished not ill-appearing middle-age male who appears in no acute distress, breathing comfortably on room air. Normal speech HEENT: Normal cephalic atraumatic. Pupils are equal round and reactive to light. Extraocular movements are intact. Oropharynx is pink with moist mucous membranes. No swelling of the mouth lips or tongue. Neck: Supple with a midline trachea. No meningeal signs or stiffness, no JVD or bruits. No Stridor. Chest: Clear to auscultation bilaterally. No wheezes or rhonchi. No increased work of breathing. Heart: Regular rate and rhythm without murmurs or gallops. Abdomen: Soft nontender, nondistended without rebound guarding or rigidity. Extremities: No cyanosis clubbing. Trace to 1+ bilateral lower extremity edema right greater than left. No significant redness. No calf tenderness or assymetry Spine/Back. Non tender to palpation. No CVA tenderness Skin: Good turgor without rashes. Neurologic exam: Cranial nerves two through 12 are intact. Motor and sensation are intact and symmetrical throughout. Course Administered Medications Magnesium Sulfate/Dextrose (Magnesium Sulfate / D5w) 1 gm in 100 mls @ 50 mls/hr IV ONE ONE Stop: 12/03/21 03:59 Last Admin: 12/03/21 01:43 Dose: 50 mls/hr Documented by: [id number] Parenteral Electrolytes (Plasma-Lyte A) 1,000 mls @ 125 mls/hr IV .Q8H BLANCHE Stop: 12/03/21 09:29 Last Admin: 12/03/21 01:43 Dose: 125 mls/hr Documented by: [id number] Discontinued Medications Piperacillin Sod/Tazobactam Sod (Zosyn) 4.5 gm in 120 mls @ 240 mls/hr IV NOW ONE Stop: 12/02/21 22:47 Last Infusion: 12/02/21 23:37 Dose: 0 mls/hr Documented by: [id number] Admin: 12/02/21 22:43 Dose: 240 mls/hr Documented by: [id number] Magnesium Sulfate/Dextrose (Magnesium Sulfate / D5w) 1 gm in 100 mls @ 50 mls/hr IV Q2H STA Stop: 12/03/21 01:26 Last Infusion: 12/03/21 02:22 Dose: 0 mls/hr Documented by: [id number] Admin: 12/02/21 23:47 Dose: 50 mls/hr Documented by: [id number] Medical Decision Making Differential Diagnosis Sepsis, COVID, influenza, pneumonia, cirrhosis, SBP, viral illness, UTI, e lectrolyte or metabolic abnormality, gallbladder disease Medical Records Attestation: I reviewed the patient's medical records. Home Medications Current Medication List: was personally reviewed by me Laboratory Data Attestation: I reviewed the patient's lab results. Result diagrams: 12/03/21 00:57 12/03/21 00:57 Lab Results 12/02/21 12/02/21 12/02/21 Range/Units 21:13 21:13 21:13 WBC 6.78 (4.8-10.8) K/uL RBC 3.35 L (4.7-6.1) M/uL Hgb 11.8 L (14.0-18.0) g/dL Hct 35.6 L (42-52) % MCV 106.3 H (80-100) fL MCH 35.2 H (25-34) pg MCHC 33.1 (32-36) g/dL RDW Std Deviation 66.4 H (36.4-46.3) fL RDW Coeff of Mina 17.1 H (11.5-14.5) % Plt Count 75 L (130-400) K/uL MPV 10.5 H (7.4-10.4) fL Immature Gran % (Auto) 0.1 % Neut % (Auto) 86.1 % Lymph % (Auto) 8.0 % [place] % (Auto) 5.6 % Eos % (Auto) 0.1 % Baso % (Auto) 0.1 % Neut # (Auto) 5.83 (1.4-6.5) K/uL Lymph # (Auto) 0.54 L (1.2-3.4) K/uL [place] # (Auto) 0.38 (0.11-0.59) K/uL Eos # (Auto) 0.01 (0-0.5) K/uL Baso # (Auto) 0.01 (0-0.2) K/uL Immature Gran # (Auto) 0.01 (0.00-0.02) K/uL PT 17.7 H (9.0-12.0) Seconds INR 1.7 H (0.9-1.1) APTT 31.8 H (21.0-31.0) Seconds PTT Ratio 1.2 Sodium 132 L (136-145) mmol/L Potassium 3.5 (3.5-5.1) mmol/L Chloride 101 (98-107) mmol/L Carbon Dioxide 25 (21-32) mmol/L Anion Gap 6 (3-11) BUN 11 (6-23) mg/dl Creatinine 0.75 (0.6-1.4) mg/dl Est Cr Clr Drug Dosing 186.6 ml/min Est GFR ( Amer) 121.4 ml/min Est GFR (Non-Af Amer) 104.7 ml/min BUN/Creatinine Ratio 14.7 (10-20) Glucose 101 H (70-99(Fasting)) mg/dl Lactate Calcium 7.7 L (8.5-10.1) mg/dl Phosphorus Magnesium 1.6 L (1.7-2.4) mg/dl Ferritin (8-388) ng/ml Total Bilirubin 7.8 H (0.2-1.0) mg/dl AST 72 H (13-39) U/L ALT 21 (7-52) U/L Alkaline Phosphatase 93 (34-104) U/L Total Protein 7.3 (6.0-8.3) gm/dl Albumin 2.5 L (3.4-5.0) gm/dl Globulin 4.8 H (2.5-4.0) gm/dl Albumin/Globulin Ratio 0.5 L (0.9-2) Lipase (11-82) U/L Procalcitonin (0-0.5) ng/ml SARS-CoV-2 (PCR) (Negative) Influenza Type A (PCR) (Neg) Influenza Type B (PCR) (Neg) RSV (RT-PCR) (Neg) 12/02/21 12/02/21 12/02/21 Range/Units 21:13 21:13 21:13 WBC (4.8-10.8) K/uL RBC (4.7-6.1) M/uL Hgb (14.0-18.0) g/dL Hct (42-52) % MCV (80-100) fL MCH (25-34) pg MCHC (32-36) g/dL RDW Std Deviation (36.4-46.3) fL RDW Coeff of Mina (11.5-14.5) % Plt Count (130-400) K/uL MPV (7.4-10.4) fL Immature Gran % (Auto) % Neut % (Auto) % Lymph % (Auto) % [place] % (Auto) % Eos % (Auto) % Baso % (Auto) % Neut # (Auto) (1.4-6.5) K/uL Lymph # (Auto) (1.2-3.4) K/uL [place] # (Auto) (0.11-0.59) K/uL Eos # (Auto) (0-0.5) K/uL Baso # (Auto) (0-0.2) K/uL Immature Gran # (Auto) (0.00-0.02) K/uL PT (9.0-12.0) Seconds INR (0.9-1.1) APTT (21.0-31.0) Seconds PTT Ratio Sodium (136-145) mmol/L Potassium (3.5-5.1) mmol/L Chloride (98-107) mmol/L Carbon Dioxide (21-32) mmol/L Anion Gap (3-11) BUN (6-23) mg/dl Creatinine (0.6-1.4) mg/dl Est Cr Clr Drug Dosing ml/min Est GFR ( Amer) ml/min Est GFR (Non-Af Amer) ml/min BUN/Creatinine Ratio (10-20) Glucose (70-99(Fasting)) mg/dl Lactate TNP Calcium (8.5-10.1) mg/dl Phosphorus Cancelled Magnesium (1.7-2.4) mg/dl Ferritin (8-388) ng/ml Total Bilirubin (0.2-1.0) mg/dl AST (13-39) U/L ALT (7-52) U/L Alkaline Phosphatase (34-104) U/L Total Protein (6.0-8.3) gm/dl Albumin (3.4-5.0) gm/dl Globulin (2.5-4.0) gm/dl Albumin/Globulin Ratio (0.9-2) Lipase (11-82) U/L Procalcitonin 0.17 (0-0.5) ng/ml SARS-CoV-2 (PCR) (Negative) Influenza Type A (PCR) (Neg) Influenza Type B (PCR) (Neg) RSV (RT-PCR) (Neg) 12/02/21 12/02/21 Range/Units 21:13 21:20 WBC (4.8-10.8) K/uL RBC (4.7-6.1) M/uL Hgb (14.0-18.0) g/dL Hct (42-52) % MCV (80-100) fL MCH (25-34) pg MCHC (32-36) g/dL RDW Std Deviation (36.4-46.3) fL RDW Coeff of Mina (11.5-14.5) % Plt Count (130-400) K/uL MPV (7.4-10.4) fL Immature Gran % (Auto) % Neut % (Auto) % Lymph % (Auto) % [place] % (Auto) % Eos % (Auto) % Baso % (Auto) % Neut # (Auto) (1.4-6.5) K/uL Lymph # (Auto) (1.2-3.4) K/uL [place] # (Auto) (0.11-0.59) K/uL Eos # (Auto) (0-0.5) K/uL Baso # (Auto) (0-0.2) K/uL Immature Gran # (Auto) (0.00-0.02) K/uL PT (9.0-12.0) Seconds INR (0.9-1.1) APTT (21.0-31.0) Seconds PTT Ratio Sodium (136-145) mmol/L Potassium (3.5-5.1) mmol/L Chloride (98-107) mmol/L Carbon Dioxide (21-32) mmol/L Anion Gap (3-11) BUN (6-23) mg/dl Creatinine (0.6-1.4) mg/dl Est Cr Clr Drug Dosing ml/min Est GFR ( Amer) ml/min Est GFR (Non-Af Amer) ml/min BUN/Creatinine Ratio (10-20) Glucose (70-99(Fasting)) mg/dl Lactate Calcium (8.5-10.1) mg/dl Phosphorus 2.7 Magnesium (1.7-2.4) mg/dl Ferritin 131.8 (8-388) ng/ml Total Bilirubin (0.2-1.0) mg/dl AST (13-39) U/L ALT (7-52) U/L Alkaline Phosphatase (34-104) U/L Total Protein (6.0-8.3) gm/dl Albumin (3.4-5.0) gm/dl Globulin (2.5-4.0) gm/dl Albumin/Globulin Ratio (0.9-2) Lipase 62 (11-82) U/L Procalcitonin (0-0.5) ng/ml SARS-CoV-2 (PCR) NEGATIVE (Negative) Influenza Type A (PCR) Negative (Neg) Influenza Type B (PCR) Negative (Neg) RSV (RT-PCR) Negative (Neg) Imaging Data Attestation: I personally reviewed and interpreted this imaging study as f arties: My Impression: Chest x-raypoor inspiratory effort with large body habitus. There may be an infiltrate in the right base. No overt CHF. ECG Data Attestation: I personally reviewed and interpreted this ECG as follows: Indication: + weakness Rate (beats per minute): 119 Rhythm: + sinus tachycardia ECG Intervals/blocks: + Normal QRS, + Normal QT and + Normal [place] ECG [place]: + Normal ECG ST segments: + Normal ST segments ECG Findings: + Poor R wave progression and + Other (Low voltage.); no PACs or no PVCs Comparison ECG Date: from (11/25/21) Change: no significant change MDM Narrative This patient comes in as described above. He was placed on a manager monitoring room C1. He is here for treatment evaluation of a fever. He actually looks well at this point he has newly diagnoses of cirrhosis. He has not had any alcohol for about a month he says. He does not appear to be acutely withdrawing. I did order full sepsis type work-up. He was recently fluid overloaded and given his initial normotensive state I did not order fluid initi ally as they just took fluid off him. Multiple blood testing was obtained he was reassessed frequently. His white count is not significantly elevated. His lactic acid was unable to be obtained due to his elevated liver functions/icteric blood. Chest x-ray he may have an infiltrate in the right b ase. He has no urinary symptoms. His LFTs are baseline. His COVID testing was negative. His abdomen remains benign. he has no tenderness is possible this could be SBP. He had no instrumentation or procedures on his abdomen recently. He was given Zosyn 4.5 g IV for broad-spectrum antibiotic coverage and given his complex medical history I do think needs to be admitted/observe for further inp atient treatment and evaluation. I have consulted Dr. Greco to see him in ER for these measures. Continuous cardiac monitoring: An order was placed in EMR for continuous cardiac monitoring. Upon my interpretation the patient was noted to be in sinus tachycardia with a rate of 110 Impression & Plan Sepsis, Cirrhosis, History of alcohol abuse, Lab test negative for COVID-19 virus Discharge Plan Visit Data Chief Complaint: Fever Stated Complaint: 102.9 FEVER, HX CIRRHOSIS OF LIVER ED Provider: Oren Trujillo Discharge Problem: Sepsis, Cirrhosis, History of alcohol abuse, Lab test negative for COVID-19 virus Patient Disposition: Admitted As Inpatient Discharge Instructions Interventions: ED Discharge Assessment Last Done: 12/03/21 00:07
[2021-12-02 21:31] LABS: Hematocrit (blood only) 35.6 % (42-52); Hemoglobin 11.8 g/dL (14.0-18.0); Mean Corpuscular Hemoglobin 35.2 pg (25-34); Mean Corpuscular Hgb Conc 33.1 g/dL (32-36); Mean Corpuscular Volume 106.3 fL (80-100); RDW Coefficient of Variation 17.1 % (11.5-14.5); RDW Standard Deviation 66.4 fL (36.4-46.3); Red Blood Count 3.35 M/uL (4.7-6.1); White Blood Count 6.78 K/uL (4.8-10.8)
[2021-12-02 21:41] LABS: Albumin Globulin Ratio 0.5 (0.9-2); Albumin Level 2.5 gm/dl (3.4-5.0); BUN Creatinine Ratio 14.7 (10-20); Bilirubin,Total 7.8 mg/dl (0.2-1.0); Calcium 7.7 mg/dl (8.5-10.1); Creatinine Clr Calc Pharmacy 186.6 ml/min; Est GFR (African American) 121.4 ml/min; Est GFR (Non-African American) 104.7 ml/min; Globulin 4.8 gm/dl (2.5-4.0); Magnesium 1.6 mg/dl (1.7-2.4); Potassium 3.5 mmol/L (3.5-5.1); Total Protein 7.3 gm/dl (6.0-8.3)
[2021-12-02 21:44] LABS: INR 1.7 (0.9-1.1); Partial Thromboplastin Ratio 1.2; Partial Thromboplastin Time 31.8 Seconds (21.0-31.0); Prothrombin Time 17.7 Seconds (9.0-12.0)
[2021-12-02 21:57] LABS: Basophils # (auto) 0.01 K/uL (0-0.2); Basophils % (auto) 0.1 %; Eosinophils # (auto) 0.01 K/uL (0-0.5); Eosinophils % (auto) 0.1 %; Immature Granulocytes # (auto) 0.01 K/uL (0.00-0.02); Immature Granulocytes % (auto) 0.1 %; Lymphocytes # (auto) 0.54 K/uL (1.2-3.4); Mean Platelet Volume 10.5 fL (7.4-10.4); Monocytes # (auto) 0.38 K/uL (0.11-0.59); Monocytes % (auto) 5.6 %; Neutrophils # (auto) 5.83 K/uL (1.4-6.5); Neutrophils % (auto) 86.1 %; Platelet Count 75 K/uL (130-400)
[2021-12-02 22:08] LABS: Influenza A virus by PCR Negative (Neg); Influenza B virus by PCR Negative (Neg); RSV by PCR Negative (Neg); SARS CoV2 RNA(COVID-19) InHosp NEGATIVE (Negative)
[2021-12-02] MEDS ORDERED: PIPERACILL/TAZOBAC CONSULT ACTIVE PRN (22:18)
[2021-12-02] MEDS ORDERED: PIPERACILLIN/TAZOBACTAM 4.5 GM/120 ML BAG IV ONE (22:18)
[2021-12-02] MEDS ORDERED: MAGNESIUM SULFATE / D5W 1 GM/100 ML BAG IV STA (23:27)
--- NOTE | 2021-12-02 23:28 | History & Physical Report ---
Date of Service December 02, 2021 Assessment & Plan (1) Sepsis: Plan: Patient with fever 38.1, tachycardia with HR 125. No leukocytosis. Procalcitonin=0.17. Source unclear at this time. To consider possible PNA - patient with productive cough, CXR appears to have right sided effusion, ?PNA. No appreciable ascites on physical exam, however, limited secondary to body habitus. SBP is possibility given recent ascites - patient received Zosyn in ER. ?UTI, patient with non-obstructing right sided nephrolithiasis. -Awaiting UA - ordered, not yet collected -Follow blood cultures sent from ER -Check sputum culture -Check CT Abdomen with IV contrast - assess for fever source, presence of ascites, evaluate right renal stone noted on previous image -Zosyn 4.5gm IV q 8 -Tylenol as needed for pain or fever (2) Cirrhosis: Plan: Patient with history of EtOH abuse. Has not had a drink for over one month. He presented 11/25/21 with SOB and was found to have cirrhosis at that time based on abdominal imaging as well as laboratory workup. He had evidence of portal hypertension to include splenomegaly with abdominal varices, abdominal pelvic ascites. Labs on prior admission significant for Platelets of 73, INR of 1.8. AST of 81, Tbili of 6.5 and Albumin of 2.6. Thought to be secondary to prolonged history of drinking. He is scheduled to see GI on 16 Dec 2021. Laboratory parameters are similar today with INR of 1.7, Tbili worse at 7.8. No appreciable ascites on exam. No evidence of hepatic encephalopathy. Patient denies melena, hematochezia, hematemesis. -Check acute hepatitis panel -Check Ferritin -Check anti-smooth muscle Ab -Check anti-mitochondrial antibody -GI Consultation appreciated -Empiric coverage with Zosyn as above - will properly cover for potential SBP -Hold Spironolactone and Lasix for now in setting of infection. Measure I/Os and daily weights. -Patient had an LAURA panel performed on 10/28/21 which was essentially NEGATIVE with exception of low complement levels C3 and C4. This was performed for workup of leukocytoclastic vasculitis. C3 and C4 can be low in SLE as well as alcoholic liver disease -Patient had an acute Hepatitis panel performed on 10/26/21 which was NEGATIVE. -Abdominal imaging from 10/2020 with enlarged, cirrhotic appearing liver as well as splenomegaly -Cautious fluids, Low Na diet -Patient should keep scheduled appointment with GI. (3) Hypertension: Plan: Blood pressure mildly elevated at present, 149/73 -Holding Spironolactone and Lasix for now in setting of infection -Continue to monitor Plan: F/E/N - Normosol at 125mL/hr x 1L, Mg=1.6. Will replete with 2gm total - repeat level in AM, Low Na diet as tolerated Ppx - SCDs Code - Full per discussion with patient, at bedside Dispo - Admit to medical with telemetry History of Present Illness Chief Complaint: fever Primary Care Provider: Cheryl Ortega PA-C Jose Hanna is a pleasant 51yo male presenting with fever, cough productive for clear sputum. Patient was recently admitted on 11/25/21 with complaint os MARISCAL. He was found to have evidence of cirrhosis on imaging with evidence of portal hypertension as well as laboratory findings of Tbili of 7, AST of 81, ALT of 22 and INR of 1.8. Patient was started on Lasix and Spironolactone. He was discharged home on 11/26/21. He has followup with GI scheduled for December 16, 2021. Patient returns today with one day of fever to 102.8, chills and intermittent abdominal pain that started around 13:30 this afternoon. His pain is located in the lower abdomen, crampy in nature, intermittent. Presently without pain. Patient reports doing well since his return home. He has been compliant with his Lasix and Spironolactone. He reports increased UOP with these medications as well as significant improvement in his edema and abdominal distention. Patient denies nausea, vomiting, diarrhea, constipation. Denies melena, hematochezia, dysuria, hematuria. His rash has resolved and he denies further rash or joint pain/swelling. He has some mild right flank pain on occasion. Otherwise no complaints. ER Course: Zosyn 4.5gm, Mg x 1gm Allergies Allergy/AdvReac Type Severity Reaction Status Date / Time No Known Allergies Allergy Verified 12/02/21 20:49 Home Medications Medication Instructions Recorded Confirmed Type ascorbic acid (vitamin C) 500 mg 0 mg PO DAILY 11/25/21 12/02/21 History tablet (Vitamin C) cholecalciferol (vitamin D3) 25 0 mcg PO DAILY 11/25/21 12/02/21 History mcg (1,000 unit) capsule (Vitamin D3) cyanocobalamin (vitamin B-12) 0 mcg PO DAILY 11/25/21 12/02/21 History 1,000 mcg tablet (Vitamin B-12) multivitamin 1 tab PO DAILY 11/25/21 12/02/21 History zinc 50 mg tablet 0 mg PO DAILY 11/25/21 12/02/21 History furosemide 40 mg tablet (Lasix) 40 mg PO DAILY #30 tab 11/26/21 12/02/21 Rx spironolactone 50 mg tablet 50 mg PO DAILY #30 tab 11/26/21 12/02/21 Rx Past Med/Surg History Medical History (Updated 12/03/21 @ 00:49 by Leticia Greco DO) Cirrhosis EBV infection Hypertension 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 Surgical History (Updated 12/03/21 @ 00:43 by Leticia Greco DO) History of tonsillectomy Family History Father Myocardial infarction Hypertension Grandfather Diabetes Social History Smoking Status: Never smoker Years Smoked: 41; Second Hand Exposure: Yes; Do You Dip or Chew Tobacco: Yes; Tobacco Cessation Education Requested by Patient: No Hx Alcohol Use: Yes Alcohol type: hard liquor Hx Substance Use: No Preferred Language: Nigerian Communication Ability: Effective Rn Clinical Documentation Specialist Required: No Beliefs That Will Affect Care: None Current Living Situation: Spouse Other Information That Helps Us Care for You: No Feels Safe at Home: Yes Safety Concerns: Feels Safe At This Time Assistive Devices: Glasses Review of Systems Review of Systems: All systems reviewed & are unremarkable except as noted in HPI & below Physical Exam Physical Exam: General: patient resting comfortably, NAD, AA&O x 4 Skin: warm, dry, intact, no rashes or lesions, +JAUNDICE, +SCLERAL ICTERUS HEENT: NC/AT, PERRL, EOMI, +SCLERAL ICTERUS, conjunctiva without injection, external ear normal to inspection and nontender, nares patent, moist mucus membranes, dentition intact, no oropharyngeal lesions, +SUBLINGUAL JAUNDICE, neck supple, trachea midline, no LAD, no thyromegaly, no JVD Heart: +S1/S2, regular, no m/r/g Lungs: equal air entry bilaterally, crackles at right base, No rhonchi/wheezes Abd: Obese, +BS, soft, NT/ND, no masses/organomegaly, no appreciable ascites on physical exam Ext: warm, 2+ pulses in UE/LE bilaterally, no clubbing/cyanosis, 1+ pitting edema of bilateral LE Neuro: nonfocal, patient AA&O x 4, speech intact, no facial droop, moving all extremities on command with equal strength 5/5, no asterixis, no encephalopathy Results & Data Results & Data ([facility]) Vital Signs (Past 12 Hours) Vital Signs Temp Pulse Pulse Resp BP BP Pulse Ox 12/02/21 22:45 110 H 20 152/78 H 97 12/02/21 22:40 120 H 20 95 12/02/21 22:30 112 H 20 95 12/02/21 22:02 120 H 20 95 12/02/21 21:32 110 H 20 164/92 H 95 12/02/21 21:17 20 12/02/21 21:02 120 H 120 H 20 95 12/02/21 20:41 38.1 C H 129 H 22 108/69 92 12/02/21 20:40 120 H 22 95 Laboratory Results Laboratory Results WBC 6.78 K/uL (4.8-10.8) 12/02/21 21:13 RBC 3.35 M/uL (4.7-6.1) L 12/02/21 21:13 Hgb 11.8 g/dL (14.0-18.0) L 12/02/21 21:13 Hct 35.6 % (42-52) L 12/02/21 21:13 MCV 106.3 fL (80-100) H 12/02/21 21:13 MCH 35.2 pg (25-34) H 12/02/21 21:13 MCHC 33.1 g/dL (32-36) 12/02/21 21:13 RDW Std Deviation 66.4 fL (36.4-46.3) H 12/02/21 21:13 RDW Coeff of Mina 17.1 % (11.5-14.5) H 12/02/21 21:13 Plt Count 75 K/uL (130-400) L 12/02/21 21:13 MPV 10.5 fL (7.4-10.4) H 12/02/21 21:13 Immature Gran % (Auto) 0.1 % 12/02/21 21:13 Neut % (Auto) 86.1 % 12/02/21 21:13 Lymph % (Auto) 8.0 % 12/02/21 21:13 [place] % (Auto) 5.6 % 12/02/21 21:13 Eos % (Auto) 0.1 % 12/02/21 21:13 Baso % (Auto) 0.1 % 12/02/21 21:13 Neut # (Auto) 5.83 K/uL (1.4-6.5) 12/02/21 21:13 Lymph # (Auto) 0.54 K/uL (1.2-3.4) L 12/02/21 21:13 [place] # (Auto) 0.38 K/uL (0.11-0.59) 12/02/21 21:13 Eos # (Auto) 0.01 K/uL (0-0.5) 12/02/21 21:13 Baso # (Auto) 0.01 K/uL (0-0.2) 12/02/21 21:13 Immature Gran # (Auto) 0.01 K/uL (0.00-0.02) 12/02/21 21:13 PT 17.7 Seconds (9.0-12.0) H 12/02/21 21:13 INR 1.7 (0.9-1.1) H 12/02/21 21:13 APTT 31.8 Seconds (21.0-31.0) H 12/02/21 21:13 PTT Ratio 1.2 12/02/21 21:13 Sodium 132 mmol/L (136-145) L 12/02/21 21:13 Potassium 3.5 mmol/L (3.5-5.1) 12/02/21 21:13 Chloride 101 mmol/L (98-107) 12/02/21 21:13 Carbon Dioxide 25 mmol/L (21-32) 12/02/21 21:13 Anion Gap 6 (3-11) 12/02/21 21:13 BUN 11 mg/dl (6-23) 12/02/21 21:13 Creatinine 0.75 mg/dl (0.6-1.4) 12/02/21 21:13 Est Cr Clr Drug Dosing 186.6 ml/min 12/02/21 21:13 Est GFR ( Amer) 121.4 ml/min 12/02/21 21:13 Est GFR (Non-Af Amer) 104.7 ml/min 12/02/21 21:13 BUN/Creatinine Ratio 14.7 (10-20) 12/02/21 21:13 Glucose 101 mg/dl (70-99(Fasting)) H 12/02/21 21:13 Lactate TNP 12/02/21 21:13 Calcium 7.7 mg/dl (8.5-10.1) L 12/02/21 21:13 Magnesium 1.6 mg/dl (1.7-2.4) L 12/02/21 21:13 Total Bilirubin 7.8 mg/dl (0.2-1.0) H 12/02/21 21:13 AST 72 U/L (13-39) H 12/02/21 21:13 ALT 21 U/L (7-52) 12/02/21 21:13 Alkaline Phosphatase 93 U/L (34-104) 12/02/21 21:13 Total Protein 7.3 gm/dl (6.0-8.3) 12/02/21 21:13 Albumin 2.5 gm/dl (3.4-5.0) L 12/02/21 21:13 Globulin 4.8 gm/dl (2.5-4.0) H 12/02/21 21:13 Albumin/Globulin Ratio 0.5 (0.9-2) L 12/02/21 21:13 Procalcitonin 0.17 ng/ml (0-0.5) 12/02/21 21:13 SARS-CoV-2 (PCR) NEGATIVE (Negative) 12/02/21 21:20 Influenza Type A (PCR) Negative (Neg) 12/02/21 21:20 Influenza Type B (PCR) Negative (Neg) 12/02/21 21:20 RSV (RT-PCR) Negative (Neg) 12/02/21 21:20 Diagnostic Findings ABDOMEN AND PELVIS CT WITH IV CONTRAST - FROM PRIOR ADMISSION 11/25/21 HISTORY: Acute shortness of breath with elevated bilirubin swelling, hx etoh, sob, elev bili TECHNIQUE: Multiaxial CT images of the abdomen and pelvis were performed following the IV administration of 240 cc of Optiray, A dose lowering technique was utilized adhering to the principles of ALARA. COMPARISON STUDY: CTA chest of same day, CT abdomen and pelvis 10/27/2020 FINDINGS: Moderate layering pleural effusions with bibasilar consolidation suggestive of compressive atelectasis. Cardiomegaly. No pneumatosis or pneumoperitoneum. The spleen is enlarged measuring up to 21 cm in length. Unremarkable adrenal glands. Mild peripancreatic free fluid. Cholelithiasis without CT evidence of acute cholecystitis or biliary ductal dilation. Cirrhotic morphology of the liver. No hepatic mass identified. 3 mm nonobstructing calculus of the superior pole right kidney. 2.1 cm cyst of the inferior pole left kidney. There is no hydronephrosis or ureteral calculi identified. Urinary bladder wall thickening with partial distention. Pelvic basin phlebolith. No abdominal aortic aneurysm. Abdominal varices. Prominent and mildly enlarged periportal and retroperitoneal lymph nodes redemonstrated with a 1.4 cm periportal lymph node. Left external iliac chain lymph node measures 1.1 cm on image 445. Findings may be secondary to chronic liver disease and appear stable from prior. Periesophageal varices with mild distal esophageal wall thickening. There is no bowel obstruction or bowel wall thickening. Colonic diverticulosis. Small to moderate abdominal pelvic ascites. Mild generalized body wall edema. Degenerative changes of the spine, pelvis and hips. No destructive bone lesions or acute fracture. IMPRESSION: 1. Cirrhotic liver disease with stigmata of portal venous hypertension including splenomegaly with abdominal varices and abdominal pelvic ascites. Moderate pleural effusions with anasarca also noted. 2. Interstitial and peripancreatic edema with trace free fluid is likely secondary to the aforementioned ascites. Correlate with lipase level to exclude superimposed acute pancreatitis. 3. Cholelithiasis without CT evidence of acute cholecystitis. No biliary ductal dilation. 4. Colonic diverticulosis. 5. 3 mm nonobstructing right renal calculus. 6. Additional findings as above. ACT 112: Negative or not required by law. The above report was generated using voice recognition software. It may contain grammatical, syntax or spelling errors. Electronically signed by: Chandler James M.D. 11/25/2021 3:18 PM Dictated:11/25/21 1504 Transcribed: 11/25/21 1504 Code Status & VTE Plan VTE Prophylaxis Plan VTE Prophylaxis will be ordered: Yes PG Care Time/CCT Total # of Minutes Spent Total Time Spent with Patient: Total time spent is greater than 50% in coordination of care (as documented) at patient's floor/unit and/or counseling patient: Coding Level of Care Code 73237 Initial Inpt Care Lvl 2 Diagnoses Cirrhosis K74.60; R18.8 Ascites presence: with ascites Hepatic cirrhosis type: unspecified hepatic cirrhosis Hypertension I10 Sepsis A41.9 Sepsis acute organ dysfunction status: unspecified Sepsis type: sepsis due to unspecified organism (1) Cirrhosis Ascites presence: with ascites Hepatic cirrhosis type: unspecified hepatic cirrhosis Qualified Code(s): K74.60 - Unspecified cirrhosis of liver; R18.8 - Other ascites (2) Sepsis Sepsis acute organ dysfunction status: unspecified Sepsis type: sepsis due to unspecified organism Qualified Code(s): A41.9 - Sepsis, unspecified organism
[2021-12-03] MEDS ORDERED: PIPERACILL/TAZOBAC CONSULT ACTIVE PRN (00:32)
[2021-12-03] MEDS ORDERED: ONDANSETRON INJ 2 MG/ML 2 ML VIAL IV PRN (00:32)
[2021-12-03] MEDS ORDERED: ACETAMINOPHEN 325 MG TAB PO PRN (00:56)
[2021-12-03 01:21] LABS: Hematocrit (blood only) 35.5 % (42-52); Mean Corpuscular Hemoglobin 35.8 pg (25-34); Mean Corpuscular Hgb Conc 33.8 g/dL (32-36); RDW Coefficient of Variation 17.1 % (11.5-14.5); RDW Standard Deviation 65.7 fL (36.4-46.3); Red Blood Count 3.35 M/uL (4.7-6.1); White Blood Count 7.13 K/uL (4.8-10.8)
[2021-12-03 01:27] LABS: Mean Platelet Volume 9.8 fL (7.4-10.4); Platelet Count 71 K/uL (130-400)
[2021-12-03] MEDS ORDERED: NORMOSOL-R 1,000 ML IV SCH (01:30)
[2021-12-03 01:35] LABS: Phosphorus 2.7 mg/dl (2.5-4.9)
[2021-12-03 01:36] LABS: Basophils # (auto) 0.01 K/uL (0-0.2); Basophils % (auto) 0.1 %; Eosinophils # (auto) 0.01 K/uL (0-0.5); Eosinophils % (auto) 0.1 %; Immature Granulocytes # (auto) 0.02 K/uL (0.00-0.02); Immature Granulocytes % (auto) 0.3 %; Lymphocytes # (auto) 0.68 K/uL (1.2-3.4); Lymphocytes % (auto) 9.5 %; Monocytes # (auto) 0.41 K/uL (0.11-0.59); Monocytes % (auto) 5.8 %; Neutrophils % (auto) 84.2 %; RBC Morphology Unremarkable
[2021-12-03 01:47] LABS: Albumin Level 2.5 gm/dl (3.4-5.0); Bilirubin Direct 2.2 mg/dl (0-0.2); Bilirubin,Total 9.1 mg/dl (0.2-1.0); Calcium 7.7 mg/dl (8.5-10.1); Creatinine Clr Calc Pharmacy 172.5 ml/min; Est GFR (African American) 114.7 ml/min; Magnesium 1.8 mg/dl (1.7-2.4); Potassium 3.4 mmol/L (3.5-5.1); Total Protein 7.2 gm/dl (6.0-8.3)
[2021-12-03 01:52] LABS: Ferritin 131.8 ng/ml (8-388)
[2021-12-03] MEDS ORDERED: MAGNESIUM SULFATE / D5W 1 GM/100 ML BAG IV ONE (02:00)
[2021-12-03] MEDS: PIPERACILLIN/TAZOBACTAM 4.5 GM in DEXTROSE 5% 100 ML IV SCH ×2 (03:52→13:54)
[2021-12-03] MEDS ORDERED: FUROSEMIDE 40 MG TAB PO SCH (09:00)
[2021-12-03] MEDS ORDERED: SPIRONOLACTONE 25 MG TAB PO SCH (09:00)
[2021-12-03] MEDS ORDERED: OPTIRAY 320 125ml IV ONE (09:11)
--- NOTE | 2021-12-03 09:28 | CT Scan Report ---
ABDOMEN AND PELVIS CT WITH IV CONTRAST CT DOSE: 2945.23 mGy.cm HISTORY: fever, abdominal pain TECHNIQUE: Multiaxial CT images of the abdomen and pelvis were performed following the use of intrave nous contrast. A dose lowering technique was utilized adhering to the principles of ALARA. COMPARISON STUDY: Abdomen and pelvis CT 11/25/2021. FINDINGS: Moderate bilateral pleural effusions with compressive atelectasis within the lungs posterio rly. This remains unchanged. No pneumoperitoneum. No pneumatosis. No fractures within the visualized osseous structures. Small fat/fluid containing umbilical hernia. Mild body wall edema. Small amount o f ascites is again noted. Cirrhotic liver with portal hypertension evidenced by splenomegaly, paraeso phageal varices, and multiple upper abdominal varices. This is similar to the prior study. The main p ortal vein remains patent. There are few small stones within the gallbladder. The adrenal glands are unremarkable. There is a punctate stone within the right kidney. No ureteral stones. No hydronephrosi s. Stable 2 cm cyst within the left kidney. Normal caliber abdominal aorta. The bladder is decompress ed. The pancreas enhances normally. Mild peripancreatic edema remains unchanged. This is indeterminat e but likely secondary to the patient's edematous state. Moderate bowel wall thickening within the ce cum, ascending colon, and hepatic flexure of the colon which is new from the prior study. This sugges ts a nonspecific colitis. This could be due to an infectious or inflammatory process. A portal colopa thy could also have a similar appearance. The appendix is not identified with certainty. No dilated l oops of small bowel to suggest an obstruction. Questionable mild thickening of the duodenum. Stable p rominent gastrohepatic/periportal lymph nodes. IMPRESSION: 1. Interval development of moderate bowel wall thickening involving the cecum, ascending colon, and h epatic flexure of the colon. This suggests a nonspecific colitis and could be due to an infectious or inflammatory process. A portal colopathy could also have a similar appearance. 2. Redemonstration of the cirrhotic liver disease with evidence for portal hypertension as described above. 3. Moderate bilateral pleural effusions, unchanged. 4. Questionable duodenal thickening and mild peripancreatic edema. This is likely due to the patient' s diffuse edematous state. An associated duodenitis or pancreatitis could also have a similar appeara nce in the appropriate clinical setting. 5. Cholelithiasis. 6. Right-sided nephrolithiasis. 7. Small amount of ascites, unchanged. ACT 112: Negative or not required by law. Electronically signed by: Blair Willis M.D. 12/03/2021 9:26 AM
[2021-12-03 09:34] LABS: Appearance Urine Clear (Clear); Bacteria Urine Automated Negative (Negative); Blood Urine Negative (Negative); Color Urine Orange; Glucose Urine UA Negative (Negative); Ketones Urine Negative (Negative); Leukocyte Esterase Urine Trace (Negative); Nitrite Urine Positive (Negative); Protein Urine Negative (Negative); RBC Urine Automated 0-4 /hpf (0-4); Specific Gravity Urine 1.027 (1.000-1.030); Urobilinogen Urine Negative (Negative)
[2021-12-03 09:40] LABS: Bilirubin Urine 1+ (Negative)
--- NOTE | 2021-12-03 10:21 | Gastrointestinal Consultation ---
Date of Consultation December 03, 2021 Assessment & Plan (1) Decompensated hepatic cirrhosis: 1) Likely secondary to EtOH, complicated by LE edema and small amount of ascites, MELD-Na today 25 - agree with full hepatitis workup - SERJIO, rise 0.3 from baseline, unlikely HRS and more likely pre-renal in setting of infection, would volume challenge with albumin today 1g/kg - no evidence of other decompensation (HE, bleeding), possible hepatic hydrothorax (see below) - source of infection unclear, unlikely to be SBP given only small amount of ascites, possible viral, agree with empiric 5d coverage and f/up blood cultures - 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, will have to keep in mind on differential in future Present on Admission?: Yes (2) SERJIO (acute kidney injury): - see above - avoid nephrotoxic medications and hold diuretics for now Present on Admission?: No (3) Colitis: - no diarrhea, will need outpatient colonoscopy regardless, possibly viral etiology given acute fevers Present on Admission?: Yes (4) Duodenitis: - PPI daily for 8 weeks Present on Admission?: Yes (5) Alcohol abuse: - thiamine, folate, MVI - please arrange outpatient substance abuse counseling, inpatient SW c/s - macrocytic anemia, please check B12/folate Present on Admission?: Yes (6) Pleural effusion: - normal echo, CTA chest - possible secondary to cirrhosis, hold diuretics for now, hopefully can restart on d/c Present on Admission?: Yes (7) Lymphadenopathy: - para-esophageal LAD, will get outpatient EGD for variceal screening and can likely monitor on f/up Present on Admission?: Yes History of Present Illness Reason for Consultation: cirrhosis Attending Physician: River Ernst MD History of Present Illness 51 y/M with history of decompensated EtOH cirrhosis who presents on 12/02 with fever 102 and mild RLQ abdominal pain. The patient was hospitalized 10/26 - 10/29 of 2020 with IgA associated vasculitits (Henoch-Sochen Purpura) thought to be secondary to acute EBV infection. At that time he presents with severe joint pain, inability to walk, and fevers. Punch biopsy of diffuse skin rash showed IgA Dermopathy. Imaging and labs at that time showed cirrhosis. The patient continued to drink up until 09/2021 in which he says he didn't feel like drinking one day, but otherwise felt OK then. He previously drank 1/5th gin areli y most of his life. He was addmitted [facility] 11/25 - 11/26 for SOB, LE edema, and fevers and found to have b/l pleural effusions and started on diuretics for cirrhosis. Has upcoming outpatient GI appt in December. His symptoms for this admission started 1 day prior. Reports son's gf with viral symptoms and came in mostly due to fever, no history of abdominal pain in past, never had any endoscopy. He had one loose non-bloody BM this AM but otherwise no diarrhea. He was started on Zosyn and otherwise feels well today, no complaints. 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 Allergies Allergy/AdvReac Type Severity Reaction Status Date / Time No Known Allergies Allergy Verified 12/02/21 20:49 Home Medications Medication Instructions Recorded Confirmed Type ascorbic acid (vitamin C) 500 mg 0 mg PO DAILY 11/25/21 12/02/21 History tablet (Vitamin C) cholecalciferol (vitamin D3) 25 0 mcg PO DAILY 11/25/21 12/02/21 History mcg (1,000 unit) capsule (Vitamin D3) cyanocobalamin (vitamin B-12) 0 mcg PO DAILY 11/25/21 12/02/21 History 1,000 mcg tablet (Vitamin B-12) multivitamin 1 tab PO DAILY 11/25/21 12/02/21 History zinc 50 mg tablet 0 mg PO DAILY 11/25/21 12/02/21 History furosemide 40 mg tablet (Lasix) 40 mg PO DAILY #30 tab 11/26/21 12/02/21 Rx spironolactone 50 mg tablet 50 mg PO DAILY #30 tab 11/26/21 12/02/21 Rx Patient History Medical History (Updated 12/03/21 @ 10:39 by Jason Barton DO) Cirrhosis EBV infection Hypertension 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 Surgical History History of tonsillectomy Family History (Updated 12/03/21 @ 10:34 by Jason Barton DO) Father Myocardial infarction Hypertension Grandfather Diabetes Cirrhosis with alcoholism Social History Smoking Status: Never smoker Years Smoked: 41; Second Hand Exposure: Yes; Do You Dip or Chew Tobacco: Yes; Tobacco Cessation Education Requested by Patient: No Hx Alcohol Use: Yes Alcohol type: hard liquor Hx Substance Use: No Preferred Language: Bulgarian Communication Ability: Effective Trench Digger Required: No Beliefs That Will Affect Care: None Current Living Situation: Spouse Other Information That Helps Us Care for You: No Feels Safe at Home: Yes Safety Concerns: Feels Safe At This Time Assistive Devices: Glasses Review of Systems Review of Systems: A complete 14 point ROS is negative unless otherwise noted in above HPI. Physical Exam Physical Exam: NAD resting in bed Eyes: + anicteric sclerae and EOM intact bilaterally Respiratory: no respiratory distress Cardiovascular: RRR, no murmur, no edema Rate/Rhythm: regular rate Gastrointestinal (Abdomen): abd soft, ND, + splenomegaly Skin: no rashes, warm and dry Neurologic: AOX3 no asterixis Psychiatric: A+Ox3, euthymic affect Results & Data ([facility]) Vital Signs (Past 12 Hours) Vital Signs Temp Pulse Resp BP Pulse Ox 12/03/21 07:04 38.7 C H 111 H 20 137/62 90 12/03/21 04:34 37.9 C H 117 H 20 142/82 H 91 12/03/21 01:04 22 91 12/03/21 00:32 38.9 C H 115 H 22 152/76 H 91 12/02/21 23:37 125 H 22 149/73 H 91 12/02/21 22:45 110 H 20 152/78 H 97 12/02/21 22:40 120 H 20 95 12/02/21 22:30 112 H 20 95
--- NOTE | 2021-12-03 11:39 | Electrocardiogram Report ---
Test Reason : Blood Pressure : / mmHG Vent. Rate : 119 BPM Atrial Rate : 119 BPM P-R Int : 160 ms QRS Dur : 092 ms QT Int : 332 ms P-R-T Axes : 010 013 020 degrees QTc Int : 467 ms Sinus tachycardia Low voltage QRS Poor R wave progression, consider anterior RI vs. lead placement vs. LVH Abnormal ECG When compared with ECG of 25-NOV-2021 21:56, No significant change was found Confirmed by Logan Clay ([id number]) on 12/03/2021 11:39:02 AM Referred By: REFERRED SELF Confirmed By:Logan Clay
--- NOTE | 2021-12-03 11:46 | XRay Report ---
XR chest 1V portable CLINICAL HISTORY: SEPSIS COMPARISON STUDY: Chest CT and chest radiograph November 25, 2021. FINDINGS: No pneumothorax. Moderate bilateral pleural effusions with bibasilar opacities are noted. R ight pleural effusion has slightly increased. There is persistent pulmonary edema. Cardiomegaly is no francheska. IMPRESSION: Persistent pulmonary edema with moderate bilateral pleural effusions and associated biba silar opacities. ACT 112: Negative or not required by law. Electronically signed by: Sriram Guadalupe M.D. 12/03/2021 11:44 AM
[2021-12-03] MEDS ORDERED: NON-FORMULARY MEDICATION (Zinc 50 mg Tablet) PO SCH (12:45)
[2021-12-03] MEDS ORDERED: CHOLECALCIFEROL 1,000 UNITS 25 MCG TAB PO SCH (12:45)
[2021-12-03] MEDS ORDERED: ASCORBIC ACID 500 MG TAB PO SCH (12:45)
[2021-12-03] MEDS: MULTIVITAMIN TAB PO SCH (13:55)
--- NOTE | 2021-12-03 18:34 | Hospitalist Progress Note ---
Date of Service December 03, 2021 Assessment & Plan (1) Sepsis: Plan: Presented with fever tachycardia productive cough All symptoms improved today Possibly upper respiratory tract infection Patient is smoker Stop Zosyn Started on doxycycline Doubt this is spontaneous bacterial peritonitis If the patient medically stable tomorrowhe can leave (2) Cirrhosis: Plan: Most likely patient with history of EtOH abuse. He has a high ashley score , patient has jaundice, bilirubin is trending up, current bilirubin is 9.1, bilirubin yesterday was 7.8, he stopped drinking 4 months Discussed with consulting compensation manager at this point did not recommend to initiate patient on steroid has not had a drink for over one month. He presented 11/25/21 with SOB and was found to have cirrhosis at that time based on abdominal imaging as well as laboratory workup. He had evidence of portal hypertension to include splenomegaly with abdominal varices, abdominal pelvic ascites. Labs on prior admission significant for Platelets of 73, INR of 1.8. AST of 81, Tbili of 6.5 and Albumin of 2.6. Thought to be secondary to prolonged history of drinking. He is scheduled to see GI on 16 Dec 2021. Laboratory parameters are similar today with INR of 1.7, Tbili worse at 7.8. No appreciable ascites on exam. No evidence of hepatic encephalopathy. Patient denies melena, hematochezia, hematemesis. -Check acute hepatitis panel -Check Ferritin -Check anti-smooth muscle Ab -Check anti-mitochondrial antibody -GI Consultation appreciated -Patient had an LAURA panel performed on 10/28/21 which was essentially NEGATIVE with exception of low complement levels C3 and C4. This was performed for workup of leukocytoclastic vasculitis. C3 and C4 can be low in SLE as well as alcoholic liver disease -Patient had an acute Hepatitis panel performed on 10/26/21 which was NEGATIVE. -Abdominal imaging from 10/2020 with enlarged, cirrhotic appearing liver as well as splenomegaly Cautious fluids, Low Na diet (3) Hypertension: Plan: Blood pressure mildly elevated at present, 149/73 -Holding Spironolactone and Lasix for now in setting of infection -Continue to monitor Plan: F/E/N - Normosol at 125mL/hr x 1L, Mg=1.6. Will replete with 2gm total - repeat level in AM, Low Na diet as tolerated Ppx - SCDs Code - Full per discussion with patient, at bedside Dispo - Admit to medical with telemetry Admission and Anticipated Discharge Date Admission Date: December 02, 2021 Subjective Feels better no cough no fever no productive sputum Physical Exam Physical Exam: General: patient resting comfortably, NAD, AA&O x 4 Skin: warm, dry, intact, no rashes or lesions, +JAUNDICE, +SCLERAL ICTERUS HEENT: NC/AT, PERRL, EOMI, +SCLERAL ICTERUS, conjunctiva without injection, external ear normal to inspection and nontender, nares patent, moist mucus membranes, dentition intact, no oropharyngeal lesions, +SUBLINGUAL JAUNDICE, neck supple, trachea midline, no LAD, no thyromegaly, no JVD Heart: +S1/S2, regular, no m/r/g Lungs: equal air entry bilaterally, crackles at right base, No rhonchi/wheezes Abd: Obese, +BS, soft, NT/ND, no masses/organomegaly, no appreciable ascites on physical exam Ext: warm, 2+ pulses in UE/LE bilaterally, no clubbing/cyanosis, 1+ pitting edema of bilateral LE Neuro: nonfocal, patient AA&O x 4, speech intact, no facial droop, moving all extremities on command with equal strength 5/5, no asterixis, no encephalopathy Results & Data Results & Data ([facility]) Vital Signs (Past 12 Hours) Vital Signs Temp Pulse Pulse Resp BP Pulse Ox 12/03/21 16:07 36.7 C 96 H 20 155/75 H 92 12/03/21 15:15 92 H 12/03/21 11:46 37.2 C 92 H 18 125/61 92 12/03/21 08:00 110 H 12/03/21 07:04 38.7 C H 111 H 20 137/62 90 PG Care Time/CCT Total # of Minutes Spent Total Time Spent with Patient: Total time spent is greater than 50% in coordination of care (as documented) at patient's floor/unit and/or counseling patient: Coding Level of Care Code 50642 Subseq Hosp Care Lvl 3 Diagnoses Sepsis A41.9 Sepsis acute organ dysfunction status: unspecified Sepsis type: sepsis due to unspecified organism Cirrhosis K74.60 Ascites presence: unspecified Hepatic cirrhosis type: unspecified hepatic cirrhosis Hypertension I10 (1) Sepsis Sepsis acute organ dysfunction status: unspecified Sepsis type: sepsis due to unspecified organism Qualified Code(s): A41.9 - Sepsis, unspecified organism (2) Cirrhosis Ascites presence: unspecified Hepatic cirrhosis type: unspecified hepatic cirrhosis Qualified Code(s): K74.60 - Unspecified cirrhosis of liver
[2021-12-03] MEDS: DOXYCYCLINE HYCLATE 100 MG CAP PO SCH (20:24)
[2021-12-04 05:56] LABS: HBSAG NON-REACTIVE (NON-REACTIVE); Hepatitis A Antibody IgM NON-REACTIVE (NON-REACTIVE); Hepatitis B Core Antibody IgM NON-REACTIVE (NON-REACTIVE)
[2021-12-04 07:19] LABS: Hematocrit (blood only) 29.7 % (42-52); Hemoglobin 9.9 g/dL (14.0-18.0); Mean Corpuscular Hemoglobin 35.5 pg (25-34); Mean Corpuscular Hgb Conc 33.3 g/dL (32-36); Mean Corpuscular Volume 106.5 fL (80-100); RDW Coefficient of Variation 17.1 % (11.5-14.5); RDW Standard Deviation 66.8 fL (36.4-46.3); Red Blood Count 2.79 M/uL (4.7-6.1); White Blood Count 5.54 K/uL (4.8-10.8)
[2021-12-04 07:41] LABS: Mean Platelet Volume 10.7 fL (7.4-10.4); Platelet Count 51 K/uL (130-400)
[2021-12-04 07:46] LABS: Albumin Globulin Ratio 0.5 (0.9-2); Albumin Level 2.1 gm/dl (3.4-5.0); BUN Creatinine Ratio 22.4 (10-20); Bilirubin,Total 10.4 mg/dl (0.2-1.0); Calcium 7.5 mg/dl (8.5-10.1); Creatinine Clr Calc Pharmacy 255.7 ml/min; Est GFR (African American) 134.9 ml/min; Est GFR (Non-African American) 116.4 ml/min; Potassium 3.4 mmol/L (3.5-5.1); Total Protein 6.1 gm/dl (6.0-8.3)
[2021-12-04] MEDS: DOXYCYCLINE HYCLATE 100 MG CAP PO SCH (08:30)
[2021-12-04] MEDS: MULTIVITAMIN TAB PO SCH (08:30)
--- NOTE | 2021-12-04 09:52 | Gastroenterology Progress Note ---
Date of Service December 04, 2021 Assessment & Plan (1) Decompensated hepatic cirrhosis: Plan: 1) Likely secondary to EtOH, complicated by LE edema and small amount of ascites, MELD-Na again 25 - bilirubin continues to rise, likely acute on chronic liver failure in se tting of infection. Please obtain mesenteric duplex, INR daily, change tylenol <2g daily. - agree with full hepatitis workup - SERJIO resolved, not HRS - no evidence of other decompensation (HE, bleeding), possible hepatic hydrothorax (see below) - source of infection unclear, only small amount of ascites --> pneumonia vs possible colitis, consider switching to moxi/flagyl for 7 days total. 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, will have to keep in mind on differential in future (2) SERJIO (acute kidney injury): Plan: - resolved, pre-renal (3) Colitis: Plan: - loose BMs that resolved, hold on stool culture, will need outpatient colonoscopy regardless (4) Duodenitis: Plan: - PPI daily for 8 weeks (5) Alcohol abuse: Plan: - thiamine, folate, MVI - please arrange outpatient substance abuse counseling, inpatient SW c/s - macrocytic anemia, please check B12/folate (6) Pleural effusion: Plan: - normal echo, CTA chest - possible secondary to cirrhosis, hold diuretics for now, hopefully can restart on d/c (7) Lymphadenopathy: Plan: - para-esophageal LAD, will get outpatient EGD for variceal screening and can likely monitor on f/up Admission and Anticipated Discharge Date Admission Date: December 02, 2021 Subjective 2-3 loose nonbloody BMs yesterday, feels stools are becoming more well formed. Energy feels improved today, eating well, no n/v, wants d/c. He notes the right sided abdominal pain has been going on for years and is bloating sensation that happens daily and improved w/ BMs. He notes cough only at night when he lays down and takes while to cough out production. His symptoms of cough and MARISCAL that brought him into hospital on 11/25 are unchanged from his presentation this time. Review of Systems Review of Systems: A complete 14 point ROS is negative unless otherwise noted in above HPI. Physical Exam Physical Exam: NAD resting in bed Eyes: + anicteric sclerae and EOM intact bilaterally Respiratory: no respiratory distress Cardiovascular: Rate/Rhythm: regular rate Gastrointestinal (Abdomen): soft NT ND + splenomegaly Skin: no rashes, warm and dry Psychiatric: A+Ox3, euthymic affect Results & Data ([facility]) Vital Signs (Past 12 Hours) Vital Signs Temp Pulse Resp BP Pulse Ox 12/04/21 06:57 37.0 C 94 H 20 137/63 92 12/04/21 03:13 37.4 C 98 H 20 140/70 92 12/03/21 23:48 37.0 C 101 H 20 143/55 H 92
--- NOTE | 2021-12-04 17:31 | Hospitalist Progress Note ---
Date of Service December 04, 2021 Assessment & Plan (1) Sepsis: Plan: Presented with fever tachycardia productive cough All symptoms improved today Possibly upper respiratory tract infection Patient is smoker Stop Zosyn Started on doxycycline Doubt this is spontaneous bacterial peritonitis (2) Cirrhosis: Plan: Most likely patient with history of EtOH abuse. He has a high ashley score , patient has jaundice, bilirubin is trending up, current bilirubin is today is 10 .4 he stopped drinking 4 months ago Discussed with consulting supervisor tank house at this point did not recommend to initiate patient on steroid has not had a drink for over one month. Discussed with consulting supervisor tank house recommended to the Doppler studies of mesenteric artery -Recommend to start him on Flagyl and moxifloxacin for possible colitis he presented 11/25/21 with SOB and was found to have cirrhosis at that time based on abdominal imaging as well as laboratory workup. He had evidence of portal hypertension to include splenomegaly with abdominal varices, abdominal pelvic ascites. Labs on prior admission significant for Platelets of 73, INR of 1.8. AST of 81, Tbili of 6.5 and Albumin of 2.6. Thought to be secondary to prolonged history of drinking. He is scheduled to see GI on 16 Dec 2021. Laboratory parameters are similar today with INR of 1.7, Tbili worse at 7.8. No appreciable ascites on exam. No evidence of hepatic encephalopathy. Patient denies melena, hematochezia, hematemesis. -Check acute hepatitis panel -Check Ferritin -Check anti-smooth muscle Ab -Check anti-mitochondrial antibody -GI Consultation appreciated -Patient had an LAURA panel performed on 10/28/21 which was essentially NEGATIVE with exception of low complement levels C3 and C4. This was performed for workup of leukocytoclastic vasculitis. C3 and C4 can be low in SLE as well as alcoholic liver disease -Patient had an acute Hepatitis panel performed on 10/26/21 which was NEGATIVE. -Abdominal imaging from 10/2020 with enlarged, cirrhotic appearing liver as well as splenomegaly Cautious fluids, Low Na diet (3) Hypertension: Plan: Blood pressure mildly elevated at present, 149/73 -Holding Spironolactone and Lasix for now in setting of infection -Continue to monitor Plan: F/E/N - Normosol at 125mL/hr x 1L, Mg=1.6. Will replete with 2gm total - repeat level in AM, Low Na diet as tolerated Ppx - SCDs Code - Full per discussion with patient, at bedside Dispo - Admit to medical with telemetry Admission and Anticipated Discharge Date Admission Date: December 02, 2021 Subjective Feels better today, however bilirubin is trending up Review of Systems Review of Systems: General: No malaise no weakness Neck: No tenderness no pain HEENT: No eye discharge no ear discharge Chest: No chest pain, no palpitation GI: Not distended, no nausea no vomiting Extremities: No edema no tenderness Neurology: No headache no weakness Psychiatric: No depression no anxiety Physical Exam Physical Exam: General: patient resting comfortably, NAD, AA&O x 4 Skin: warm, dry, intact, no rashes or lesions, +JAUNDICE, +SCLERAL ICTERUS HEENT: NC/AT, PERRL, EOMI, +SCLERAL ICTERUS, conjunctiva without injection, external ear normal to inspection and nontender, nares patent, moist mucus membranes, dentition intact, no oropharyngeal lesions, +SUBLINGUAL JAUNDICE, neck supple, trachea midline, no LAD, no thyromegaly, no JVD Heart: +S1/S2, regular, no m/r/g Lungs: equal air entry bilaterally, crackles at right base, No rhonchi/wheezes Abd: Obese, +BS, soft, NT/ND, no masses/organomegaly, no appreciable ascites on physical exam Ext: warm, 2+ pulses in UE/LE bilaterally, no clubbing/cyanosis, 1+ pitting edema of bilateral LE Neuro: nonfocal, patient AA&O x 4, speech intact, no facial droop, moving all extremities on command with equal strength 5/5, no asterixis, no encephalopathy Results & Data Results & Data ([facility]) Vital Signs (Past 12 Hours) Vital Signs Temp Pulse Pulse Resp BP Pulse Ox 12/04/21 15:56 97 H 12/04/21 15:28 37.0 C 91 H 18 136/70 92 12/04/21 11:15 37.1 C 100 H 18 131/68 91 12/04/21 08:00 98 H 12/04/21 06:57 37.0 C 94 H 20 137/63 92 PG Care Time/CCT Total # of Minutes Spent Total Time Spent with Patient: Total time spent is greater than 50% in coordination of care (as documented) at patient's floor/unit and/or counseling patient: Coding Level of Care Code 99434 Subseq Hosp Care Lvl 3 Diagnoses Sepsis A41.9 Sepsis acute organ dysfunction status: unspecified Sepsis type: sepsis due to unspecified organism Cirrhosis K74.60 Ascites presence: unspecified Hepatic cirrhosis type: unspecified hepatic cirrhosis Hypertension I10 (1) Sepsis Sepsis acute organ dysfunction status: unspecified Sepsis type: sepsis due to unspecified organism Qualified Code(s): A41.9 - Sepsis, unspecified organism (2) Cirrhosis Ascites presence: unspecified Hepatic cirrhosis type: unspecified hepatic cirrhosis Qualified Code(s): K74.60 - Unspecified cirrhosis of liver
[2021-12-04] MEDS ORDERED: MOXIFLOXACIN / 0.8% SALINE 400 MG/250 ML BAG IV SCH (17:45)
[2021-12-04] MEDS ORDERED: levoFLOXacin/D5W 750 MG/150 ML BAG IV SCH (20:00)
[2021-12-04] MEDS: metroNIDAZOLE 500 MG TAB PO SCH (20:24)
[2021-12-05 07:31] LABS: Hematocrit (blood only) 30.1 % (42-52); Mean Corpuscular Hemoglobin 35.1 pg (25-34); Mean Corpuscular Hgb Conc 33.2 g/dL (32-36); Mean Corpuscular Volume 105.6 fL (80-100); Red Blood Count 2.85 M/uL (4.7-6.1); White Blood Count 3.81 K/uL (4.8-10.8)
[2021-12-05 07:34] LABS: Mean Platelet Volume 10.6 fL (7.4-10.4); Platelet Count 57 K/uL (130-400)
[2021-12-05 07:56] LABS: Albumin Globulin Ratio 0.5 (0.9-2); Albumin Level 2.1 gm/dl (3.4-5.0); Bilirubin,Total 8.8 mg/dl (0.2-1.0); Calcium 7.6 mg/dl (8.5-10.1); Creatinine Clr Calc Pharmacy 296.8 ml/min; Est GFR (African American) 143.4 ml/min; Est GFR (Non-African American) 123.7 ml/min; Globulin 4.1 gm/dl (2.5-4.0); Potassium 3.3 mmol/L (3.5-5.1); Total Protein 6.2 gm/dl (6.0-8.3)
[2021-12-05] MEDS: MULTIVITAMIN TAB PO SCH (08:15)
[2021-12-05] MEDS: metroNIDAZOLE 500 MG TAB PO SCH (08:16)
--- NOTE | 2021-12-05 08:49 | Gastroenterology Progress Note ---
Date of Service December 05, 2021 Assessment & Plan (1) Decompensated hepatic cirrhosis: Plan: Decompensated hepatic cirrhosis: Likely secondary to EtOH, complicated by LE edema and small amount of ascites - bilirubin 8.8 this morning which is improved, likely acute on chronic liver failure in setting of infection. Mesenteric duplex completed 12/04/2021, Please obtain INR daily, tylenol <2g daily. - agree with full hepatitis workup (negative) - SERJIO resolved, not HRS - no evidence of other decompensation (HE, bleeding), possible hepatic hydrothorax (see below) - source of infection unclear, only small amount of ascites --> pneumonia vs possible colitis, consider switching to moxi/flagyl for 7 days total. 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 Puga. Please refer to supervising physician addendum for further recommendations. I have spent 40 minutes of discrete time performing the activities of this visit which include but are not limited to review of the medical record, obtaining a history, physical exam, and entering information in the electronic record. (2) Duodenitis: (3) Colitis: (4) Alcohol abuse: (5) Lymphadenopathy: Admission and Anticipated Discharge Date Admission Date: December 02, 2021 Supervising Physician Co-Signing Physician Notes I have seen and examined the patient. I agree with note above by JOSE ALBERTO Troncoso except as noted below. HPI Pt without complaint. He is being DCed today. PE Abdomen pos bs, soft, no guarding nor rebound A/P cirrhosis--avoid ETOH, lose weight varices--outpt EGD thickened duodenum on CT--EGD outpt thickened colon on CT --EGD as outpt. As the supervising physician, I , Oren Puga MD have spent 20 minutes of discrete time performing the activities of this visit which include but not limited to review of the medical records, obtaining a history, physical exam and entering information in the electronic record. JOSE ALBERTO Troncoso has reported spending 40 minutes of discrete time with the activities of this visit. Subjective The patient is a pleasant 51-year-old male with a past medical history to include alcohol abuse, hypertension, IgA mediated leukocytoclastic vasculitis who presented to the emergency department with complaints of shortness of breath, leg swelling, abdominal swelling, fever. Recent inpatient admission 11/25/2021 to 11/26/2021 due to same with cirrhosis, anasarca, pleural effusions, cirrhosis. He was subsequently admitted for concerns of sepsis and the GI service was consulted due to cirrhosis with evidence of portal hypertension. On exam/interview today, the patient reports that he is feeling significantly better. Denies any abdominal pain, nausea, vomiting. Reports his appetite is good. Reports he had a bowel movement this morning. No melena or hematochezia in stools. He reports that he drank 1/5 of gin for approximately 10 years. Reports he quit drinking alcohol approximately 1 month ago. Does not smoke cigarettes. He does use smokeless tobacco. Alcohol use as noted above. Denies use of recreational drugs including marijuana. 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 He is with 1 adult son and 2 stepchildren. Review of Systems Review of Systems: All systems reviewed & are unremarkable except as noted in Subjective Physical Exam Physical Exam: NAD resting in bed Eyes: + anicteric sclerae and EOM intact bilaterally Respiratory: no respiratory distress Cardiovascular: Rate/Rhythm: regular rate Gastrointestinal (Abdomen): Inspection/Auscultation: normal bowel sounds Percussion/Palpation: abdomen soft and + splenomegaly; abdomen nontender, no guarding and abdomen not rigid Skin: + jaundice Psychiatric: A+Ox3, euthymic affect Results & Data ([facility]) Vital Signs (Past 12 Hours) Vital Signs Temp Pulse Pulse Resp BP Pulse Ox 12/05/21 06:41 36.9 C 89 20 128/61 92 12/05/21 03:59 36.7 C 91 H 20 166/81 H 92 12/04/21 23:39 36.9 C 90 20 146/75 H 92 12/04/21 22:17 90 Laboratory Results Laboratory Results - last 24 hr 12/05/21 12/05/21 06:50 06:50 WBC 3.81 L RBC 2.85 L Hgb 10.0 L Hct 30.1 L MCV 105.6 H MCH 35.1 H MCHC 33.2 RDW Std Deviation 66.0 H RDW Coeff of Mina 17.0 H Plt Count 57 L MPV 10.6 H Sodium 133 L Potassium 3.3 L Chloride 103 Carbon Dioxide 26 Anion Gap 4 BUN 11 Creatinine 0.50 L Est Cr Clr Drug Dosing 296.8 Est GFR ( Amer) 143.4 Est GFR (Non-Af Amer) 123.7 BUN/Creatinine Ratio 22.0 H Glucose 82 Calcium 7.6 L Total Bilirubin 8.8 H AST 43 H ALT 15 Alkaline Phosphatase 66 Total Protein 6.2 Albumin 2.1 L Globulin 4.1 H Albumin/Globulin Ratio 0.5 L Diagnostic Findings Mesenteric US 12/04/21 17:24 US duplex mesenteric CLINICAL HISTORY: RISING BILLIRUBIN . Reported history of cirrhosis TECHNIQUE: Grayscale, color and spectral waveform Doppler examination of the abdomen was performed. Comparison: None available at the time of this dictation. FINDINGS: The study is limited by overlying bowel gas and body habitus. The imaged portion of the upper abdominal aorta is patent. The celiac axis is not visualized due to limitations described. The SMA is nonvisualized due to limitations described. The BELLE cannot be visualized. IMPRESSION: Markedly limited examination.. ACT 112: Negative or not required by law. Electronically signed by: Marcel Mccallum M.D. 12/05/2021 9:04 AM
--- NOTE | 2021-12-05 09:05 | Ultrasound Report ---
US duplex mesenteric CLINICAL HISTORY: RISING BILLIRUBIN . Reported history of cirrhosis TECHNIQUE: Grayscale, color and spectral waveform Doppler examination of the abdomen was performed. Comparison: None available at the time of this dictation. FINDINGS: The study is limited by overlying bowel gas and body habitus. The imaged portion of the upper abdominal aorta is patent. The celiac axis is not visualized due to limitations described. The SMA is nonvisualized due to limitations described. The BELLE cannot be visualized. IMPRESSION: Markedly limited examination.. ACT 112: Negative or not required by law. Electronically signed by: Marcel Mccallum M.D. 12/05/2021 9:04 AM
--- NOTE | 2021-12-05 19:00 | Discharge Summary ---
Date of Service December 05, 2021 Admission HPI Per Admitting Provider Jose Hanna is a pleasant 51yo male presenting with fever, cough productive for clear sputum. Patient was recently admitted on 11/25/21 with complaint os MARISCAL. He was found to have evidence of cirrhosis on imaging with evidence of portal hypertension as well as laboratory findings of Tbili of 7, AST of 81, ALT of 22 and INR of 1.8. Patient was started on Lasix and Spironolactone. He was discharged home on 11/26/21. He has followup with GI scheduled for December 16, 2021. Patient returns today with one day of fever to 102.8, chills and intermittent abdominal pain that started around 13:30 this afternoon. His pain is located in the lower abdomen, crampy in nature, intermittent. Presently without pain. Patient reports doing well since his return home. He has been compliant with his Lasix and Spironolactone. He reports increased UOP with these medications as well as significant improvement in his edema and abdominal distention. Patient denies nausea, vomiting, diarrhea, constipation. Denies melena, hem atochezia, dysuria, hematuria. His rash has resolved and he denies further rash or joint pain/swelling. He has some mild right flank pain on occasion. Otherwise no complaints. ER Course: Zosyn 4.5gm, Mg x 1gm Principal Diagnosis Jaundice, possibly secondary to alcohol abuse Liver cirrhosis complicated with hype for natremia, thrombocytopenia, jaundice and coagulopathic Discharge Exam General: patient resting comfortably, NAD, AA&O x 4 Skin: warm, dry, intact, no rashes or lesions, +JAUNDICE, +SCLERAL ICTERUS HEENT: NC/AT, PERRL, EOMI, +SCLERAL ICTERUS, conjunctiva without injection, external ear normal to inspection and nontender, nares patent, moist mucus membranes, dentition intact, no oropharyngeal lesions, +SUBLINGUAL JAUNDICE, neck supple, trachea midline, no LAD, no thyromegaly, no JVD Heart: +S1/S2, regular, no m/r/g Lungs: equal air entry bilaterally, crackles at right base, No rhonchi/wheezes Abd: Obese, +BS, soft, NT/ND, no masses/organomegaly, no appreciable ascites on physical exam Ext: warm, 2+ pulses in UE/LE bilaterally, no clubbing/cyanosis, 1+ pitting edema of bilateral LE Neuro: nonfocal, patient AA&O x 4, speech intact, no facial droop, moving all extremities on command with equal strength 5/5, no asterixis, no encephalopathy Discharge Data Allergies Allergy/AdvReac Type Severity Reaction Status Date / Time No Known Allergies Allergy Verified 12/02/21 20:49 Consultations 12/02/21 22:19 ED Decision to Admit Stat 12/03/21 00:32 Consult Gastroenterology Routine Ordered Studies 12/03/21 00:51 CT abd pelvis IV con only Routine 12/04/21 17:24 US duplex mesenteric Routine Hospital Course (1) Sepsis: Presented with fever tachycardia productive cough All symptoms improved Possibly upper respiratory tract infection Patient is a smoker Stop Zosyn Started on doxycycline for 3 days (2) Cirrhosis: Most likely patient with history of EtOH abuse. He has a high ashley score , patient has jaundice, bilirubin peaked around 10.4, now is trending down, currently is 8he stopped drinking 4 months ago Discussed with consulting marine chronometer assembler at this point did not recommend to initiate patient on steroid has not had a drink for over one month. Discussed with consulting marine chronometer assembler recommended to the Doppler studies of mesenteric artery, it was done it was a limited study but unremarkable findings he presented 11/25/21 with SOB and was found to have cirrhosis at that time based on abdominal imaging as well as laboratory workup. He had evidence of portal hypertension to include splenomegaly with abdominal varices, abdominal pelvic ascites. Labs on prior admission significant for Platelets of 73, INR of 1.8. AST of 81, Tbili of 6.5 and Albumin of 2.6. Thought to be secondary to prolonged history of drinking. He is scheduled to see GI on 16 Dec 2021. Laboratory parameters are similar today with INR of 1.7, Tbili worse at 10.4 No appreciable ascites on exam. No evidence of hepatic encephalopathy. Patient denies melena, hematochezia, hematemesis. - acute hepatitis panel negative -Check Ferritin -Check anti-smooth muscle Ab -Check anti-mitochondrial antibody -GI Consultation appreciated -Patient had an LAURA panel performed on 10/28/21 which was essentially NEGATIVE with exception of low complement levels C3 and C4. This was performed for workup of leukocytoclastic vasculitis. C3 and C4 can be low in SLE as well as alcoholic liver disease -Patient had an acute Hepatitis panel performed on 10/26/21 which was NEGATIVE. -Abdominal imaging from 10/2020 with enlarged, cirrhotic appearing liver as well as splenomegaly Cautious fluids, Low Na diet (3) Hypertension: Continue spironolactone, continue Lasix F/E/N - Normosol at 125mL/hr x 1L, Mg=1.6. Will replete with 2gm total - repeat level in AM, Low Na diet as tolerated Ppx - SCDs Code - Full per discussion with patient, at bedside Dispo - Admit to medical with telemetry Total Time Total Time Spent Total Time Spent (In Minutes): 45 Discharge Plan Discharge Items Patient Disposition: Home - Self-Care Reason For Visit: FEVER Discharge Diagnosis: Fever probably secondary to viral disease Condition on Discharge: Fair Activity: Resume your previous activity Lifting: Gradually increase as tolerated Bathing: No limitations Sexual Activity: When tolerated Exercise/Sports: Gradually increase as tolerated Driving/Machine Use: No limitations Non-emergency contact: Cylinder Tester Call non-emergency contact if: you have any medication questions and your symptoms worsen Follow-up/Referrals: Armando Clay MD [Physician] - 12/15/22 (End-stage liver disease, jaundice, most likely alcohol induced) Cheryl Ortega PA-C [Primary Care Provider] - Diet: Low Sodium (2gm) Addtl Attending Provider Instructions: You are high risk of bleeding please avoid any activities that put you at risk of bleeding Please avoid drinking alcoholic beverages You may need liver transplant, we need more gastroenterology work-up, please follow-up with marine chronometer assembler as instructed Pending Studies at Discharge: No Stand-Alone Forms: My [facility] [employer], Smoking Cessation Medications and DC Order Prescriptions: Continued multivitamin Tablet 1 tab PO DAILY RF: 0 cyanocobalamin (vitamin B-12) [Vitamin B-12] 1,000 mcg Tablet 0 mcg PO DAILY RF: 0 ascorbic acid (vitamin C) [Vitamin C] 500 mg Tablet 0 mg PO DAILY RF: 0 zinc 50 mg Tablet 0 mg PO DAILY RF: 0 cholecalciferol (vitamin D3) [Vitamin D3] 25 mcg (1,000 unit) Capsule 0 mcg PO DAILY RF: 0 furosemide [Lasix] 40 mg tablet 40 mg PO DAILY Qty: 30 RF: 0 spironolactone 50 mg tablet 50 mg PO DAILY Qty: 30 RF: 0 Discharge Orders: Discharge Order (Routine); Ordered 12/05/21 Ordered By: River Ernst Admission Data Admit Date/Time: 12/02/21 23:27 Attending Provider: River Ernst Admit Provider: Leticia Greco Primary Care Provider: Cheryl Ortega Other Providers: Leticia Greco ; Armando Clay Other Interventions: Discharge Summary Assessment (RN) Last Done: 12/05/21 16:30 Coding Level of Care Code D/C DAY MANAGEMENT >30 MINS Diagnoses Sepsis A41.9 Sepsis acute organ dysfunction status: unspecified Sepsis type: sepsis due to unspecified organism Cirrhosis K74.60 Ascites presence: unspecified Hepatic cirrhosis type: unspecified hepatic cirrhosis Hypertension I10
[2021-12-06 14:11] LABS: Anti Mitochondrial Antibody NEGATIVE (NEGATIVE); Smooth Muscle Antibody NEGATIVE (NEGATIVE)
--- NOTE | 2021-12-14 07:40 | Coding Query ---
SEPSIS To promote full compliance with coding requirements relating to patient care, physician participation is requested in all cases of data coder operator uncertainty. Please assist us with the question(s) below: In responding to this query, please exercise your independent professional judgement. The fact that a question is asked does not imply that any particular answer is desired or expected. We appreciate your clarification on this issue. Throughout the medical record, you have clearly documented a localized infection and your patient has clinical evidence of a generalized sepsis or severe sepsis. The term urosepsis is a nonspecific entity and is coded as an UTI. If the patient has sepsis, severe sepsis, from an urinary source or some other source, please clarify in your response below. The medical record reflects the following clinical findings: Patient admitted with fever. Progress notes x2 mention Sepsis ... Discharge summary documented " fever probably secondary to Viral disease" . Procalcitonin negative . Please document the diagnosis that was treated if applicable. Thanks for your help. [facility] ____ ( )Bacteremia (Nonspecific laboratory finding of bacteria in the blood) Specify Organism ( ) Present on Admission ( ) Not present on admission ( ) Unable to clinically determine ( ) Septicemia (Systemic disease associated with the presence of pathogenic microorganisms in the blood): Specify Organism ( ) Present on Admission ( ) Not present on admission ( ) Unable to clinically determine ( ) Sepsis Specify Organism Specify Associated Condition/Diagnosis ( ) Present on Admission ( ) Not present on admission ( ) Unable to clinically determine ( ) Severe Sepsis (Sepsis associated with acute organ dysfunction) Specify Organism Specify Associated Condition/Diagnosis ( ) Present on Admission ( ) Not present on admission ( ) Unable to clinically determine ( ) Septic Shock (Severe sepsis with acute circulatory failure, unexplained by other causes) ( ) Present on Admission ( ) Not present on admission ( ) Unable to clinically determine (X ) Other, patient has contamination MTDD
== END 2021-12-05 17:00 | disposition home or self-care (01) | DRG 866 ==
LOC: ED 20:38 → SUATTDRO 23:27 → 2W 23:27

== ENCOUNTER 2022-10-14 04:44 | Observation (INO) ==
[2022-10-14] MEDS ORDERED: ONDANSETRON INJ 2 MG/ML 2 ML VIAL IV STA (05:00)
--- NOTE | 2022-10-14 05:04 | Emergency Department Note ---
ED Provider Note History of Present Illness Chief Complaint: Abdominal Pain Stated Complaint: STOMACH PAIN/POSSIBLE INTERNAL BLEED Time Seen by Provider: 10/14/22 04:52 Source: patient Mode of arrival: ambulatory Limitations: no limitations This patient is a 51-year-old male who presents emergency department for evaluation of abdominal pain. Patient reports that he was leaving work and had a sudden onset of abdominal pain at 3 AM, 2 hours prior to arrival. Pain radiates across his lower abdomen. He has associated nausea but has not vomited. Patient has a history of cirrhosis and esophageal varices. He denies any history of bleeding from the varices. He denies any vomiting or hematemesis. He does report a history of an umbilical hernia and states this is painful at this time. Patient denies changes in bowel movements, urinary symptoms or fevers. Home Medications Medication Instructions Recorded Confirmed Type furosemide 40 mg tablet (Lasix) 40 mg PO DAILY #30 tabs 11/26/21 12/23/21 Rx spironolactone 50 mg tablet 50 mg PO DAILY #30 tabs 11/26/21 12/23/21 Rx bee pollen 1 ea PO DAILY 12/20/21 12/23/21 History Allergies Allergy/AdvReac Type Severity Reaction Status Date / Time No Known Allergies Allergy Verified 12/23/21 13:20 Past Med/Surg History Medical History Arthralgia Cirrhosis EBV infection ADMITTED TO [facility] 11/2020 History of anxiety HX ANXIETY ATTACKS History of cardiac murmur as a child History of COVID-19 10/2020>CONGESTED *RESOLVED Hypertension 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 Tachycardia Surgical History History of cardiac cath 8 YEARS AGO>NO STENTS History of tonsillectomy History of tooth extraction Hx of vasectomy Family History Father Myocardial infarction Hypertension Grandfather Cirrhosis with alcoholism Grandfather (Paternal) Diabetes Other No family history of adverse response to anesthesia Social History Smoking Status: Former smoker Second Hand Exposure: Yes ( A CHILD); Hx Alcohol Use: No Hx Substance Use: No Preferred Language: Syriac Communication Ability: Effective Oil Mixer Required: No Beliefs That Will Affect Care: None marital status: Current Living Situation: Spouse Other Information That Helps Us Care for You: No Feels Safe at Home: Yes Safety Concerns: Feels Safe At This Time Assistive Devices: Glasses Physical Exam Vital Signs Vital Signs - 24 hr 10/14/22 04:48 10/14/22 05:03 10/14/22 05:30 Temperature 36.3 C L Temperature Source Temporal Artery Scan Pulse Rate 73 70 Pulse Rate [Apical] 78 Pulse Rhythm [Apical] Pulse Strength [Apical] Respiratory Rate 18 20 Respiratory Effort / Characteristics Non-Labored Spontaneous Non-Labored Spontaneous Respiratory Depth Normal Normal Respiratory Pattern Blood Pressure Blood Pressure [Right Arm] 175/87 H Blood Pressure Mean [Right Arm] 116 Blood Pressure Position [Right Arm] Pulse Oximetry 99 99 Oxygen Delivery Method Room Air Room Air Sepsis Recent Fever Within 48 Hours No Sepsis New/Unexplained Change in Mental Status N/A Sepsis Action Taken by Nursing No Action Required 10/14/22 06:13 10/14/22 08:00 10/14/22 08:00 Temperature Temperature Source Pulse Rate Pulse Rate [Apical] 75 89 Pulse Rhythm [Apical] Regular Pulse Strength [Apical] Normal Respiratory Rate 22 18 Respiratory Effort / Characteristics Non-Labored Spontaneous Non-Labored Respiratory Depth Normal Normal Respiratory Pattern Regular Regular Blood Pressure Blood Pressure [Right Arm] 160/83 H 147/75 H Blood Pressure Mean [Right Arm] 108 99 Blood Pressure Position [Right Arm] Lying Pulse Oximetry 99 98 Oxygen Delivery Method Room Air Room Air Room Air Sepsis Recent Fever Within 48 Hours Sepsis New/Unexplained Change in Mental Status Sepsis Action Taken by Nursing 10/14/22 09:32 10/14/22 09:41 Temperature 36.8 C Temperature Source Oral Pulse Rate 96 H 89 Pulse Rate [Apical] Pulse Rhythm [Apical] Pulse Strength [Apical] Respiratory Rate 16 Respiratory Effort / Characteristics Respiratory Depth Respiratory Pattern Blood Pressure 162/78 H Blood Pressure [Right Arm] Blood Pressure Mean [Right Arm] Blood Pressure Position [Right Arm] Pulse Oximetry 96 Oxygen Delivery Method Room Air Sepsis Recent Fever Within 48 Hours Sepsis New/Unexplained Change in Mental Status Sepsis Action Taken by Nursing VITALS: Vitals are noted on the nurse's note and reviewed by myself. GENERAL: This is a 51-year-old male, in no acute distress, sitting up in bed. SKIN: Jaundice noted. EYES: Scleral icterus noted. MOUTH: Mucous membranes moist. HEART: Regular rate and rhythm without murmurs gallops or rubs. LUNGS: Clear to auscultation bilaterally without wheezes, rales or rhonchi. ABDOMEN: Positive bowel sounds x 4. There is an umbilical hernia which is firm, tender to palpation and nonreducible. Abdomen soft, tender across the mid to lo wer abdomen. No guarding or rebound tenderness. NEURO: Patient was alert and oriented to person place and time. Course Administered Medications Lactated Ringer's (Lr) 1,000 mls @ 100 mls/hr IV .Q10H BLANCHE Stop: 11/13/22 08:59 Last Admin: 10/14/22 23:08 Dose: 100 mls/hr Documented By: Infusion: 10/14/22 22:52 Dose: 100 mls/hr Documented By: Infusion: 10/14/22 15:10 Dose: 100 mls/hr Documented By: Infusion: 10/14/22 14:32 Dose: 0 mls/hr Documented By: Admin: 10/14/22 12:14 Dose: 100 mls/hr Documented By: Infusion: 10/14/22 12:14 Dose: 100 mls/hr Documented By: Admin: 10/14/22 09:26 Dose: 100 mls/hr Documented By: TIGRE Cefoxitin Sodium 2,000 mg/ (Dextrose) 60 mls @ 100 mls/hr IV Q6H BLANCHE Stop: 10/18/22 15:29 Last Infusion: 10/14/22 21:20 Dose: 0 mls/hr Documented By: Admin: 10/14/22 20:42 Dose: 100 mls/hr Documented By: Infusion: 10/14/22 15:10 Dose: 0 mls/hr Documented By: Admin: 10/14/22 14:32 Dose: 100 mls/hr Documented By: ENEDELIA Discontinued Medications Bupivacaine HCl/Epinephrine Bitart (Bupivacaine/Epinephrine 0.5% Mpf 1:200,000 30 Ml Vial) Confirm Administered Dose 30 ml .ROUTE .ST-MED ONE Stop: 10/14/22 09:49 Last Admin: 10/14/22 10:59 Dose: 30 ml Documented By: MTH Hydromorphone HCl (Hydromorphone Inj 1 Mg/Ml Syringe) 1 mg IV NOW STA Stop: 10/14/22 07:22 Last Admin: 10/14/22 07:25 Dose: 1 mg Documented By: HARESH Cefoxitin Sodium (Mefoxin) 2,000 mg in 60 mls @ 100 mls/hr IV NOW STA Stop: 10/14/22 09:22 Last Infusion: 10/14/22 12:47 Dose: 0 mls/hr Documented By: Admin: 10/14/22 09:26 Dose: 100 mls/hr Documented By: TIGRE Ioversol (Optiray 320 500ml) 106 ml IV ONCE ONE Stop: 10/14/22 06:15 Last Admin: 10/14/22 06:14 Dose: 106 ml Documented By: KYLE Ondansetron HCl (Ondansetron Inj 2 Mg/Ml 2 Ml Vial) 4 mg IV NOW STA Stop: 10/14/22 05:01 Last Admin: 10/14/22 05:07 Dose: 4 mg Documented By: BHASKAR Medical Decision Making Differential Diagnosis Appendicitis, testicular torsion, infections, diverticulitis, UTI, obstruction, mesenteric ischemia, aortic pathology, inflammatory bowel disease, renal colic, PUD, pancreatitis, biliary pathology, hernia, volvulus, constipation, as well as other pathologies. Home Medications was personally reviewed by me Laboratory Data Attestation: I reviewed the patient's lab results. 10/14/22 05:10 10/14/22 05:10 Lab Results 10/14/22 10/14/22 10/14/22 Range/Units 05:10 05:10 05:10 WBC 2.84 L (4.8-10.8) K/ul RBC 3.81 L (4.70-6.10) M/uL Hgb 13.0 L (14.0-18.0) g/dl Hct 38.7 L (42.0-52.0) % MCV 101.6 H (80.0-100.0) fL MCH 34.1 H (25.0-34.0) pg MCHC 33.6 (32.0-36.0) g/dL RDW Std Deviation 55.4 H (36.4-46.3) fL RDW Coeff of Mina 14.6 H (11.5-14.5) % Plt Count 50 L (130-400) K/uL MPV 11.2 (9.4-12.4) fL Immature Gran % (Auto) 0.4 % Neut % (Auto) 64.8 % Lymph % (Auto) 24.6 % Ellis % (Auto) 6.7 % Eos % (Auto) 2.8 % Baso % (Auto) 0.7 % Neut # (Auto) 1.84 (1.40-6.50) K/uL Lymph # (Auto) 0.70 L (1.2-3.4) K/uL Ellis # (Auto) 0.19 (0.11-0.59) K/uL Eos # (Auto) 0.08 (0-0.50) K/uL Baso # (Auto) 0.02 (0-0.2) K/uL Immature Gran # (Auto) 0.01 (0.01-0.20) K/uL Platelet Estimate Decreased L (Normal) PT 13.5 H (9.0-12.0) Seconds INR 1.3 H (0.9-1.1) APTT 28.6 (21.0-31.0) Seconds PTT Ratio 1.0 Sodium 136 (136-145) mmol/L Potassium 3.4 L (3.5-5.1) mmol/L Chloride 106 (98-107) mmol/L Carbon Dioxide 21 (21-32) mmol/L Anion Gap 9 (3-11) BUN 12 (6-23) mg/dl Creatinine 0.68 (0.6-1.4) mg/dl Est Cr Clr Drug Dosing 204.5 ml/min Est GFR ( Amer) 126.4 ml/min Est GFR (Non-Af Amer) 109.0 ml/min BUN/Creatinine Ratio 17.6 (10-20) Glucose 115 H (70-99(Fasting)) mg/dl Calcium 8.7 (8.5-10.1) mg/dl Total Bilirubin 3.8 H (0.2-1.0) mg/dl AST 56 H (13-39) U/L ALT 19 (7-52) U/L Alkaline Phosphatase 86 (34-104) U/L Total Protein 7.8 (6.0-8.3) gm/dl Albumin 3.3 L (3.4-5.0) gm/dl Globulin 4.5 H (2.5-4.0) gm/dl Albumin/Globulin Ratio 0.7 L (0.9-2) Lipase 79 (11-82) U/L Urine Color Urine Appearance (Clear) Urine pH (4.5-7.5) Ur Specific [place] (1.000-1.030) Urine Protein (Negative) Urine Glucose (UA) (Negative) Urine Ketones (Negative) Urine Blood (Negative) Urine Nitrite (Negative) Urine Bilirubin (Negative) Urine Urobilinogen (Negative) Ur Leukocyte Esterase (Negative) Urine WBC (Auto) (0-5) /hpf Urine RBC (Auto) (0-4) /hpf U Hyaline Cast (Auto) (0-5) /lpf U Epithel Cells (Auto) (0-5) /lpf Urine Bacteria (Auto) (Negative) SARS-CoV-2, RNA, NAAT (NEGATIVE) 10/14/22 10/14/22 Range/Units 06:10 08:15 WBC (4.8-10.8) K/ul RBC (4.70-6.10) M/uL Hgb (14.0-18.0) g/dl Hct (42.0-52.0) % MCV (80.0-100.0) fL MCH (25.0-34.0) pg MCHC (32.0-36.0) g/dL RDW Std Deviation (36.4-46.3) fL RDW Coeff of Mina (11.5-14.5) % Plt Count (130-400) K/uL MPV (9.4-12.4) fL Immature Gran % (Auto) % Neut % (Auto) % Lymph % (Auto) % Ellis % (Auto) % Eos % (Auto) % Baso % (Auto) % Neut # (Auto) (1.40-6.50) K/uL Lymph # (Auto) (1.2-3.4) K/uL Ellis # (Auto) (0.11-0.59) K/uL Eos # (Auto) (0-0.50) K/uL Baso # (Auto) (0-0.2) K/uL Immature Gran # (Auto) (0.01-0.20) K/uL Platelet Estimate (Normal) PT (9.0-12.0) Seconds INR (0.9-1.1) APTT (21.0-31.0) Seconds PTT Ratio Sodium (136-145) mmol/L Potassium (3.5-5.1) mmol/L Chloride (98-107) mmol/L Carbon Dioxide (21-32) mmol/L Anion Gap (3-11) BUN (6-23) mg/dl Creatinine (0.6-1.4) mg/dl Est Cr Clr Drug Dosing ml/min Est GFR ( Amer) ml/min Est GFR (Non-Af Amer) ml/min BUN/Creatinine Ratio (10-20) Glucose (70-99(Fasting)) mg/dl Calcium (8.5-10.1) mg/dl Total Bilirubin (0.2-1.0) mg/dl AST (13-39) U/L ALT (7-52) U/L Alkaline Phosphatase (34-104) U/L Total Protein (6.0-8.3) gm/dl Albumin (3.4-5.0) gm/dl Globulin (2.5-4.0) gm/dl Albumin/Globulin Ratio (0.9-2) Lipase (11-82) U/L Urine Color Dark Yellow Urine Appearance Clear (Clear) Urine pH 5.0 (4.5-7.5) Ur Specific [place] > 1.045 H (1.000-1.030) Urine Protein Trace H (Negative) Urine Glucose (UA) Negative (Negative) Urine Ketones Trace H (Negative) Urine Blood Negative (Negative) Urine Nitrite Negative (Negative) Urine Bilirubin 1+ H (Negative) Urine Urobilinogen Negative (Negative) Ur Leukocyte Esterase Negative (Negative) Urine WBC (Auto) 1-5 (0-5) /hpf Urine RBC (Auto) 0-4 (0-4) /hpf U Hyaline Cast (Auto) 1-5 (0-5) /lpf U Epithel Cells (Auto) >30 H (0-5) /lpf Urine Bacteria (Auto) Negative (Negative) SARS-CoV-2, RNA, NAAT NEGATIVE (NEGATIVE) MDM Narrative Continuous cardiac cath lab radiology technologist: Order was placed for continuous cardiac cath lab radiology technologist. Patient was placed on the cardiac cath lab radiology technologist. Patient was noted to be in normal sinus rhythm at an initial rate of 72 bpm. The patient is a 51-year-old male who presents today complaining of abdominal pain. Labs revealed pancytopenia which is chronic for the patient. Patient's bilirubin is elevated at 3.8, INR 1.3 which is also chronic for the patient due to his cirrhosis. Patient does have an umbilical hernia which on exam today is firm, tender and nonreducible. Patient was placed in Trendelenburg with an ice pack and reduction was again attempted and unsuccessful. CT scan was performed and interpreted by myself which does show an umbilical hernia which contains bowel. Final radiology read was pending. Case was signed out to Bill Nunez PA-C at change of shift awaiting CT results and surgery consultation. Patient declined analgesics. Impression Abdominal pain Discharge Plan Visit Data Chief Complaint: Abdominal Pain Stated Complaint: STOMACH PAIN/POSSIBLE INTERNAL BLEED ED Provider: Paco Verduzco ED Midlevel Provider: Bill Nunez Discharge Problem: Abdominal pain Patient Disposition: Admitted As Inpatient Discharge Instructions Interventions: ED Discharge Assessment Last Done: 10/14/22 09:41
[2022-10-14 05:41] LABS: Albumin Globulin Ratio 0.7 (0.9-2); Albumin Level 3.3 gm/dl (3.4-5.0); BUN Creatinine Ratio 17.6 (10-20); Bilirubin,Total 3.8 mg/dl (0.2-1.0); Calcium 8.7 mg/dl (8.5-10.1); Creatinine Clr Calc Pharmacy 204.5 ml/min; Est GFR (African American) 126.4 ml/min; Globulin 4.5 gm/dl (2.5-4.0); Potassium 3.4 mmol/L (3.5-5.1); Total Protein 7.8 gm/dl (6.0-8.3)
[2022-10-14 05:47] LABS: Basophils # (auto) 0.02 K/uL (0-0.2); Basophils % (auto) 0.7 %; Eosinophils # (auto) 0.08 K/uL (0-0.50); Eosinophils % (auto) 2.8 %; Hematocrit (blood only) 38.7 % (42.0-52.0); Immature Granulocytes # (auto) 0.01 K/uL (0.01-0.20); Immature Granulocytes % (auto) 0.4 %; Lymphocytes % (auto) 24.6 %; Mean Corpuscular Hemoglobin 34.1 pg (25.0-34.0); Mean Corpuscular Hgb Conc 33.6 g/dL (32.0-36.0); Mean Corpuscular Volume 101.6 fL (80.0-100.0); Mean Platelet Volume 11.2 fL (9.4-12.4); Monocytes # (auto) 0.19 K/uL (0.11-0.59); Monocytes % (auto) 6.7 %; Neutrophils # (auto) 1.84 K/uL (1.40-6.50); Neutrophils % (auto) 64.8 %; Platelet Count 50 K/uL (130-400); Platelet Estimate Decreased (Normal); RDW Coefficient of Variation 14.6 % (11.5-14.5); RDW Standard Deviation 55.4 fL (36.4-46.3); Red Blood Count 3.81 M/uL (4.70-6.10); White Blood Count 2.84 K/ul (4.8-10.8)
[2022-10-14 06:11] LABS: INR 1.3 (0.9-1.1); Partial Thromboplastin Time 28.6 Seconds (21.0-31.0); Prothrombin Time 13.5 Seconds (9.0-12.0)
[2022-10-14] MEDS ORDERED: OPTIRAY 320 500ml IV ONE (06:14)
[2022-10-14 06:40] LABS: Appearance Urine Clear (Clear); Bacteria Urine Automated Negative (Negative); Blood Urine Negative (Negative); Color Urine Dark Yellow; Epithelial Cell Urine Auto >30 /lpf (0-5); Glucose Urine UA Negative (Negative); Ketones Urine Trace (Negative); Leukocyte Esterase Urine Negative (Negative); Nitrite Urine Negative (Negative); Protein Urine Trace (Negative); RBC Urine Automated 0-4 /hpf (0-4); Specific Gravity Urine > 1.045 (1.000-1.030); Urobilinogen Urine Negative (Negative)
[2022-10-14 07:16] LABS: Bilirubin Urine 1+ (Negative)
[2022-10-14] MEDS ORDERED: HYDROmorphone INJ 1 MG/ML SYRINGE IV STA (07:21)
--- NOTE | 2022-10-14 07:40 | Emergency Department Note ---
ED Visit Note I received patient in signout from Oliva Lowery PA-C at 0700 hrs. on 10/14/2022. Patient was awaiting CT scan results per radiology of the abdomen/pelvis. I reviewed the imaging. I also went to bedside and examined the patient. He was noting some abdominal discomfort but overall clinically well-appearing. There is clinically a nonreducible periumbilical hernia present. Upon review of the images it appears that this does contain a loop of intestine. I then discussed this at 7:[address] Wilder the on-call general surgeon. I did order the patient IV Dilaudid for pain. Patient was placed in mild Trendelenburg. Dr. Wilder came to evaluate the patient. Plan will be for operative management. Please refer to further documentation regarding his stay. .
--- NOTE | 2022-10-14 08:43 | History & Physical Report ---
Date of Service October 14, 2022 Assessment & Plan (1) Umbilical hernia with obstruction, without gangrene: Plan: to OR for exploration IV abx Present on Admission?: Yes (2) Cirrhosis of liver: Plan: Con't meds Present on Admission?: Yes (3) Hypertension: Plan: con't meds Present on Admission?: Yes Admission and Anticipated Discharge Date Anticipated date of discharge: 10/14/22 History of Present Illness Primary Care Provider: Cheryl Ortega PA-C This is a 51-year-old male who came to ED with abdominal pain and a known umbilical hernia which he reduces daily. The pain is associated with a lump in his hernia. He has associated nausea but has not vomited. Patient has a history of cirrhosis and esophageal varices. He denies any vomiting or hematemesis. Patient denies changes in bowel movements, urinary symptoms or fevers. A CT scan shows an incarcerated umbilical hernia wirh bowel which could not be reduced in ED. Allergies Allergy/AdvReac Type Severity Reaction Status Date / Time No Known Allergies Allergy Verified 12/23/21 13:20 Home Medications Medication Instructions Recorded Confirmed Type furosemide 40 mg tablet (Lasix) 40 mg PO DAILY #30 tabs 11/26/21 12/23/21 Rx spironolactone 50 mg tablet 50 mg PO DAILY #30 tabs 11/26/21 12/23/21 Rx bee pollen 1 ea PO DAILY 12/20/21 12/23/21 History Past Med/Surg History Medical History Arthralgia Cirrhosis EBV infection ADMITTED TO [facility] 11/2020 History of anxiety HX ANXIETY ATTACKS History of cardiac murmur as a child History of COVID-19 10/2020>CONGESTED *RESOLVED Hypertension 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 Tachycardia Surgical History History of cardiac cath 8 YEARS AGO>NO STENTS History of tonsillectomy History of tooth extraction Hx of vasectomy Family History Father Myocardial infarction Hypertension Grandfather Cirrhosis with alcoholism Grandfather (Paternal) Diabetes Other No family history of adverse response to anesthesia Social History Smoking Status: Never smoker Second Hand Exposure: Yes ( A CHILD); Hx Alcohol Use: No Hx Substance Use: No Preferred Language: Lao Communication Ability: Effective Risk Adjustment Specialist Required: No Beliefs That Will Affect Care: None marital status: Current Living Situation: Family Feels Safe at Home: Yes Assistive Devices: Glasses Review of Systems no fever and no chills no problem reported no problem reported no cough and no dyspnea no chest pain, no chest pain at rest, no chest pain with activity and no dyspnea on exertion + abdominal pain and + nausea; no vomiting, no coffee ground emesis, no hemat emesis and no change in bowel habits no dysuria no back pain and no neck pain no problem reported no problem reported no problem reported no problem reported no easy bleeding and no easy bruising Physical Exam Constitutional: well developed and well nourished; no acute distress Eyes: PERRL, conjunctivae normal, anicteric sclerae ENMT: external ear and nose normal, oropharynx normal Neck: trachea midline Respiratory: normal respiratory effort, lungs clear to auscultation no respiratory distress Cardiovascular: RRR, no murmur, no edema Gastrointestinal (Abdomen): Inspection/Auscultation: abdomen normal to inspection, normal bowel sounds and + visible herniation; abdomen not distended Percussion/Palpation: + abdomen tender, abdomen soft and + hernia; no guarding and abdomen not rigid Musculoskeletal: Head/Neck/Chest: normocephalic and head atraumatic Skin: no rashes, warm and dry Psychiatric: Orientation: alert and oriented x 3 Lymphatic: no lymphadenopathy ASA Classification ASA ASA3E Results & Data ([facility]) Vital Signs (Past 12 Hours) Vital Signs Temp Pulse Pulse Resp BP Pulse Ox O2 Del Method 10/14/22 08:00 89 18 147/75 H 98 Room Air 10/14/22 08:00 Room Air 10/14/22 06:13 75 22 160/83 H 99 Room Air 10/14/22 05:30 70 10/14/22 05:03 78 20 175/87 H 99 Room Air 10/14/22 04:48 36.3 C L 73 18 99 Room Air Diagnostic Findings CT scan with incarcerated umbilical hernia, SB. Code Status & VTE Plan VTE Prophylaxis Plan VTE Prophylaxis will be ordered: Yes
[2022-10-14] MEDS ORDERED: cefOXitin 2,000 MG/60 ML BAG IV STA (08:47)
[2022-10-14] MEDS: LACTATED RINGER'S 1,000 ML IV SCH ×3 (09:26→23:08)
[2022-10-14] MEDS ORDERED: MIDAZOLAM HCL 1 MG/ML 2ML VIAL ONE (09:45)
[2022-10-14] MEDS ORDERED: fentaNYL citrate 100 MCG/2 ML VIAL ONE ×2 (09:45→10:32)
[2022-10-14] MEDS ORDERED: BUPIVACAINE/EPINEPHRINE 0.5% MPF 1:200,000 30 ML VIAL ONE (09:48)
--- NOTE | 2022-10-14 09:58 | Anesthesiology Consultation ---
Date of Service October 14, 2022 Assessment & Plan Chart Review Chart Review: Acceptable Risk for Surgery Consults Requested none History Surgery Operation Date: 10/14/22 10:00 Proposed Procedures p Umbilical Hernia Repair - Gabriele Dominguez MD Height/Weight Height: 6 ft 5 in Weight: 154 kg Allergies Allergy/AdvReac Type Severity Reaction Status Date / Time No Known Allergies Allergy Verified 12/23/21 13:20 Medications Home Medications Medication Instructions Recorded Confirmed Last Taken furosemide 40 mg tablet (Lasix) 40 mg PO DAILY #30 tabs 11/26/21 12/23/21 12/21/21 spironolactone 50 mg tablet 50 mg PO DAILY #30 tabs 11/26/21 12/23/21 12/21/21 bee pollen 1 ea PO DAILY 12/20/21 12/23/21 12/21/21 Active Medications Generic Name Dose Route Start Last Admin Trade Name Freq PRN Reason Stop Dose Admin Lactated Ringer's 1,000 mls @ 100 mls/hr 10/14/22 09:00 10/14/22 09:26 Lr IV 11/13/22 08:59 100 mls/hr .Q10H BLANCHE Administration Past Medical History Medical History Arthralgia Cirrhosis EBV infection ADMITTED TO [facility] 11/2020 History of anxiety HX ANXIETY ATTACKS History of cardiac murmur as a child History of COVID-19 10/2020>CONGESTED *RESOLVED Hypertension 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 Tachycardia Past Family History Family History Father Myocardial infarction Hypertension Grandfather Cirrhosis with alcoholism Grandfather (Paternal) Diabetes Other No family history of adverse response to anesthesia Past Surgical History Surgical History History of cardiac cath 8 YEARS AGO>NO STENTS History of tonsillectomy History of tooth extraction Hx of vasectomy Social History Smoking Status: Never smoker tobacco type: smokeless tobacco Hx Alcohol Use: No Alcohol type: hard liquor alcohol intake frequency: other Hx Substance Use: No substance use type: does not use Physical Exam Vital Signs Last Vital Signs Temp 36.8 C 10/14/22 09:41 Pulse 89 10/14/22 09:41 Resp 16 10/14/22 09:41 BP 162/78 H 10/14/22 09:41 Pulse Ox 96 10/14/22 09:41 O2 Del Method Room Air 10/14/22 09:41 Testing Laboratory Results 10/14/22 05:10 10/14/22 05:10 PT 13.5 Seconds (9.0-12.0) H 10/14/22 05:10 INR 1.3 (0.9-1.1) H 10/14/22 05:10 APTT 28.6 Seconds (21.0-31.0) 10/14/22 05:10 Urine Color Dark Yellow 10/14/22 06:10 Urine Appearance Clear (Clear) 10/14/22 06:10 Urine pH 5.0 (4.5-7.5) 10/14/22 06:10 Ur Specific [place] > 1.045 (1.000-1.030) H 10/14/22 06:10 Urine Protein Trace (Negative) H 10/14/22 06:10 Urine Glucose (UA) Negative (Negative) 10/14/22 06:10 Urine Ketones Trace (Negative) H 10/14/22 06:10 Urine Nitrite Negative (Negative) 10/14/22 06:10 Ur Leukocyte Esterase Negative (Negative) 10/14/22 06:10 Urine WBC (Auto) 1-5 /hpf (0-5) 10/14/22 06:10 Urine RBC (Auto) 0-4 /hpf (0-4) 10/14/22 06:10 U Hyaline Cast (Auto) 1-5 /lpf (0-5) 10/14/22 06:10 U Epithel Cells (Auto) >30 /lpf (0-5) H 10/14/22 06:10 Urine Bacteria (Auto) Negative (Negative) 10/14/22 06:10
[2022-10-14] MEDS ORDERED: HYDROmorphone INJ 2 MG/ML SYR/VIAL IV PRN (10:00)
[2022-10-14] MEDS ORDERED: fentaNYL citrate 100 MCG/2 ML VIAL IV PRN (10:00)
[2022-10-14] MEDS ORDERED: ONDANSETRON INJ 2 MG/ML 2 ML VIAL IV PRN ×2 (10:00→12:02)
[2022-10-14] MEDS ORDERED: PROMETHAZINE HCL 12.5 MG in SODIUM CHLORIDE 0.9% 50 ML IV PRN (10:00)
[2022-10-14] MEDS ORDERED: ePHEDrine sulfate 50 MG/ML AMP IV PRN (10:00)
[2022-10-14] MEDS ORDERED: ATROPINE SULFATE 0.1 MG/ML 10ML SYR IV PRN (10:00)
--- NOTE | 2022-10-14 10:15 | CT Scan Report ---
Exam(s): CT ABDOMEN + PELVIS With Contrast IV Amt: 106 cc's EXAM: CT Abdomen and Pelvis With Intravenous Contrast CLINICAL HISTORY: Reason for exam: lower abdominal pain, nausea, umbilical hernia. TECHNIQUE: Axial computed tomography images of the abdomen and pelvis with intravenous contrast. Automated exposure control was utilized for the study. A dose lowering technique was utilized adhering to the principles of ALARA. CONTRAST: Patient received 106 cc's of IV contrast COMPARISON: No relevant prior studies available. FINDINGS: Lung bases: Unremarkable. No mass. No consolidation. ABDOMEN: Liver: Cirrhotic liver with portal hypertension and moderate splenomegaly. Gallbladder and bile ducts: Cholelithiasis. No ductal dilation. Pancreas: Unremarkable. No mass. No ductal dilation. Spleen: See above. Adrenals: Unremarkable. No mass. Kidneys and ureters: Unremarkable. No solid mass. No hydronephrosis. Stomach and bowel: There is umbilical hernia measuring 5.2 cm in diameter, containing a loop of small bowel. No evidence of bowel obstruction. No mucosal thickening. PELVIS: Appendix: No findings to suggest acute appendicitis. Bladder: Unremarkable. No mass. Reproductive: Unremarkable as visualized. ABDOMEN and PELVIS: Intraperitoneal space: Unremarkable. No free air. No significant fluid collection. Bones/joints: No acute fracture. No dislocation. Soft tissues: See above. Vasculature: Unremarkable. No abdominal aortic aneurysm. Lymph nodes: Unremarkable. No enlarged lymph nodes. IMPRESSION: 1. No acute abdominal process identified 2. Cirrhotic liver with portal hypertension 3. Umbilical hernia containing a loop of small bowel. No bowel obstruction Electronically signed by: Lee Shaver MD 10/14/22 10:15 AM
--- NOTE | 2022-10-14 11:02 | Post Operative Brief Note ---
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
--- NOTE | 2022-10-14 11:27 | Operative Report (OR) ---
DATE OF PROCEDURE: 10/14/2022 PREOPERATIVE DIAGNOSIS: Incarcerated umbilical hernia. POSTOPERATIVE DIAGNOSIS: Incarcerated umbilical hernia with loop of small bowel. PROCEDURE PERFORMED: Open umbilical hernia repair with primary suture and reduction of incarcerated small bowel. SURGEON: Gabriele Dominguez M.D. UPHOLSTERER INSIDE: None. ANESTHESIA: General endotracheal with 0.5% Marcaine with epinephrine local. ESTIMATED BLOOD LOSS: 15 mL. DRAINS: None. COMPLICATIONS: None. SPECIMENS: None. INDICATIONS FOR PROCEDURE: This is a 51-year-old male with a known umbilical hernia, who reduces thi s often times, but it became incarcerated. Last night, he was not able to reduce it and was seen in the ED. He had a CT scan, which showed an incarcerated umbilical hernia. It was unable to be reduce d. The CT showed small bowel loop, which appeared viable without any signs of obstruction. We talke d to him in detail about the findings and recommended urgent exploration and repair of the hernia. W huong talked about the increased risk of recurrence, infection, possible small bowel resection, and possi ble repeat operation for necrotic bowel. He understands all this and wishes to proceed. DESCRIPTION OF PROCEDURE: The patient was taken to the OR and underwent excellent general anesthesia . The abdomen was prepped and draped in normal sterile fashion. Transverse supraumbilical incision was made. Dissection was taken down to identify his hernia sac. Even under anesthesia, his sac was not able to be reduced. The hernia sac was entered sharply with Metzenbaum scissors. There was a ru sh of fluid and a loop of bowel was identified. This appeared viable, but was somewhat purple. The hernia was then opened laterally away from the bowel. The bowel was brought up and identified that t he bowel was viable without any sign of necrotic area. This was then replaced after a period of obse rvation. Once this was done, 2-0 Vicryl sutures were placed in the hernia, which had a good fascia, but was about 1.5 cm in diameter. A series of 0 Ethibond sutures were used to close the defect with interrupted [id number] manner. Marcaine 0.5% with epinephrine local was used to create a local field block. Umbilicoplasty was then created. The cavity was then irrigated with saline. The umbil icus was sewn down to the fascia. Interrupted Vicryl was used to close the deep dermis and the stapl es were used to close the skin. He tolerated the procedure without complications. He will be sent t o the postoperative recovery, watch for a period of time, and then sent to the floor for a period of observation. Job ID: [id number]
[2022-10-14] MEDS ORDERED: oxyCODONE/ACETAMINOPHEN 5mg/325mg TAB PO PRN (12:02)
[2022-10-14] MEDS ORDERED: MoRPHine SULFATE 2 MG/ML CARP IV PRN (12:02)
--- NOTE | 2022-10-14 12:05 | Anesthesiology Progress Note ---
Date of Service October 14, 2022 Anesthesia Post Procedure Vital Signs Vital Signs: Temp Pulse Pulse Resp BP BP Pulse Ox 10/14/22 11:40 36.4 C L 99 H 18 169/84 H 97 10/14/22 11:30 102 H 18 161/78 H 97 10/14/22 11:20 105 H 20 142/80 H 100 10/14/22 11:13 36.5 C 101 H 18 150/91 H 98 10/14/22 09:41 36.8 C 89 16 162/78 H 96 10/14/22 09:32 96 H 10/14/22 08:00 89 18 147/75 H 98 10/14/22 08:00 10/14/22 06:13 75 22 160/83 H 99 10/14/22 05:30 70 10/14/22 05:03 78 20 175/87 H 99 10/14/22 04:48 36.3 C L 73 18 99 O2 Del Method O2 Flow Rate 10/14/22 11:40 Room Air 10/14/22 11:30 Room Air 10/14/22 11:20 Oxymask 3 10/14/22 11:13 Oxymask 5 10/14/22 09:41 Room Air 10/14/22 09:32 10/14/22 08:00 Room Air 10/14/22 08:00 Room Air 10/14/22 06:13 Room Air 10/14/22 05:30 10/14/22 05:03 Room Air 10/14/22 04:48 Room Air Transfer of Care Handoff Completed per policy Notes Mental Status: alert / awake / arousable and participated in evaluation Patient Amnestic to Procedure: Yes Nausea / Vomiting: adequately controlled Pain: adequately controlled Airway Patency, RR, SpO2: stable & adequate BP & HR: stable & adequate Hydration State: stable & adequate Anesthetic Complications: no major complications apparent
[2022-10-14] MEDS: cefOXitin 2,000 MG in DEXTROSE 5% 50 ML IV SCH ×2 (14:32→20:42)
[2022-10-15] MEDS: cefOXitin 2,000 MG in DEXTROSE 5% 50 ML IV SCH ×2 (03:20→09:08)
[2022-10-15 06:20] LABS: Hematocrit (blood only) 32.4 % (42.0-52.0); Hemoglobin 11.5 g/dl (14.0-18.0); Immature Granulocytes # (auto) 0.02 K/uL (0.01-0.20); Immature Granulocytes % (auto) 0.3 %; Lymphocytes # (auto) 0.51 K/uL (1.2-3.4); Lymphocytes % (auto) 6.6 %; Mean Corpuscular Hemoglobin 34.7 pg (25.0-34.0); Mean Corpuscular Hgb Conc 35.5 g/dL (32.0-36.0); Mean Corpuscular Volume 97.9 fL (80.0-100.0); Mean Platelet Volume 11.3 fL (9.4-12.4); Monocytes # (auto) 0.39 K/uL (0.11-0.59); Neutrophils # (auto) 6.84 K/uL (1.40-6.50); Neutrophils % (auto) 88.1 %; Platelet Count 60 K/uL (130-400); RDW Coefficient of Variation 14.5 % (11.5-14.5); RDW Standard Deviation 51.8 fL (36.4-46.3); Red Blood Count 3.31 M/uL (4.70-6.10); White Blood Count 7.76 K/ul (4.8-10.8)
[2022-10-15 06:37] LABS: BUN Creatinine Ratio 20.6 (10-20); Calcium 8.1 mg/dl (8.5-10.1); Creatinine Clr Calc Pharmacy 220.7 ml/min; Est GFR (African American) 130.4 ml/min; Est GFR (Non-African American) 112.5 ml/min; Potassium 4.2 mmol/L (3.5-5.1)
[2022-10-15] MEDS: LACTATED RINGER'S 1,000 ML IV SCH (10:07)
--- NOTE | 2022-10-15 11:39 | Surgery Progress Note ---
Date of Service October 15, 2022 Assessment & Plan (1) Umbilical hernia with obstruction, without gangrene: Plan: labs good no pain discharge Admission and Anticipated Discharge Date Admission Date: October 14, 2022 Subjective doing well Physical Exam Gastrointestinal (Abdomen): Inspection/Auscultation: abdomen normal to inspection, normal bowel sounds and + abdominal surgical incision (clean and dry); abdomen not distended Results & Data ([facility]) Vital Signs (Past 12 Hours) Vital Signs Temp Pulse Resp BP Pulse Ox O2 Del Method 10/15/22 07:46 36.7 C 84 16 156/74 H 95 Room Air 10/15/22 02:59 36.8 C 89 16 157/87 H 94 Room Air
--- NOTE | 2022-10-15 11:51 | Discharge Summary (DS) ---
DATE OF ADMISSION: 10/14/2022 DATE OF DISCHARGE: 10/15/2022 DIAGNOSES: 1. Incarcerated umbilical hernia. 2. Cirrhosis of the liver. 3. Hypertension. ATTENDING: Gabriele Dominguez MD. HISTORY OF PRESENT ILLNESS: This is a 51-year-old male admitted through the ED with acute abdominal pain with an incarcerated hernia by exam and by CT. He will be taken to the OR for repair and reduct ion of his hernia. SURGICAL PROCEDURES: Open umbilical hernia repair with reduction of an incarcerated hernia on 023. HOSPITAL COURSE: The patient was admitted, taken to the OR after he received IV fluids and IV antibi otics. Underwent an uncomplicated reduction. His bowel was entrapped and somewhat purple, but was v iable. This was reduced. His hernia was repaired. He was brought to the floor for his care. He to lerated the procedure well. Good pain control, tolerating a diet. He was ambulating and had no post operative difficulties. His labs looked fine the next morning. He had no fevers, no nausea, no vomi ting. He will be discharged home on postoperative day #1. DISCHARGE MEDICATIONS: Bee pollen granules 1 p.o. daily, Lasix 40 mg p.o. daily, spironolactone 50 mg p.o. daily. DIET: Regular as tolerated. ACTIVITY: No strenuous activity for 4 weeks. FOLLOWUP: Follow up in my office in 2 weeks. Job ID: [id number]
== END 2022-10-15 13:14 | disposition home or self-care (01) ==
LOC: ED 04:44 → 3E 09:41 → OR 09:41